=== PATIENT | male | born 1975 | race Caucasian/White ===

== ENCOUNTER → 2017-08-07 | Outpatient (REF) | payer OTHER ==
[2017-08-07 14:02] LABS: ALBUMIN 3.9 GM/DL (3.2-5.2); ALKALINE PHOSPHATASE 64 U/L (45-117); ALT/SGPT 60 U/L (12-78); ANION GAP 6 MEQ/L (8-16); AST/SGOT 48 U/L (7-37); BILIRUBIN,TOTAL 0.7 MG/DL (0.2-1.0); BLOOD UREA NITROGEN 8 MG/DL (7-18); CALCIUM LEVEL 9.4 MG/DL (8.5-10.1); CARBON DIOXIDE LEVEL 28 MEQ/L (21-32); CHLORIDE LEVEL 98 MEQ/L (98-107); CREATININE FOR GFR 0.82 MG/DL (0.70-1.30); GLOMERULAR FILTRATION RATE > 60.0 (>60); GLUCOSE, FASTING 114 MG/DL (70-100); POTASSIUM SERUM 4.5 MEQ/L (3.5-5.1); SODIUM LEVEL 132 MEQ/L (136-145); TOTAL PROTEIN 7.8 GM/DL (6.4-8.2)
[2017-08-07 14:06] LABS: INR 1.03; PROTHROMBIN TIME 13.7 SECONDS (12.4-14.5)
[2017-08-08 10:36] LABS: ALPHA FETOPROTEIN TUMOR QUANT < 1.3 NG/ML (<8.1)
== END ==
LOC: M SFHCADAM 08:13
DX: K75.81 Nonalcoholic steatohepatitis (NASH) (principal)

== ENCOUNTER → 2018-01-31 | Outpatient (CLI) | payer OTHER | LOC: M RAD 08:13 | DX: K75.81 Nonalcoholic steatohepatitis (NASH) (principal) | CPT/HCPCS: 76705 ==

== ENCOUNTER → 2018-02-21 | Outpatient (REF) | payer OTHER ==
[2018-02-21 13:12] LABS: INR 0.95; PROTHROMBIN TIME 12.8 SECONDS (12.1-14.4)
[2018-02-21 13:26] LABS: ALBUMIN 3.8 GM/DL (3.2-5.2); ALBUMIN/GLOBULIN RATIO 1.03 (1.00-1.93); ALKALINE PHOSPHATASE 83 U/L (45-117); ALT/SGPT 76 U/L (12-78); ANION GAP 12 MEQ/L (8-16); AST/SGOT 90 U/L (7-37); BILIRUBIN,TOTAL 0.4 MG/DL (0.2-1.0); BLOOD UREA NITROGEN 5 MG/DL (7-18); CALCIUM LEVEL 8.6 MG/DL (8.5-10.1); CARBON DIOXIDE LEVEL 24 MEQ/L (21-32); CHLORIDE LEVEL 96 MEQ/L (98-107); CHOLESTEROL LEVEL 167 MG/DL (<200); CHOLESTEROL RISK RATIO 2.455 (<5); CREATININE FOR GFR 0.78 MG/DL (0.70-1.30); GLOMERULAR FILTRATION RATE > 60.0 (>60); GLUCOSE, FASTING 84 MG/DL (70-100); HDL CHOLESTEROL 68 MG/DL (>40); LDL CHOLESTEROL 50 MG/DL (<100); NON-HDL-C 99 MG/DL; POTASSIUM SERUM 3.8 MEQ/L (3.5-5.1); SODIUM LEVEL 132 MEQ/L (136-145); TOTAL PROTEIN 7.5 GM/DL (6.4-8.2); TRIGLYCERIDES LEVEL 243 MG/DL (<150)
[2018-02-23 09:59] LABS: ALPHA FETOPROTEIN TUMOR QUANT 2.3 NG/ML (<8.1)
== END ==
LOC: M SFHCADAM 10:09
DX: K75.81 Nonalcoholic steatohepatitis (NASH) (principal); E78.49 Other hyperlipidemia; E11.9 Type 2 diabetes mellitus without complications; E55.9 Vitamin D deficiency, unspecified

== ENCOUNTER → 2018-09-14 | Outpatient (CLI) | payer OTHER ==
[~2018-09-14] MED LIST: AMOXICILLIN XX; ASPI81TA83 OR; GLUC10TA3 OR; GLUC850T OR; HYDR25TA6 OR; INSULANT SC; LISI20TA5 OR; REFLUX MED PO; ZOCO5TAB OR; [UNRECOGNIZED DRUG - OTHER]; novolo
--- NOTE | 2018-09-14 13:16 | REP ---
CAROTID ULTRASOUND: Real-time ultrasound evaluation and duplex Doppler interrogation of the extracranial carotid vasculature is performed. There is mild plaquing and narrowing in both carotid bulbs extending into the internal and external carotid arteries. Luminal narrowing is less than 50%. There is no evidence of hemodynamically significant stenosis of either internal carotid artery. Normal flow velocities are seen. The vertebral arteries demonstrate normal direction of flow. RIGHT LEFT Peak systolic velocity ICA 112.8 cm/s 95.4 cm/s End diastolic velocity ICA 36.9 cm/s 27.2 cm/s Peak systolic velocity CCA 154.8 cm/s 158.4 cm/s Peak systolic velocity ECA 194.4 cm/s 136.2 cm/s ICA/CCA ratio 1.04 0.90 IMPRESSION: Bilateral luminal narrowing of the internal carotid arteries less than 50%. No evidence of hemodynamically significant stenosis. Electronically Signed by Shyam De La Garza MD 09/14/2018 01:08 P
--- NOTE | 2018-09-19 00:21 | ECHO ---
DATE OF PROCEDURE: 09/14/2018 DATE OF ; 1975 AGE: 43 REFERRING PROVIDER: KISHOR Cuadra REASON FOR THE STUDY: Generalized edema. 2D MEASUREMENTS: IVS: 1.0 cm LV: 4.9 cm LVPW: 1.0 cm LA: 4.0 cm Aorta: 2.7 cm RV: 3.2 cm IVC: 1.5 cm DOPPLER MEASUREMENTS: Peak velocity across the aortic valve: 1.5 m/s Peak velocity across the LVOT: 1.4 m/s Mitral E: 1.0, Mitral A: 0.89 with a ratio of 1.1 2D COMMENTS: 1. Normal left ventricular size, wall thickness, and normal global left ventricular systolic function. The estimated left ventricular systolic ejection fraction is 60-65%. 2. Borderline enlarged left atrium at 4.0 cm. Normal right atrium and right ventricle. 3. The atrial septum appeared to be normal without evidence of defect or shunt. 4. Normal aortic root. 5. No pericardial effusion seen. 6. The aortic valve, mitral valve, tricuspid valve, and pulmonic valve appeared to be normal. The proximal pulmonary artery branches were not well visualized. 7. The inferior vena cava was normal in size, central venous pressure is most likely normal. DOPPLER: No significant valvular abnormalities detected. Abnormal relaxation pattern was noted across the mitral valve annulus consistent with pseudo-normal pattern, left ventricular end-diastolic pressure might be elevated. IMPRESSION: 1. Normal global left ventricular systolic function. There are features of left ventricular diastolic dysfunction, grade 2. 2. No significant valvular abnormality detected. MTDD
== END ==
LOC: M RAD 11:44
PROVIDERS: ATTEND Physician Assistant Medical
DX: I77.9 Disorder of arteries and arterioles, unspecified (principal); R60.1 Generalized edema; I11.9 Hypertensive heart disease without heart failure

== ENCOUNTER → 2018-11-19 | Outpatient (REF) | payer OTHER ==
[~2018-11-19] MED LIST changes: +FINA5TAB2; +FURO20TA2; +HYDR-3716; +KEFL500C17 PO; +MORP-69
[2018-11-19 14:09] LABS: APPEARANCE, URINE CLEAR (CLEAR); BACTERIA, URINE AUTO NEGATIVE (NEGATIVE); BILIRUBIN, URINE AUTO NEGATIVE (NEGATIVE); BLOOD, URINE BLOOD NEGATIVE (NEGATIVE); COLOR, URINE STRAW (YELLOW); GLUCOSE, URINE (UA) AUTO NEGATIVE (NEGATIVE); KETONE, URINE AUTO NEGATIVE (NEGATIVE); LEUKOCYTE ESTERASE, URINE AUTO NEGATIVE (NEGATIVE); MUCUS, URINE SMALL (NEGATIVE); NITRITE, URINE AUTO NEGATIVE (NEGATIVE); PROTEIN, URINE AUTO NEGATIVE (NEGATIVE); RBC, URINE AUTO 0 /HPF (0-3); SPECIFIC GRAVITY URINE AUTO 1.002 (1.002-1.035); SQUAMOUS EPITHELIAL CELL UR AU 0 /HPF (0-6); UROBILINOGEN, URINE AUTO 0.2 mg/dL (0.0-2.0); WBC, URINE AUTO 0 /HPF (0-3)
[2018-11-19 14:10] LABS: WHITE BLOOD COUNT 5.5 10^3/uL (4.0-10.0)
[2018-11-19 14:11] LABS: BASO % 0.4 % (0.0-1.0); EOS # 0.1 10^3/uL (0.0-0.50); EOS % 1.6 % (0.0-3.0); HEMOGLOBIN 13.5 g/dl (13.5-17.5); LYMPH % 35.5 % (24.0-44.0); MEAN CORPUSCULAR HEMOGLOBIN 32.7 pg (27.0-33.0); MEAN CORPUSCULAR HGB CONC 34.6 g/dl (32.0-36.5); MEAN CORPUSCULAR VOLUME 94.4 fl (80.0-96.0); MONO # 0.5 10^3/uL (0.0-0.8); MONO % 9.5 % (0.0-5.0); NEUTROPHILS # 2.9 10^3/uL (1.8-7.7); NEUTROPHILS % 52.8 % (36.0-66.0); PLATELET COUNT, AUTOMATED 206 10^3/uL (150-450); RED BLOOD COUNT 4.13 10^6/uL (4.30-6.10)
[2018-11-19 14:28] LABS: ALBUMIN 3.9 GM/DL (3.2-5.2); ALT/SGPT 45 U/L (12-78); BILIRUBIN,TOTAL 0.6 MG/DL (0.2-1.0); BLOOD UREA NITROGEN 4 MG/DL (7-18); CALCIUM LEVEL 9.4 MG/DL (8.5-10.1); CARBON DIOXIDE LEVEL 27 MEQ/L (21-32); CHLORIDE LEVEL 98 MEQ/L (98-107); CHOLESTEROL LEVEL 170 MG/DL (<200); CHOLESTEROL RISK RATIO 3.148 (<5); CREATININE FOR GFR 0.78 MG/DL (0.70-1.30); GLOMERULAR FILTRATION RATE > 60.0 (>60); GLUCOSE, FASTING 109 MG/DL (70-100); HDL CHOLESTEROL 54 MG/DL (>40); NON-HDL-C 116 MG/DL; POTASSIUM SERUM 3.9 MEQ/L (3.5-5.1); SODIUM LEVEL 134 MEQ/L (136-145); TOTAL PROTEIN 7.6 GM/DL (6.4-8.2); TRIGLYCERIDES LEVEL 468 MG/DL (<150)
[2018-11-19 14:35] LABS: HEMOGLOBIN A1c 5.9 %
[2018-11-19 14:53] LABS: CREATININE, URINE 22.3 MG/DL; MALB URINE SIEMENS 18.2 MG/L; MAU/CREAT RATIO 81.6 MCG/MG (0.0-30.0)
== END ==
LOC: M SFHCADAM 09:02
PROVIDERS: ATTEND Physician Assistant Medical
DX: E11.9 Type 2 diabetes mellitus without complications (principal); F17.210 Nicotine dependence, cigarettes, uncomplicated; K75.81 Nonalcoholic steatohepatitis (NASH); G47.33 Obstructive sleep apnea (adult) (pediatric); E78.49 Other hyperlipidemia; K21.9 Gastro-esophageal reflux disease without esophagitis; I77.9 Disorder of arteries and arterioles, unspecified; M51.36 Other intervertebral disc degeneration, lumbar region; R39.12 Poor urinary stream

== ENCOUNTER 2018-11-22 18:01 | Emergency (ER) | payer OTHER ==
[~2018-11-22] VITALS: Ht 182.9 cm; Wt 118.2 kg
[~2018-11-22 18:01] MED LIST changes: -FINA5TAB2; -FURO20TA2; -HYDR-3716; -KEFL500C17 PO; -MORP-69
[2018-11-22] MEDS ORDERED: HYDR-3716 (18:09)
[2018-11-22] MEDS ORDERED: MORP-69 (18:09)
[2018-11-22] MEDS ORDERED: FINA5TAB2 (18:09)
[2018-11-22] MEDS ORDERED: FURO20TA2 (18:09)
[2018-11-22] MEDS ORDERED: LIDOCAINE 2% MDV 20 ML VIAL SC ONE (18:45)
[2018-11-22] MEDS ORDERED: KEFL500C17 PO (19:05)
[2018-11-22] MEDS ORDERED: ADACEL/BOOSTRIX VACCINE (DIPHTH/PERTUSS/ACELL/TETANUS)0.5ML SYR (90715) IM ONE (19:15)
[2018-11-22 19:27] VITALS: BP 131/75
== END 2018-11-22 19:28 | disposition home or self-care (01) ==
LOC: M ED 18:01
DX: S61.210A Laceration without foreign body of right index finger without damage to nail, initial encounter (principal); W26.8XXA Contact with other sharp object(s), not elsewhere classified, initial encounter; Y92.098 Other place in other non-institutional residence as the place of occurrence of the external cause; F17.200 Nicotine dependence, unspecified, uncomplicated

== ENCOUNTER → 2019-01-02 | Outpatient (CLI) | payer OTHER ==
[~2019-01-02] MED LIST changes: +FINA5TAB2; +FURO20TA2; +GASTROGRAFIN SOLUTION 30ML (Q9963) As Ordered ONE; +HYDR-3716; +ISOVUE-370 76% 100ML VIAL (Q9967) As Ordered ONE; +KEFL500C17 PO; +MORP-69
--- NOTE | 2019-01-02 17:10 | REP ---
CT abdomen pelvis with IV and oral contrast: History: Rectal bleeding. Dilated portal vein. CT contrast dose: 100 ml of intravenous Isovue [address] findings: Preliminary digital overhauler bus truck radiograph is unremarkable. The lung bases are essentially clear. The liver shows mild diffuse fatty infiltration. It is not felt to be enlarged. No focal liver lesion is seen. The spleen is normal in size homogeneous in texture. No adrenal lesion is observed on either side. The gallbladder is unremarkable. Main portal vein measures 18 mm in greatest AP dimension which is somewhat enlarged. The umbilical vein is not felt to be dilated. Pancreas shows no there is a mucosal or luminal calcification at the junction of the second and third portion of the duodenum. No retroperitoneal mass or adenopathy is seen. There is diffuse moderate thickening of the wall of the urine distended bladder consistent with cystitis. Small and large bowel loops are normal in the upper abdomen. A normal appendix is seen. No bowel wall mass lesion is observed. There are some calcifications in the vas deferens. No abdominal wall defect is seen. Bone window settings show no bony destructive lesion. Impression: Diffuse moderate mural thickening in the urinary bladder consistent with cystitis. The urinary bladder is somewhat distended. There is diffuse fatty infiltration of the liver. Main portal vein is 18.5 mm in diameter is mildly enlarged. There is no other CT evidence of portal hypertension. No gastrointestinal mass or obstruction. Normal appendix. Electronically Signed by Gustavo Tiwari MD 01/03/2019 07:55 A
== END ==
LOC: M RAD 14:03
PROVIDERS: ATTEND Internal Medicine Gastroenterology
DX: K62.5 Hemorrhage of anus and rectum (principal)
CPT/HCPCS: 74177; Q9963; Q9967

== ENCOUNTER → 2019-01-11 | Outpatient (CLI) | payer OTHER ==
[~2019-01-11] MED LIST changes: -GASTROGRAFIN SOLUTION 30ML (Q9963) As Ordered ONE; -ISOVUE-370 76% 100ML VIAL (Q9967) As Ordered ONE
[2019-01-11 13:43] LABS: BASO % 0.4 % (0.0-1.0); EOS # 0.1 10^3/uL (0.0-0.5); EOS % 1.6 % (0.0-3.0); HEMATOCRIT 40.3 % (42.0-52.0); HEMOGLOBIN 13.9 g/dl (13.5-17.5); LYMPH # 2.2 10^3/uL (1.5-5.0); LYMPH % 30.6 % (24.0-44.0); MEAN CORPUSCULAR HEMOGLOBIN 32.2 pg (27.0-33.0); MEAN CORPUSCULAR HGB CONC 34.5 g/dl (32.0-36.5); MEAN CORPUSCULAR VOLUME 93.3 fl (80.0-96.0); MONO # 0.6 10^3/uL (0.0-0.8); NEUTROPHILS # 4.1 10^3/uL (1.5-8.5); NEUTROPHILS % 58.1 % (36.0-66.0); PLATELET COUNT, AUTOMATED 272 10^3/uL (150-450); RED BLOOD COUNT 4.32 10^6/uL (4.30-6.10)
[2019-01-11 13:53] LABS: INR 1.11
[2019-01-11 14:29] LABS: IRON (FE) 108 UG/DL (65-175); PERCENT SATURATION 23.8 % (19.7-50.0); TOTAL IRON BINDING CAPACITY 453 UG/DL (250-450)
[2019-01-11 14:51] LABS: HEPATITIS B SURFACE ANTIGEN NEGATIVE (NEGATIVE)
[2019-01-11 15:17] LABS: HEPATITIS C VIRUS ABY INDEX 0.1 INDEX (<0.8)
[2019-01-11 15:18] LABS: HEPATITIS B CORE ANTIBODY IGM NEGATIVE (NEGATIVE)
[2019-01-11 15:20] LABS: HEPATITIS A ANTIBODY IGM NEGATIVE (NEGATIVE)
[2019-01-15 00:10] LABS: ANCA-ATYPICAL <1:20 titer (Neg:<1:20); ANTI-MITOCHONDRIAL ANTIBODY <20.0 Units (0.0-20.0); ANTINUCLEAR ANTIBODIES DIRECT Negative (Negative); CERULOPLASMIN 14.6 mg/dL (16.0-31.0); CYTOPLASMIC NEUTROP AB ANCA-C <1:20 titer (Neg:<1:20); PERINUCLEAR AB ANCA-P <1:20 titer (Neg:<1:20); TISSUE TRANSGLUTAMINASE IgA <2 U/mL (0-3)
== END ==
LOC: M LABDRWAD 10:08
PROVIDERS: ATTEND Internal Medicine Gastroenterology
DX: K62.5 Hemorrhage of anus and rectum (principal)

== ENCOUNTER 2019-03-01 09:52 | Day surgery (SDC) | payer OTHER ==
[~2019-03-01] VITALS: Ht 185.4 cm; Wt 119.5 kg
[~2019-03-01 09:52] MED LIST changes: +AMLO5TAB6 PO; +ASPI81TA85 PO; +ATOR80TA59 PO; +FLON1SPR; +GLIP10TA PO; -HYDR-3716; +HYDR-3716 PO; +LIDOCAINE 2% INJ 100 MG/5 ML SDV (FOR ANES.) As Ordered ONE; +LISI20TA19 PO; +LORA-674 PO; +METF850T4 PO; -MORP-69; +MORP-69 PO; +NS 1,000 ML IV SCH; +OMEP-218 PO; +PROPOFOL 200 MG/20 ML VIAL As Ordered ONE; +VITA200015 PO
[2019-03-01] MEDS ORDERED: fentaNYL 100 MCG/2 ML INJECTION (J3010) As Ordered ONE (10:59)
--- NOTE | 2019-03-01 11:19 | ROOR ---
Patient Name: Gt Gunter Procedure Date: 03/01/2019 11:02 AM Date of : 1975 Age: 43 Room: [facility], [facility]IN [facility] Gender: Male Note Status: Finalized Procedure: Upper GI endoscopy Indications: Epigastric abdominal pain, Periumbilical abdominal pain, Lower abdominal pain Providers: Henrique BUTLER MD Referring MD: KISHOR Parr Requesting Provider: Medicines: Monitored Anesthesia Care Complications: No immediate complications. Procedure: Pre-Anesthesia Assessment: - The heart rate, respiratory rate, oxygen saturations, blood pressure, adequacy of pulmonary ventilation, and response to care were monitored throughout the procedure. The Endoscope was introduced through the mouth, and advanced to the second part of duodenum. The upper GI endoscopy was accomplished without difficulty. The patient tolerated the procedure well. Findings: The esophagus was normal. (no varices) The stomach was normal. (large volume,compliant, no varices) The examined duodenum was normal. Impression: - Normal esophagus. - Normal stomach. - Normal examined duodenum. - No specimens collected. Recommendation: - Observe patient's clinical course. - Continue present medications. Henrique Butler MD Henrique BUTLER MD 03/01/2019 11:19:23 AM Electronically signed by Henrique BUTLER MD Number of Addenda: 0 Note Initiated On: 03/01/2019 11:02 AM Estimated Blood Loss: Estimated blood loss: none.
[2019-03-01] MEDS ORDERED: PROPOFOL 200 MG/20 ML VIAL As Ordered ONE (11:32)
--- NOTE | 2019-03-01 11:35 | ROOR ---
Patient Name: Gt Gunter Procedure Date: 03/01/2019 11:03 AM Date of : 1975 Age: 43 Room: [facility] Gender: Male Note Status: Finalized Procedure: Colonoscopy Indications: Periumbilical abdominal pain, Pelvic pain, Hematochezia, Change in bowel habits Providers: Henrique BUTLER MD Referring MD: KISHOR Parr Requesting Provider: Medicines: Monitored Anesthesia Care Complications: No immediate complications. Procedure: Pre-Anesthesia Assessment: - The heart rate, respiratory rate, oxygen saturations, blood pressure, adequacy of pulmonary ventilation, and response to care were monitored throughout the procedure. The Colonoscope was introduced through the anus and advanced to 10 cm into the ileum. The colonoscopy was performed without difficulty. The patient tolerated the procedure well. The quality of the bowel preparation was adequate. Findings: The perianal and digital rectal examinations were normal. Internal hemorrhoids were found during retroflexion. The hemorrhoids were medium-sized. The colon (entire examined portion) appeared normal. The terminal ileum appeared normal. Impression: - Internal hemorrhoids. - The entire colon is normal. - The examined portion of the ileum was normal. - No specimens collected. Recommendation: - Use fiber, for example Citrucel, Fibercon, Konsyl or Metamucil. - Continue present medications. - Your recent CT scan showed an abnormal appearance of your bladder. Referral to a urologist has been made. - Return to referring physician as previously scheduled. Henrique Butler MD Henrique BUTLER MD 03/01/2019 11:35:17 AM Electronically signed by Henrique BUTLER MD Number of Addenda: 0 Note Initiated On: 03/01/2019 11:03 AM Estimated Blood Loss: Estimated blood loss: none.
[2019-03-01 11:59] VITALS: BP 161/88
== END 2019-03-01 12:20 | disposition home or self-care (01) ==
LOC: M OPP 09:52
PROVIDERS: ATTEND Internal Medicine Gastroenterology
DX: K64.8 Other hemorrhoids (principal); R10.2 Pelvic and perineal pain; R10.33 Periumbilical pain; K92.1 Melena; R10.13 Epigastric pain; I10 Essential (primary) hypertension; E11.9 Type 2 diabetes mellitus without complications; E78.00 Pure hypercholesterolemia, unspecified; G47.30 Sleep apnea, unspecified; K21.9 Gastro-esophageal reflux disease without esophagitis; M54.5 Low back pain; R39.11 Hesitancy of micturition; F17.210 Nicotine dependence, cigarettes, uncomplicated; Z79.899 Other long term (current) drug therapy; Z79.82 Long term (current) use of aspirin; Z79.84 Long term (current) use of oral hypoglycemic drugs; Z79.891 Long term (current) use of opiate analgesic
CPT/HCPCS: 43235; 45378; J3010

== ENCOUNTER → 2019-03-08 | Outpatient (REF) | payer OTHER ==
[~2019-03-08] MED LIST changes: -LIDOCAINE 2% INJ 100 MG/5 ML SDV (FOR ANES.) As Ordered ONE; -NS 1,000 ML IV SCH; -PROPOFOL 200 MG/20 ML VIAL As Ordered ONE
[2019-03-08 13:30] LABS: APPEARANCE, URINE CLEAR (CLEAR); BACTERIA, URINE AUTO NEGATIVE (NEGATIVE); BILIRUBIN, URINE AUTO NEGATIVE (NEGATIVE); BLOOD, URINE BLOOD NEGATIVE (NEGATIVE); COLOR, URINE STRAW (YELLOW); GLUCOSE, URINE (UA) AUTO NEGATIVE (NEGATIVE); KETONE, URINE AUTO NEGATIVE (NEGATIVE); LEUKOCYTE ESTERASE, URINE AUTO NEGATIVE (NEGATIVE); NITRITE, URINE AUTO NEGATIVE (NEGATIVE); PROTEIN, URINE AUTO NEGATIVE (NEGATIVE); RBC, URINE AUTO 0 /HPF (0-3); SPECIFIC GRAVITY URINE AUTO 1.006 (1.002-1.035); SQUAMOUS EPITHELIAL CELL UR AU 0 /HPF (0-6); UROBILINOGEN, URINE AUTO 0.2 mg/dL (0.0-2.0); WBC, URINE AUTO 0 /HPF (0-3)
== END ==
LOC: M SMT 13:14
PROVIDERS: ATTEND Nurse Practitioner Women's Health
DX: N32.89 Other specified disorders of bladder (principal)

== ENCOUNTER → 2019-03-08 | Outpatient (REF) | payer OTHER | LOC: M SFHCADAM 08:31 | PROVIDERS: ATTEND Physician Assistant Medical | DX: K75.81 Nonalcoholic steatohepatitis (NASH) (principal); E11.9 Type 2 diabetes mellitus without complications; R93.41 Abnormal radiologic findings on diagnostic imaging of renal pelvis, ureter, or bladder ==

== ENCOUNTER → 2019-03-19 | Outpatient (REF) | payer OTHER ==
[~2019-03-19] MED LIST changes: +COLA100C5 PO; +SIME80TA PO
== END ==
LOC: M SMT 13:21
PROVIDERS: ATTEND Nurse Practitioner Women's Health
DX: Z01.818 Encounter for other preprocedural examination (principal); N35.919 Unspecified urethral stricture, male, unspecified site

== ENCOUNTER → 2019-04-12 | Outpatient (CLI) | payer OTHER ==
--- NOTE | 2019-04-12 16:13 | REP ---
Right upper quadrant sonography: History: Nonalcoholic steatohepatitis. Comparison CT study January 02, 2019. Comparison sonography January 31, 2018. Findings: Scanning through right upper quadrant of the abdomen demonstrates normal sized thin-walled gallbladder without evidence of stone or polyp. Common bile duct is normal measuring 0.5 cm in greatest diameter. There is increased echogenicity and decreased insonation in the liver consistent with fatty infiltration. The liver is mildly enlarged with a 17.1 cm craniocaudal span in the midclavicular line. Main portal vein is slightly dilated at 18 mm. This is unchanged from January 02, 2019. Limited views of the pancreas show no abnormality. There is no evidence of ascites or right renal abnormality. The right kidney measures 11.8 x 6.4 x 6.3 cm. No focal liver lesion is seen. Impression: Evidence of fatty infiltration of the liver, mild hepatomegaly. The portal vein is somewhat dilated measuring 18 mm in AP dimension. Otherwise negative. Electronically Signed by Gustavo Tiwari MD 04/12/2019 08:50 P
== END ==
LOC: M RAD 10:08
PROVIDERS: ATTEND Physician Assistant Medical
DX: K75.81 Nonalcoholic steatohepatitis (NASH) (principal)

== ENCOUNTER → 2019-04-18 | Outpatient (CLI) | payer OTHER ==
--- NOTE | 2019-04-19 02:58 | REP ---
Clinical: Preoperative assessment . Comparison: 08/09/2015 . Technique: PA and lateral. Findings: The mediastinum and cardiac silhouette are normal. The lung wilkinson are clear and without acute consolidation, effusion, or pneumothorax. The skeletal structures are intact and normal. Impression: 1. No acute cardiopulmonary process. Electronically Signed by Alexi Kendrick MD 04/19/2019 02:50 A
== END ==
LOC: M ADAMS 11:11
PROVIDERS: ATTEND Nurse Practitioner Women's Health
DX: Z01.818 Encounter for other preprocedural examination (principal); E11.9 Type 2 diabetes mellitus without complications; N35.911 Unspecified urethral stricture, male, meatal

== ENCOUNTER → 2019-04-18 | Outpatient (REF) | payer OTHER ==
[2019-04-18 13:14] LABS: HEMATOCRIT 36.7 % (42.0-52.0); HEMOGLOBIN 12.6 g/dl (13.5-17.5); MEAN CORPUSCULAR HEMOGLOBIN 30.4 pg (27.0-33.0); MEAN CORPUSCULAR HGB CONC 34.3 g/dl (32.0-36.5); MEAN CORPUSCULAR VOLUME 88.6 fl (80.0-96.0); PLATELET COUNT, AUTOMATED 265 10^3/uL (150-450); RED BLOOD COUNT 4.14 10^6/uL (4.30-6.10); WHITE BLOOD COUNT 7.7 10^3/uL (4.0-10.0)
[2019-04-18 13:15] LABS: BASO % 0.4 % (0.0-1.0); EOS # 0.1 10^3/uL (0.0-0.5); EOS % 1.8 % (0.0-3.0); HEMATOCRIT 38.2 % (42.0-52.0); HEMOGLOBIN 12.5 g/dl (13.5-17.5); LYMPH % 27.1 % (24.0-44.0); MEAN CORPUSCULAR HEMOGLOBIN 29.5 pg (27.0-33.0); MEAN CORPUSCULAR HGB CONC 32.7 g/dl (32.0-36.5); MEAN CORPUSCULAR VOLUME 90.1 fl (80.0-96.0); MONO # 0.7 10^3/uL (0.0-0.8); MONO % 9.7 % (0.0-5.0); NEUTROPHILS # 4.4 10^3/uL (1.5-8.5); NEUTROPHILS % 60.7 % (36.0-66.0); PLATELET COUNT, AUTOMATED 268 10^3/uL (150-450); RED BLOOD COUNT 4.24 10^6/uL (4.30-6.10); WHITE BLOOD COUNT 7.2 10^3/uL (4.0-10.0)
[2019-04-18 13:25] LABS: INR 1.1
[2019-04-18 13:26] LABS: PARTIAL THROMBOPLASTIN TIME 30.1 SECONDS (25.0-38.4)
[2019-04-18 13:34] LABS: HEMOGLOBIN A1c 5.9 %
[2019-04-18 13:39] LABS: BLOOD UREA NITROGEN 8 MG/DL (7-18); CARBON DIOXIDE LEVEL 27 MEQ/L (21-32); CHLORIDE LEVEL 98 MEQ/L (98-107); CREATININE FOR GFR 0.81 MG/DL (0.70-1.30); GLOMERULAR FILTRATION RATE > 60.0 (>60); GLUCOSE, FASTING 106 MG/DL (70-100); POTASSIUM SERUM 3.9 MEQ/L (3.5-5.1); SODIUM LEVEL 133 MEQ/L (136-145)
[2019-04-18 13:49] LABS: ALT/SGPT 34 U/L (12-78); BILIRUBIN,TOTAL 0.4 MG/DL (0.2-1.0); BLOOD UREA NITROGEN 9 MG/DL (7-18); CALCIUM LEVEL 9.1 MG/DL (8.5-10.1); CARBON DIOXIDE LEVEL 25 MEQ/L (21-32); CHLORIDE LEVEL 97 MEQ/L (98-107); CHOLESTEROL LEVEL 162 MG/DL (<200); CHOLESTEROL RISK RATIO 2.571 (<5); CREATININE FOR GFR 0.89 MG/DL (0.70-1.30); GLOMERULAR FILTRATION RATE > 60.0 (>60); GLUCOSE, FASTING 102 MG/DL (70-100); HDL CHOLESTEROL 63 MG/DL (>40); LDL CHOLESTEROL 75 MG/DL (<100); NON-HDL-C 99 MG/DL; POTASSIUM SERUM 3.8 MEQ/L (3.5-5.1); SODIUM LEVEL 133 MEQ/L (136-145); TOTAL 25(OH) VITAMIN D 41.9 NG/ML (30.0-100.0); TOTAL PROTEIN 7.9 GM/DL (6.4-8.2); TRIGLYCERIDES LEVEL 122 MG/DL (<150)
[2019-04-22 14:07] LABS: CODEINE, URINE Negative (Cutoff=100); CREATININE, URINE 26.5 mg/dL (20.0-300.0); HYDROCODONE CONFIRM, URINE 626 ng/mL (Cutoff=100); HYDROCODONE, URINE Positive (.); HYDROMORPHONE CONFIRM, URINE 119 ng/mL (Cutoff=100); HYDROMORPHONE, URINE Positive (.); MORPHINE CONFIRM, URINE 1552 ng/mL (Cutoff=100); MORPHINE, URINE Positive (.); OPIATES, URINE Positive ng/mL (Cutoff=300)
== END ==
LOC: M SFHCADAM 11:07
PROVIDERS: ATTEND Physician Assistant Medical
DX: E11.9 Type 2 diabetes mellitus without complications (principal); M51.36 Other intervertebral disc degeneration, lumbar region

== ENCOUNTER 2019-04-26 09:51 | Day surgery (SDC) | payer OTHER ==
[~2019-04-26] VITALS: Ht 185.4 cm; Wt 119.7 kg
[~2019-04-26 09:51] MED LIST changes: +LIDOCAINE 2% INJ 100 MG/5 ML SDV (FOR ANES.) As Ordered ONE; +LR 1,000 ML IV ONE; +MIDAZOLAM INJ 2 MG/2 ML VIAL (J2250) As Ordered ONE; +ONDANSETRON 4MG/2ML VIAL (J2405) As Ordered ONE; +ceFAZolin SOD 1 GM in D5W MINI-BAG PLUS 50 ML IV ONE; +ceFAZolin SOD 2 GM in IV 1 EA IV ONE; +dexameTHASONE 4 MG/ML 1ML VIAL (J1100) As Ordered ONE; +fentaNYL 100 MCG/2 ML INJECTION (J3010) As Ordered ONE; +propofoL 200 MG/20 ML VIAL As Ordered ONE
[2019-04-26] MEDS ORDERED: FINA5TAB2 PO (10:38)
[2019-04-26] MEDS ORDERED: TAMS1CAP17 PO (10:38)
[2019-04-26] MEDS ORDERED: ACETAMINOPHEN 1000MG 100ML IV BTL (OFIRMEV) (J0131 PER 10MG) As Ordered ONE (13:14)
[2019-04-26] MEDS ORDERED: fentaNYL 100 MCG/2 ML INJECTION (J3010) As Ordered ONE (13:17)
[2019-04-26] MEDS ORDERED: PERCOCET 5MG/325MG TAB PO PRN (13:45)
[2019-04-26] MEDS ORDERED: ONDANSETRON 4MG/2ML VIAL (J2405) IV PRN (13:45)
[2019-04-26] MEDS ORDERED: METOCLOPRAMIDE INJ 10MG/2ML VIAL (J2765) IV PRN (13:45)
[2019-04-26] MEDS ORDERED: fentaNYL 100 MCG/2 ML INJECTION (J3010) IV PRN (13:45)
[2019-04-26] MEDS ORDERED: ACETAMINOPHEN TAB 650MG DOSE (2X325MG) PO PRN (13:45)
[2019-04-26 15:34] VITALS: BP 154/74
--- NOTE | 2019-04-26 20:47 | RO ---
DATE OF PROCEDURE: 04/26/2019 PREPROCEDURE DIAGNOSIS: Urethral stricture. POSTPROCEDURE DIAGNOSIS: Urethral stricture. PROCEDURE: Cystoscopy, direct vision internal urethrotomy, urethral meatal dilation. SURGEON: Talat Herrera MD OFFICE SERVICES ASSOCIATE: None. ANESTHESIA: General. OPERATIVE INDICATIONS: This is a 43-year-old male who was found to have a volar urethral stricture on office cystoscopy. He was brought to the operating room today for treatment. DESCRIPTION OF PROCEDURE: The patient was brought to the operating room and general anesthesia was induced. Prophylactic antibiotics were infused. He was then placed in the dorsal lithotomy position, prepped and draped in the usual sterile fashion. At this point, I attempted to insert a visual urethrotome into the urethra, but it would not go as the urethral meatus was too narrow. I, therefore, dilated his urethral meatus with a 20-Greek using curved metal sounds. Once that was done, I was able to advance the urethrotome in, and at the level of the volar urethra, there was a very narrow urethral stricture. At this point, I utilized a cold knife to incise the stricture at 12 o'clock, and the stricture appeared to be about 1-1/2 to 2 cm in length. Once I incised the stricture, I was able to get the scope all the way into the bladder. The bladder was thoroughly examined, and there were no abnormalities. The patient did appear to have a very large capacity bladder. There were no tumors seen. Bilateral urethral orifices were orthotopic and both effluxed clear urine. Before withdrawing the urethrotome out, I advanced a guidewire into the bladder. I then withdrew the urethrotome and utilized the wire to advance a 18-Greek ekwok tip catheter into the bladder. The balloon was filled with 10 mL of sterile water, and then the catheter was connected to gravity drainage. This marked the conclusion of the procedure. The patient was then taken out of the dorsal lithotomy position, awakened from anesthesia and transported to the recovery room in stable condition. Estimated blood loss: 5 mL. Complications: None. Specimens: None. PLAN: I will leave the patient's catheter in for at least 10-14 days. He will then followup for catheter removal and a voiding trial.
== END 2019-04-26 15:35 | disposition home or self-care (01) ==
LOC: M SDC 09:51
PROVIDERS: ATTEND Urology
DX: N35.912 Unspecified bulbous urethral stricture, male (principal); I10 Essential (primary) hypertension; E78.5 Hyperlipidemia, unspecified; E11.9 Type 2 diabetes mellitus without complications; K21.9 Gastro-esophageal reflux disease without esophagitis; G47.30 Sleep apnea, unspecified; Z79.84 Long term (current) use of oral hypoglycemic drugs; Z79.82 Long term (current) use of aspirin; Z79.899 Other long term (current) drug therapy; M54.5 Low back pain; F17.218 Nicotine dependence, cigarettes, with other nicotine-induced disorders
CPT/HCPCS: 52281; C1769; J0131; J0690; J1100; J2250; J2405; J3010

== ENCOUNTER → 2019-06-03 | Outpatient (REF) | payer OTHER ==
[~2019-06-03] MED LIST changes: +FINA5TAB2 PO; -LIDOCAINE 2% INJ 100 MG/5 ML SDV (FOR ANES.) As Ordered ONE; -LR 1,000 ML IV ONE; -MIDAZOLAM INJ 2 MG/2 ML VIAL (J2250) As Ordered ONE; -ONDANSETRON 4MG/2ML VIAL (J2405) As Ordered ONE; +TAMS1CAP17 PO; -ceFAZolin SOD 1 GM in D5W MINI-BAG PLUS 50 ML IV ONE; -ceFAZolin SOD 2 GM in IV 1 EA IV ONE; -dexameTHASONE 4 MG/ML 1ML VIAL (J1100) As Ordered ONE; -fentaNYL 100 MCG/2 ML INJECTION (J3010) As Ordered ONE; -propofoL 200 MG/20 ML VIAL As Ordered ONE
== END ==
LOC: M SMT 16:52
PROVIDERS: ATTEND Urology
DX: N39.0 Urinary tract infection, site not specified (principal)

== ENCOUNTER → 2019-09-03 | Outpatient (REF) | payer OTHER | LOC: M SMT 17:14 | PROVIDERS: ATTEND Urology | DX: R39.15 Urgency of urination (principal) ==

== ENCOUNTER → 2020-12-01 | Outpatient (REF) | payer OTHER ==
[~2020-12-01] MED LIST changes: +AMLO1TAB24 PO; -AMLO5TAB6 PO; -ASPI81TA85 PO; +ASPI81TA86 PO; -LISI20TA19 PO; +LISI20TA35 PO; +SIME80CH5 PO; -SIME80TA PO
[2020-12-02 12:37] LABS: BASO % 0.2 % (0.0-1.0); EOS % 0.2 % (0.0-3.0); HEMATOCRIT 31.4 % (42.0-52.0); HEMOGLOBIN 10.7 g/dl (13.5-17.5); LYMPH % 9.5 % (24.0-44.0); MEAN CORPUSCULAR HEMOGLOBIN 31.3 pg (27.0-33.0); MEAN CORPUSCULAR HGB CONC 34.1 g/dl (32.0-36.5); MEAN CORPUSCULAR VOLUME 91.8 fl (80.0-96.0); MONO # 1.4 10^3/uL (0.0-0.8); MONO % 12.6 % (2.0-8.0); NEUTROPHILS # 8.3 10^3/uL (1.5-8.5); NEUTROPHILS % 76.9 % (36.0-66.0); PLATELET COUNT, AUTOMATED 293 10^3/uL (150-450); RED BLOOD COUNT 3.42 10^6/uL (4.30-6.10); WHITE BLOOD COUNT 10.8 10^3/uL (4.0-10.0)
[2020-12-02 13:12] LABS: ALBUMIN 2.3 GM/DL (3.2-5.2); ALT/SGPT 37 U/L (12-78); BILIRUBIN,TOTAL 1.9 MG/DL (0.2-1.0); BLOOD UREA NITROGEN 7 MG/DL (7-18); CALCIUM LEVEL 8.4 MG/DL (8.5-10.1); CARBON DIOXIDE LEVEL 23 MEQ/L (21-32); CHLORIDE LEVEL 89 MEQ/L (98-107); CHOLESTEROL LEVEL 184 MG/DL (<200); CHOLESTEROL RISK RATIO 7.666 (<5); CREATININE FOR GFR 0.76 MG/DL (0.70-1.30); GLOMERULAR FILTRATION RATE > 60.0 (>60); GLUCOSE, FASTING 102 MG/DL (70-100); HDL CHOLESTEROL 24 MG/DL (>40); LDL CHOLESTEROL 132 MG/DL (<100); NON-HDL-C 160 MG/DL; POTASSIUM SERUM 4.8 MEQ/L (3.5-5.1); SODIUM LEVEL 122 MEQ/L (136-145); TOTAL PROTEIN 7.6 GM/DL (6.4-8.2); TRIGLYCERIDES LEVEL 141 MG/DL (<150)
[2020-12-02 13:17] LABS: MALB URINE SIEMENS 10.1 MG/L; MAU/CREAT RATIO 5.4 MCG/MG (0.0-30.0)
[2020-12-02 14:12] LABS: HEMOGLOBIN A1c 6.5 %
== END ==
LOC: M SFHCADAM 16:09
PROVIDERS: ATTEND Physician Assistant Medical
DX: G47.33 Obstructive sleep apnea (adult) (pediatric) (principal); F17.210 Nicotine dependence, cigarettes, uncomplicated; K75.81 Nonalcoholic steatohepatitis (NASH); E11.9 Type 2 diabetes mellitus without complications

== ENCOUNTER 2020-12-03 10:13 | Emergency (ER) | payer OTHER ==
[~2020-12-03] VITALS: Ht 185.4 cm; Wt 156.4 kg
[~2020-12-03 10:13] MED LIST changes: -FLON1SPR; +FLON1SPR NARES
[2020-12-03] MEDS ORDERED: FURO40TA2 PO (10:25)
[2020-12-03 13:59] LABS: BASO % 0.2 % (0.0-1.0); EOS % 0.1 % (0.0-3.0); HEMATOCRIT 30.1 % (42.0-52.0); HEMOGLOBIN 10.6 g/dl (13.5-17.5); LYMPH % 11.1 % (24.0-44.0); MEAN CORPUSCULAR HGB CONC 35.2 g/dl (32.0-36.5); MONO # 1.3 10^3/uL (0.0-0.8); MONO % 14.4 % (2.0-8.0); NEUTROPHILS # 6.8 10^3/uL (1.5-8.5); NEUTROPHILS % 73.9 % (36.0-66.0); PLATELET COUNT, AUTOMATED 266 10^3/uL (150-450); RED BLOOD COUNT 3.42 10^6/uL (4.30-6.10); WHITE BLOOD COUNT 9.3 10^3/uL (4.0-10.0)
--- NOTE | 2020-12-03 14:15 | REP ---
INDICATION: peripheral edema, ?CHF. COMPARISON: 04/18/2019 TECHNIQUE: PA and lateral FINDINGS: The superior mediastinal structures are midline. The cardiac silhouette is unremarkable in size, shape, and position. The diaphragmatic surfaces of the lungs are regular, and the costophrenic angles are clear. The pulmonary wilkinson are clear. The imaged osseous structures are intact. IMPRESSION: There is no acute cardiopulmonary disease. No significant change compared to the prior exam <Electronically signed by Nitin Martinez > 12/03/20 [id number]
[2020-12-03 14:45] LABS: BLOOD UREA NITROGEN 6 MG/DL (7-18); CREATININE FOR GFR 0.87 MG/DL (0.70-1.30); GLUCOSE, FASTING 108 MG/DL (70-100)
[2020-12-03 14:46] LABS: ALBUMIN 2.3 GM/DL (3.2-5.2); ALT/SGPT 37 U/L (12-78); BILIRUBIN,TOTAL 2.7 MG/DL (0.2-1.0); CALCIUM LEVEL 7.9 MG/DL (8.5-10.1); CARBON DIOXIDE LEVEL 29 MEQ/L (21-32); CHLORIDE LEVEL 79 MEQ/L (98-107); GLOMERULAR FILTRATION RATE > 60.0 (>60); NT-PRO BNP 225 PG/ML (<125); POTASSIUM SERUM 3.8 MEQ/L (3.5-5.1); SODIUM LEVEL 117 MEQ/L (136-145); TOTAL PROTEIN 7.7 GM/DL (6.4-8.2); TROPONIN I < 0.02 NG/ML (< 0.10)
[2020-12-03] MEDS ORDERED: NS 500 ML IV ONE (14:50)
[2020-12-03 14:54] LABS: RSV AMPLIFICATION NEGATIVE (NEGATIVE)
[2020-12-03] MEDS ORDERED: ISOVUE-370 76% 100ML VIAL As Ordered ONE (14:55)
[2020-12-03 15:18] LABS: CPK CREATINE PHOSPHOKINASE 1279 U/L (39-308); MB/CK RELATIVE INDEX 0.94 (< OR =4)
--- NOTE | 2020-12-03 15:44 | REP ---
INDICATION: LLQ, RLQ, RUQ pain. COMPARISON: 04/04/2018 the only prior TECHNIQUE: Standard helical technique after the intravenous administration of 100 cc Isovue 370 FINDINGS: There is hepatomegaly and diffuse low density throughout the hepatic parenchyma. There are no enhancing hepatic lesions. The gallbladder, spleen, pancreas, adrenal glands, and kidneys are within normal limits and essentially unchanged. Multiple nonenlarged para-aortic lymph nodes are noted status quo. Since the last examination recanalization of the umbilical vein has developed. Motion artifact obscures the detail in the alejandro hepatis. Borderline lymph nodes are suggested. There is at least 1 enlarged lymph node which has increased in size compared to the prior exam and is seen anterior to the inferior vena cava. This has a short axis dimension of 1.7 cm. There is no evidence of free intraperitoneal air. There is free fluid. Multiple mildly dilated gas-filled small bowel loops are seen in the abdomen. Limited evaluation of the colon shows no evidence of a gross abnormality. Once again, there is evidence of circumferential thickening of the aguilar of the urinary bladder status quo. There is no significant change in appearance of the imaged osseous structures. IMPRESSION: 1. There is fatty infiltration of the liver and hepatomegaly. 2. There is been the interim development of ascites the etiology of which is uncertain. 3. There is recanalization of the umbilical vein which suggests portal hypertension. 4. There is adenopathy as described above. 5. Other findings as described above. <Electronically signed by Nitin Martinez > 12/03/20 [id number]
[2020-12-03 16:11] LABS: APPEARANCE, URINE CLEAR (CLEAR); BACTERIA, URINE AUTO NEGATIVE (NEGATIVE); BILIRUBIN, URINE AUTO NEGATIVE (NEGATIVE); BLOOD, URINE BLOOD NEGATIVE (NEGATIVE); COLOR, URINE YELLOW (YELLOW); GLUCOSE, URINE (UA) AUTO NEGATIVE (NEGATIVE); KETONE, URINE AUTO NEGATIVE (NEGATIVE); LEUKOCYTE ESTERASE, URINE AUTO NEGATIVE (NEGATIVE); NITRITE, URINE AUTO NEGATIVE (NEGATIVE); PROTEIN, URINE AUTO NEGATIVE (NEGATIVE); RBC, URINE AUTO 2 /HPF (0-3); SPECIFIC GRAVITY URINE AUTO 1.028 (1.002-1.035); SQUAMOUS EPITHELIAL CELL UR AU 1 /HPF (0-6); WBC, URINE AUTO 0 /HPF (0-3)
[2020-12-03] MEDS ORDERED: ASPI81TA26 PO (16:34)
[2020-12-03] MEDS ORDERED: HOME MED LIST COMPLETE! XX SCH (16:40)
[2020-12-03 17:21] VITALS: BP 129/62
--- NOTE | 2020-12-03 19:07 | ECGEPIP ---
[facility] - ED Test Date: 2020-12-03 Pat Name: ROLAND CARRILLO Department: Room: - Gender: Male Transportation Supervisor: LR : 1975 Requested By: ABRAHAM Galarza PA-C Order Number: [id number] Reading MD: Reginald Lane Measurements Intervals [place] Rate: 99 P: 48 CA: 156 QRS: 64 QRSD: 82 T: 43 QT: 376 QTc: 482 Interpretive Statements Normal sinus rhythm Prolonged QT SIMILAR TO 07/30/15 Electronically Signed on 12-03-2020 19:07:[address]
--- NOTE | 2020-12-07 15:03 | ED PDOC ---
Post-Departure Follow-Up patient sent certified letter pertaiing to radiology Brooke Sousa MD Dec 07, 2020 15:03
== END 2020-12-03 17:15 | disposition left against medical advice (07) ==
LOC: M ED 10:13
DX: R10.84 Generalized abdominal pain (principal); E87.1 Hypo-osmolality and hyponatremia; I11.0 Hypertensive heart disease with heart failure; I50.9 Heart failure, unspecified; R18.8 Other ascites; R74.01 Elevation of levels of liver transaminase levels; F10.10 Alcohol abuse, uncomplicated; Z53.9 Procedure and treatment not carried out, unspecified reason; R22.43 Localized swelling, mass and lump, lower limb, bilateral; K76.0 Fatty (change of) liver, not elsewhere classified; R16.0 Hepatomegaly, not elsewhere classified; E11.9 Type 2 diabetes mellitus without complications; G47.33 Obstructive sleep apnea (adult) (pediatric); K21.9 Gastro-esophageal reflux disease without esophagitis; E66.9 Obesity, unspecified; F17.200 Nicotine dependence, unspecified, uncomplicated; Z79.899 Other long term (current) drug therapy; Z79.82 Long term (current) use of aspirin
CPT/HCPCS: 71046; 74177; 80053; 81001; 82550; 82553; 83605; 83880; 85025; 87631; 93005; 96360; 96361; 99284; Q9967

== ENCOUNTER 2020-12-22 11:30 | Inpatient (IN) | payer OTHER ==
[~2020-12-22] VITALS: Ht 180.3 cm; Wt 143.6 kg
[2020-12-22] VITALS (11 sets, daily range): BP systolic 90–125; BP diastolic 47–78
[~2020-12-22 11:30] MED LIST changes: +ASPI81TA26 PO; +FURO40TA2 PO
[2020-12-22 15:20] LABS: VENOUS BASE EXCESS 1.5 (-2.0-2.0); VENOUS HCO3 27.8 MEQ/L (23.0-27.0); VENOUS O2 SATURATION 61.3 % (60.0-80.0); VENOUS PARTIAL PRESSURE CO2 51.2 mmHg (38.0-50.0); VENOUS PARTIAL PRESSURE O2 36.2 mmHg (30.0-50.0); VENOUS PH 7.352 UNITS (7.330-7.430); VENOUS STANDARD HCO3 25.1 MEQ/L; VENOUS TOTAL CO2 29.3 MEQ/L (24.0-28.0)
[2020-12-22 15:23] LABS: BASO % 0.1 % (0.0-1.0); EOS % 0.3 % (0.0-3.0); HEMATOCRIT 28.7 % (42.0-52.0); HEMOGLOBIN 10.1 g/dl (13.5-17.5); LYMPH % 8.7 % (24.0-44.0); MEAN CORPUSCULAR HEMOGLOBIN 30.1 pg (27.0-33.0); MEAN CORPUSCULAR HGB CONC 35.2 g/dl (32.0-36.5); MEAN CORPUSCULAR VOLUME 85.4 fl (80.0-96.0); MONO # 1.1 10^3/uL (0.0-0.8); MONO % 9.8 % (2.0-8.0); NEUTROPHILS # 9.3 10^3/uL (1.5-8.5); NEUTROPHILS % 80.5 % (36.0-66.0); PLATELET COUNT, AUTOMATED 389 10^3/uL (150-450); RED BLOOD COUNT 3.36 10^6/uL (4.30-6.10); WHITE BLOOD COUNT 11.5 10^3/uL (4.0-10.0)
--- NOTE | 2020-12-22 15:25 | REP ---
INDICATION: DYSPNEA/COUGH. COMPARISON: 12/03/2020 a two view exam TECHNIQUE: Portable FINDINGS: The technique utilized in obtaining the radiograph has magnified the cardiac silhouette and accentuated the interstitial markings. The superior mediastinal structures are midline. The cardiac silhouette is unremarkable in size, shape, and position. The diaphragmatic surfaces of the lungs are regular, and the costophrenic angles are clear. The pulmonary wilkinson are clear. The imaged osseous structures are intact. IMPRESSION: There is no acute cardiopulmonary disease. <Electronically signed by Nitin Martinez > 12/22/20 [id number]
[2020-12-22] MEDS ORDERED: FUROSEMIDE 40MG/4ML VIAL (J1940) IV ONE (15:35)
[2020-12-22] MEDS ORDERED: LIDOCAINE 2% 5ML JELLY UROJET TOP ONE (16:00)
[2020-12-22 16:07] LABS: ALBUMIN 2.1 GM/DL (3.2-5.2); ALT/SGPT 38 U/L (12-78); BILIRUBIN,DIRECT 1.4 MG/DL (0.0-0.2); BILIRUBIN,TOTAL 1.9 MG/DL (0.2-1.0); BLOOD UREA NITROGEN 13 MG/DL (7-18); CALCIUM LEVEL 8.5 MG/DL (8.5-10.1); CARBON DIOXIDE LEVEL 27 MEQ/L (21-32); CHLORIDE LEVEL 74 MEQ/L (98-107); CK-MB VALUE MASS 14.1 NG/ML (<3.6); CPK CREATINE PHOSPHOKINASE 566 U/L (39-308); CREATININE FOR GFR 1.19 MG/DL (0.70-1.30); ETHYL ALCOHOL (ETHANOL) < 0.003 % (0.000-0.010); GLOMERULAR FILTRATION RATE > 60.0 (>60); GLUCOSE, FASTING 92 MG/DL (70-100); MB/CK RELATIVE INDEX 2.49 (< OR =4); NT-PRO BNP 198 PG/ML (<125); SODIUM LEVEL 108 MEQ/L (136-145); TOTAL PROTEIN 7.2 GM/DL (6.4-8.2); TROPONIN I < 0.02 NG/ML (< 0.10)
[2020-12-22 16:37] LABS: OSMOLALITY SERUM 227 MOSM/KG (275-295)
[2020-12-22 16:47] LABS: FREE THYROXINE INDEX 2.7 % (1.4-3.8); T UPTAKE 35 % (33-40); THYROXINE (T4) 7.6 UG/DL (4.5-12.0)
--- NOTE | 2020-12-22 17:20 | REPVR ---
PROCEDURE INFORMATION: Exam: CT Head Without Contrast Exam date and time: 12/22/2020 5:00 PM Age: 45 years old Clinical indication: Altered mental status/memory loss; Additional info: Hyponatremia AMS R/O central pontine myelinolysis TECHNIQUE: Imaging protocol: Computed tomography of the head without contrast. Radiation optimization: All CT scans at this facility use at least one of these dose optimization techniques: automated exposure control; mA and/or kV adjustment per patient size (includes targeted exams where dose is matched to clinical indication); or iterative reconstruction. COMPARISON: US Duplex,carotid (complete) 09/14/2018 12:05 PM FINDINGS: Brain: No intracranial hemorrhage or extra-axial fluid collection. No evidence of mass effect or midline shift. De La Garza-white matter differentiation is intact. Cerebral ventricles: No ventriculomegaly. Paranasal sinuses: Visualized sinuses are unremarkable. No fluid levels. Mastoid air cells: Partial opacification of left mastoid air cells and left middle ear cavity. Bones/joints: No acute osseus lesion or fracture. Soft tissues: Unremarkable. IMPRESSION: 1. No acute intracranial pathology. 2. Partial opacification of left mastoid air cells and left middle ear cavity. Correlate clinically for signs/symptoms of otomastoiditis. Electronically signed by: Onel Gould On 12/22/2020 17:20:27 PM
--- NOTE | 2020-12-22 17:30 | REP ---
INDICATION: ascities COMPARISON: 12/03/2020 TECHNIQUE: Axial noncontrast images from the lung bases to the pubic symphysis with coronal and sagittal reformations. This CT examination was performed using the following dose reduction techniques: Automated exposure control, adjustment of mA and/or kv according to the patient's size, and use of iterative reconstruction technique. FINDINGS: Significant amount of ascites is appreciated along with hepatomegaly and hepatosteatosis. Underlying hepatocellular disease cannot definitively be excluded. Few scattered alejandro hepatis and right upper quadrant lymph nodes are noted along with recanalized umbilical vein again likely related to underlying hepatocellular disease and or cirrhosis. Spleen, pancreas, gallbladder, bilateral adrenal glands and kidneys are relatively normal for noncontrast evaluation and essentially stable. Evaluation of the enteric system is somewhat limited although there is no evidence for obstruction or obvious acute inflammatory process and no free air to suggest perforation. Pelvis demonstrates normal bladder and age-appropriate prostate/seminal vesicles. Atherosclerotic changes to the aorta and vasculature noted without aneurysm. Musculoskeletal structures intact and without acute osseous abnormality. IMPRESSION: 1. Significant ascites along with findings suggesting underlying hepatocellular disease and/or hepatosteatosis. <Electronically signed by Alexi Kendrick > 12/22/20 [id number]
--- NOTE | 2020-12-22 17:57 | REPVR ---
PROCEDURE INFORMATION: Exam: CT Chest Without Contrast; Diagnostic Exam date and time: 12/22/2020 5:00 PM Age: 45 years old Clinical indication: Shortness of breath; Additional info: Hyponatremia TECHNIQUE: Imaging protocol: Diagnostic computed tomography of the chest without contrast. 3D rendering (Not supervised by radiologist): MIP and/or 3D reconstructed images were created by the technologist. Radiation optimization: All CT scans at this facility use at least one of these dose optimization techniques: automated exposure control; mA and/or kV adjustment per patient size (includes targeted exams where dose is matched to clinical indication); or iterative reconstruction. COMPARISON: CR PORTABLE CHEST X-RAY 12/22/2020 3:09 PM FINDINGS: Lungs: No focal airspace consolidation. Noncalcified 8 mm nodule anterior left lung base, image 57. Thin walled 11 mm cavitary lesion, posterior right lung apex. Pleural spaces: No pleural effusion or pneumothorax. Heart: No overt cardiac enlargement or abnormal volume of pericardial fluid. Pulmonary arteries: Pulmonary vascular/interstitial pattern does not suggest active pulmonary edema. Aorta: Thoracic aorta shows atherosclerotic change. No focal aneurysm. Other arteries: Atherosclerotic calcifications in the coronary vessels. Lymph nodes: No enlarged mediastinal lymph nodes. Liver: Large volume abdominal free fluid suggest ascites with hepatomegaly and hepatic steatosis. Probable cirrhosis. Bones/joints: Bony structures show no acute fracture or destructive process. Soft tissues: Changes of gynecomastia are present. Other findings: Filled with limited evaluation without IV contrast. Exam is limited due to patient motion. Diffuse body wall edema is present. IMPRESSION: 1. No acute thoracic abnormality. 2. Noncalcified anterior left lung base nodule measuring 8 mm, and thin-walled cavitary right apical lung lesion measuring 11 mm. Fleischner society recommendations for followup and management of nodules smaller than 8 mm detected incidentally on screening CT: 6-8 mm nodule: Low-risk patients- initial followup CT in 6-12 months and then 18-24 months if no change. High risk patients- initial followup CT in 3-6 months and then at 9-12 and 24 months if no change. >8 mm: Low-risk patients- followup CTs at around 3, 9, and 24 months versus dynamic contrast-enhanced CT, PET, and/or biopsy. High-risk patients- same as for low-risk patients. 3. Hepatomegaly, hepatic steatosis and large volume ascites Electronically signed by: Levy Handy On 12/22/2020 17:57:13 PM
[2020-12-22] MEDS ORDERED: DEXTROSE 50% 50 ML SYRINGE IV PRN (18:45)
[2020-12-22] MEDS ORDERED: GLUCOSE 4GM CHEW TABLET PO PRN (18:45)
[2020-12-22] MEDS ORDERED: GLUCAGON INJ 1MG VIAL SC PRN (18:45)
--- NOTE | 2020-12-22 18:45 | HPEPDOC ---
[facility] Medical History & Physical Date of Admission Dec 22, 2020 Date of Service: Dec 22, 2020 History and Physical CHIEF COMPLAINT: "I feel swollen." HISTORY OF PRESENT ILLNESS: 45-year-old male presents emergency room with 6-month history of increasing anasarca weight gain of 20 pounds since December 03, 2020 difficulty concentrating slight confusion and lethargy with increasing abdominal distention lower extremity edema and shortness of breath with dyspnea on exertion after walking about 15 to 20 feet. Patient complains of abdominal fullness decrease in appetite for the past 4 days some nausea without overt vomiting. He denies any hematemesis coffee-ground emesis bright red blood per rectum melena black tarry stools fever chills at home. Patient denies any chest pain pressure tightness lightheadedness or dizziness. He has not been on fluid restriction and his primary care has been giving him increasing doses of diuretics with no significant improvement. He otherwise denies any paroxysmal nocturnal dyspnea orthopnea but has been using 2-3 pillows to sleep at night. Patient does not apply to a fluid or salt restriction at baseline. In the emergency room patient was found to be in anasarca with sodium level 108. Hospitalist was called to admit the patient for symptomatic hyponatremia and anasarca most likely secondary to decompensated liver cirrhosis with history of alcohol abuse. PAST MEDICAL HISTORY: Diabetes hypertension chronic low back pain hyperlipidemia coronary artery disease 50 to 69% right internal carotid artery stenosis 16 to 49% right and left common carotid obstructive sleep apnea on CPAP tobacco abuse gastroesophageal reflux disease nonalcoholic steatohepatitis on liver ultrasound January 2018 lumbar disc disease internal hemorrhoids PAST SURGICAL HISTORY: Urethral meatal dilation cystoscopy DVIU colonoscopy endoscopy 2018 Dr. Berumen SOCIAL HISTORY: Smokes 1-1/2 packs of cigarettes a day since age of 19 has 2 sixpacks of beer on the weekends even more when he is hanging out with his buddies he is currently unemployed usually works for [employer] denies recreational drug use FAMILY HISTORY: Father alive diabetes CAD with CABG renal CA mother alive age 72 ALLERGIES: Please see below. REVIEW OF SYSTEMS: 10 point review of systems negative aside from positive findings in HPI HOME MEDICATIONS: Please see below. PHYSICAL EXAMINATION: VITAL SIGNS: See below GENERAL APPEARANCE: Slight icterus without overt jaundice no pallor or cyanosis respiratory distress Speaks in full sentences without conversational dyspnea HEENT: Head of bed at 45 degrees no JVD dry mucous membranes no stridor CARDIOVASCULAR: S1-S2 regular rate rhythm no S3 nondisplaced point of maximal impulse LUNGS: Diminished bilaterally no adventitious breath sounds clear to auscultation ABDOMEN: Distended obese positive fluid wave no rebound guarding tenderness without abdominal bruit EXTRE MITIES: 3+ pitting edema to the sacrum Neurologic: Awake alert oriented to person place and time able to provide history no expressive or receptive aphasia face is symmetric tongue is midline motor function is 5 out of 5 x 4 quadrants LABORATORY DATA: See below. IMAGING: See below MICROBIOLOGY: Please see below. ASSESSMENT: 45-year-old male with history of alcohol abuse and tobacco abuse presents emergency room with complaints of worsening anasarca for the past 6 months worse in the past 4 days with nausea vomiting abdominal discomfort distention and decreased ability to concentrate slight confusion found to have a sodium level of 108 with portal hypertension and anasarca. Patient will be admitted as an inpatient for 2 midnights for the following acute issues. Symptomatic hyponatremia -sodium level of 108 at 3 PM on 12/14/2020. -Patient is clinically volume overloaded and will be diuresed with IV Lasix given as an intravenous drip due to hypotension. - In order to support the patient's blood pressure we will start him on midodrine 10 mg 3 times daily as well as albumin transfusions. - Goal change in sodium level will be 10 to maximum of 12 milliequivalents for the next 24 hours until 3 PM tomorrow -with goal of 118 -120 mEq of sodium -patient will be admitted to the intensive care unit with every 6 hourly basic metabolic panel. -Seizure precautions. -Avoid overcorrection due to risk of central pontine myelinolysis. Acute metabolic encephalopathy -Decreased concentrating ability due to symptomatic hyponatremia with sodium level of 108 -Reviewed CT of the head ammonia level and arterial blood gas Anasarca -History of nonalcoholic steatohepatitis with diffuse fatty liver on ultrasound January 2018 status post EGD colonoscopy by Dr. Berumen -Once patient sodium is stable send for paracentesis for diagnostic purposes Nonalcoholic steatohepatitis/diffuse fatty liver with portal hypertension -N.p.o. after midnight -Liver ultrasound with Doppler rule out portal vein thrombosis Type 2 diabetes -Fingersticks q. ACH S consistent carbohydrate diet sliding scale with coverage per [facility] protocol hypoglycemic protocol Hyperlipidemia -Check lipid profile in the morning Abnormal TSH -Rule out hypothyroidism check thyroid profile Carotid artery stenosis -Outpatient follow-up Hypertension -Currently systolic pressure runs 100 mmHg and will most likely decrease once Lasix IV drip is started -Hold antihypertensive medications for now Chronic low back pain -Avoid narcotics and sedatives Obstructive sleep apnea -Resume CPAP at home settings Obesity BMI 45.7 -Complicating care Nicotine dependence tobacco abuse -Check CT chest rule out malignancy as cause of possible SIADH hyponatremia Cessation counseling has been provided Nicotine replacement therapy CODE STATUS full code Vital Signs Vital Signs Date Time Temp Pulse Resp B/P (MAP) Pulse Ox O2 Delivery O2 Flow Rate FiO2 12/22/20 17:15 76 18 108/53 (71) 97 Room Air 12/22/20 11:31 97.8 Laboratory Data Labs 24H Laboratory Tests 2 12/22/20 15:03: Immature Granulocyte % (Auto) 0.6, Neutrophils (%) (Auto) 80.5H, Lymphocytes (%) (Auto) 8.7L, Monocytes (%) (Auto) 9.8H, Eosinophils (%) (Auto) 0.3, Basophils (%) (Auto) 0.1, Neutrophils # (Auto) 9.3H, Lymphocytes # (Auto) 1.0L, Monocytes # (Auto) 1.1H, Eosinophils # (Auto) 0.0, Basophils # (Auto) 0.0, Nucleated Red Blood Cells % (auto) 0.0, Blood Gas Bicarbonate Standard 25.1, Venous Blood pH 7.352, Venous Blood Partial Pressure CO2 51.2H, Venous Blood Partial Pressure O2 36.2, Venous Blood Total Carbon Dioxide 29.3H, Venous Blood HCO3 27.8H, Venous Blood Oxygen Saturation 61.3, Venous Blood Base Excess 1.5, Anion Gap 7L, Glomerular Filtration Rate > 60.0, Osmolality 227L, Uric Acid 7.0, Calcium Level 8.5, Total Bilirubin 1.9H, Direct Bilirubin 1.4H, Aspartate Amino Transf (AST/SGOT) 124H, Alanine Aminotransferase (ALT/SGPT) 38, Alkaline Phosphatase 199H, Total Creatine Kinase 566H, Creatine Kinase MB 14.1H, Creatine Kinase MB Relative Index 2.49, Troponin I < 0.02, OH-Mwu-B-Type Natriuretic Peptide 198H, Total Protein 7.2, Albumin 2.1L, Albumin/Globulin Ratio 0.4, Thyroid Stimulating Hormone (TSH) 6.050H, Free Thyroxine Index 2.7, Thyroxine (T4) 7.6, Triiodothyronine (T3) Uptake 35, Ethyl Alcohol Level < 0.003 12/22/20 16:05: Ammonia 43H 12/22/20 16:45: Urine Osmolality 293 CBC/BMP Laboratory Tests 12/22/20 15:03 Microbiology Microbiology 12/22/20 Respiratory Virus Panel (PCR) ([facility]) - Final, Complete Home Medications Scheduled Amlodipine Besylate (Amlodipine Besylate) 5 Mg Tablet, 5 MG PO DAILY Aspirin (Aspirin EC) 81 Mg Tablet.dr, 81 MG PO DAILY Atorvastatin Calcium (Atorvastatin Calcium) 80 Mg Tablet, 80 MG PO QHS Finasteride (Finasteride) 5 Mg Tablet, 5 MG PO DAILY Furosemide (Furosemide) 40 Mg Tablet, 40 MG PO DAILY Lisinopril/Hydrochlorothiazide (Lisinopril-Hctz 20-12.5 mg Tab) 1 Each Tablet, 2 TAB PO DAILY Metformin HCl (Metformin HCl) 850 Mg Tablet, 850 MG PO BID Morphine Sulfate (Morphine Sulfate ER) 15 Mg Tablet.er, 15 MG PO DAILY Omeprazole (Omeprazole) 20 Mg Capsule.dr, 20 MG PO DAILY Scheduled PRN Fluticasone Propionate (Flonase Allergy Relief) 9.9 Ml [place].susp, 2 SPRAYS NARES DAILY PRN for CONGESTION Hydrocodone/Acetaminophen (Hydrocodone-Acetamin 7.5-325) 1 Each Tablet, 1 TAB PO Q6HP PRN for PAIN Allergies Coded Allergies: No Known Allergies (Unverified , 02/15/19) A-FIB/CHADSVASC A-FIB History Current/History of A-Fib/PAF?: No Current PO Anticoag Therapy: No Age/Risk Factor Scoring CHADSVASC: CHADSVASC Response (Comments) Value Age Risk Factor Age < 65 years old 0 Gender Risk Factor Male 0 Hx of CHF No 0 Hx of HTN Yes 1 Hx of Stroke/TIA/or VTE No 0 Hx of Diabetes Yes 1 Hx of Vascular Disease Yes 1 Total 3 Treatment Treatment ordered: NONE MACK SHEETS MD Dec 22, 2020 18:45
[2020-12-22] MEDS ORDERED: VITMTA PO (18:58)
[2020-12-22] MEDS ORDERED: TAMS1CAP17 PO (18:58)
[2020-12-22] MEDS ORDERED: VITA200016 PO (18:58)
[2020-12-22] MEDS ORDERED: HOME MED LIST COMPLETE! XX SCH (19:00)
[2020-12-22] MEDS ORDERED: ENOXAPARIN 40MG/0.4ML SYRINGE (J1650 PER 10MG) SC ONE (19:05)
[2020-12-22 19:43] LABS: BLOOD UREA NITROGEN 14 MG/DL (7-18); CALCIUM LEVEL 8.7 MG/DL (8.5-10.1); CARBON DIOXIDE LEVEL 27 MEQ/L (21-32); CHLORIDE LEVEL 76 MEQ/L (98-107); CREATININE FOR GFR 1.34 MG/DL (0.70-1.30); GLOMERULAR FILTRATION RATE > 60.0 (>60); GLUCOSE, FASTING 94 MG/DL (70-100); POTASSIUM SERUM 5.2 MEQ/L (3.5-5.1); SODIUM LEVEL 111 MEQ/L (136-145)
[2020-12-22] MEDS ORDERED: FUROSEMIDE injection 250 MG in D5W 225 ML IV SCH (20:00)
[2020-12-22] MEDS: FUROSEMIDE injection 250 MG in D5W 225 ML IV SCH (20:00)
[2020-12-22] MEDS: HumaLOG INSULIN (NovoLOG) PER UNIT SC SCH (20:29)
[2020-12-22] MEDS: LACTULOSE 20 GM/30 ML SYRUP UD PO SCH (20:29)
[2020-12-23] VITALS (29 sets, daily range): BP systolic 90–127; BP diastolic 52–66; PULSE 79
[2020-12-23 00:46] LABS: CALCIUM LEVEL 8.6 MG/DL (8.5-10.1); CREATININE FOR GFR 1.37 MG/DL (0.70-1.30); GLOMERULAR FILTRATION RATE 59.3 (>60); POTASSIUM SERUM 4.9 MEQ/L (3.5-5.1)
--- NOTE | 2020-12-23 02:34 | REPVR ---
PROCEDURE INFORMATION: Exam: XR Chest Exam date and time: 12/23/2020 2:02 AM Age: 45 years old Clinical indication: Pain; Left-sided; Additional info: L sided cp TECHNIQUE: Imaging protocol: XR of the chest. Views: 1 view. COMPARISON: CT Chest without contrast 12/22/2020 4:50 PM FINDINGS: Lungs: Degree of lung inflation is normal. No evidence of pulmonary edema. No focal consolidation or parenchymal lung mass. Pleural spaces: No pleural effusion or pneumothorax. Heart/Mediastinum: Cardiac silhouette appears normal. No adenopathy or hilar mass. Bones/joints: Osseous structures show no concerning abnormality. IMPRESSION: No acute or focal cardiopulmonary process. Electronically signed by: Levy Handy On 12/23/2020 02:33:56 AM
[2020-12-23] MEDS: FUROSEMIDE injection 250 MG in D5W 225 ML IV SCH ×2 (04:12→21:11)
[2020-12-23 06:04] LABS: ALBUMIN 1.9 GM/DL (3.2-5.2); ALT/SGPT 33 U/L (12-78); BILIRUBIN,DIRECT 1.2 MG/DL (0.0-0.2); BILIRUBIN,TOTAL 1.6 MG/DL (0.2-1.0); BLOOD UREA NITROGEN 16 MG/DL (7-18); CALCIUM LEVEL 8.3 MG/DL (8.5-10.1); CARBON DIOXIDE LEVEL 26 MEQ/L (21-32); CHLORIDE LEVEL 76 MEQ/L (98-107); CHOLESTEROL LEVEL 106 MG/DL (<200); CHOLESTEROL RISK RATIO 4.416 (<5); CREATININE FOR GFR 1.32 MG/DL (0.70-1.30); GLOMERULAR FILTRATION RATE > 60.0 (>60); GLUCOSE, FASTING 87 MG/DL (70-100); HDL CHOLESTEROL 24 MG/DL (>40); LDL CHOLESTEROL 64 MG/DL (<100); NON-HDL-C 82 MG/DL; POTASSIUM SERUM 5.2 MEQ/L (3.5-5.1); SODIUM LEVEL 111 MEQ/L (136-145); TOTAL PROTEIN 6.4 GM/DL (6.4-8.2); TRIGLYCERIDES LEVEL 92 MG/DL (<150)
[2020-12-23 06:59] LABS: HEMOGLOBIN A1c 6.3 %
--- NOTE | 2020-12-23 07:26 | IPNPDOC ---
Date Seen The patient was seen on 12/23/20. Progress Note SUBJECTIVE: despite iv lasix, <1l output w anasarca. no c/o sob, but c/o epigastric / atypical chest pain 6/10 w/o n/v/diaphoresis. tele: sinus. c/o abd fullness, thirst. us liver w doppler today still npo. no hematemesis coffee ground emesis OBJECTIVE: PHYSICAL EXAMINATION: VITAL SIGNS: See below GENERAL APPEARANCE: irritable disheveled Slight icterus without overt jaundice no pallor or cyanosis respiratory distress Speaks in full sentences without conversational dyspnea HEENT: Head of bed at 45 degrees no JVD dry mucous membranes chapped lips poor dentition. no stridor CARDIOVASCULAR: S1-S2 regular rate rhythm no S3 nondisplaced point of maximal impulse LUNGS: Diminished bilaterally no adventitious breath sounds clear to auscultation ABDOMEN: Distended tense obese positive fluid wave no rebound guarding tenderness without abdominal bruit EXTRE MITIES: 3+ pitting edema to the sacrum Neurologic: Awake alert oriented to person place and time able to provide history no expressive or receptive aphasia face is symmetric tongue is midline motor function is 5 out of 5 x 4 quadrants LABORATORY DATA: See below. IMAGING: See below MICROBIOLOGY: Please see below. ASSESSMENT: 45-year-old male with history of alcohol abuse and tobacco abuse presents emergency room with complaints of worsening anasarca for the past 6 months worse in the past 4 days with nausea vomiting abdominal discomfort distention and decreased ability to concentrate slight confusion found to have a sodium level of 108 with portal hypertension and anasarca. Patient will be admitted as an inpatient for 2 midnights for the following acute issues. Symptomatic hyponatremia -sodium level of 108 at 3 PM on 12/14/2020. -Patient is clinically volume overloaded but despte IV Lasix gtt , pt has had minimal urine output w concentrated urine <1liter overnight. -dced iv lasix gtt due to acute kidney injury -nephrology consulted to help manage diuresis and fluid balance in light of new rocio in the setting of decompensated liver cirrhosis w ascites - In order to support the patient's blood pressure, started pt on midodrine 10 mg 3 times daily as well as albumin transfusions. - Goal change in sodium level will be 10 to maximum of 12 milliequivalents for the next 24 hours until 3 PM 12/23/20 -with goal of 118 -120 mEq of sodium -Seizure precautions. -Avoid overcorrection due to risk of central pontine myelinolysis. Acute metabolic encephalopathy -Decreased concentrating ability due to symptomatic hyponatremia with sodium level of 108 and elevated ammonia level -Reviewed CT of the head ammonia level and arterial blood gas Acute decompensated liver cirrhosis with Anasarca -History of nonalcoholic steatohepatitis with diffuse fatty liver on ultrasound January 2018 status post EGD colonoscopy by Dr. Berumen -Once patient sodium is stable send for paracentesis for diagnostic purposes Nonalcoholic steatohepatitis/diffuse fatty liver with portal hypertension -N.p.o. after midnight -Liver ultrasound with Doppler rule out portal vein thrombosis Atypical Chest pain -cardiovascular risk factors: male, tobacco abuse, HTN, DM -cycle card pedersne -most likely gastritis or PUD -trial of ppi Type 2 diabetes -Fingersticks q. ACH S consistent carbohydrate diet sliding scale with coverage per [facility] protocol hypoglycemic protocol Hyperlipidemia -Check lipid profile in the morning Abnormal TSH -reviewed thyroid proflle. recheck as outpt Carotid artery stenosis -Outpatient follow-up Hypertension -Currently systolic pressure runs 100 mmHg -Hold antihypertensive medications for now Chronic low back pain -Avoid narcotics and sedatives Obstructive sleep apnea -Resume CPAP at home settings Obesity BMI 45.7 -Complicating care Nicotine dependence tobacco abuse -CT chest reviewed Cessation counseling has been provided Nicotine replacement therapy CODE STATUS full code VS, I&O, 24H, Fishbone Vital Signs/I&O Vital Signs Date Time Temp Pulse Resp B/P (MAP) Pulse Ox O2 Delivery O2 Flow Rate FiO2 12/23/20 06:30 79 115/56 (75) 96 12/23/20 06:00 16 Nasal Cannula 2.0 12/23/20 04:00 98.5 I&O- Last 24 Hours up to 6 AM 12/23/20 06:00 Intake Total 225.0 ml Output Total 745 ml Balance -520.0 ml Laboratory Data 24H LABS Laboratory Tests 2 12/22/20 15:03: Immature Granulocyte % (Auto) 0.6, Neutrophils (%) (Auto) 80.5H, Lymphocytes (%) (Auto) 8.7L, Monocytes (%) (Auto) 9.8H, Eosinophils (%) (Auto) 0.3, Basophils (%) (Auto) 0.1, Neutrophils # (Auto) 9.3H, Lymphocytes # (Auto) 1.0L, Monocytes # (Auto) 1.1H, Eosinophils # (Auto) 0.0, Basophils # (Auto) 0.0, Nucleated Red Blood Cells % (auto) 0.0, Blood Gas Bicarbonate Standard 25.1, Venous Blood pH 7.352, Venous Blood Partial Pressure CO2 51.2H, Venous Blood Partial Pressure O2 36.2, Venous Blood Total Carbon Dioxide 29.3H, Venous Blood HCO3 27.8H, Venous Blood Oxygen Saturation 61.3, Venous Blood Base Excess 1.5, Anion Gap 7L, Glomerular Filtration Rate > 60.0, Osmolality 227L, Uric Acid 7.0, Calcium Level 8.5, Total Bilirubin 1.9H, Direct Bilirubin 1.4H, Aspartate Amino Transf (AST/SGOT) 124H, Alanine Aminotransferase (ALT/SGPT) 38, Alkaline Phosphatase 199H, Total Creatine Kinase 566H, Creatine Kinase MB 14.1H, Creatine Kinase MB Relative Index 2.49, Troponin I < 0.02, IA-Wwa-L-Type Natriuretic Peptide 198H, Total Protein 7.2, Albumin 2.1L, Albumin/Globulin Ratio 0.4, Thyroid Stimulating Hormone (TSH) 6.050H, Free Thyroxine Index 2.7, Thyroxine (T4) 7.6, Triiodothyronine (T3) Uptake 35, Ethyl Alcohol Level < 0.003 12/22/20 16:05: Ammonia 43H 12/22/20 16:45: Urine Osmolality 293, Urine Random Sodium < 10 12/22/20 18:54: Anion Gap 8, Glomerular Filtration Rate > 60.0, Calcium Level 8.7 12/22/20 20:10: Bedside Glucose (Misc Panel) 106H 12/23/20 00:08: Anion Gap 7L, Glomerular Filtration Rate 59.3L, Calcium Level 8.6 12/23/20 01:54: Troponin I < 0.02 12/23/20 04:50: Anion Gap 9, Glomerular Filtration Rate > 60.0, Calcium Level 8.3L, Estimated Mean Plasma Glucose 134H, Hemoglobin A1c 6.3, Total Bilirubin 1.6H, Direct Bilirubin 1.2H, Aspartate Amino Transf (AST/SGOT) 100H, Alanine Aminotransferase (ALT/SGPT) 33, Alkaline Phosphatase 179H, Ammonia 69H, Total Protein 6.4, Albumin 1.9L, Albumin/Globulin Ratio 0.4, Triglycerides Level 92, Total Cholesterol 106, LDL Cholesterol 64, Non-HDL Cholesterol (LDL + VLDL) 82, Total HDL Cholesterol 24L, Cholesterol/HDL Ratio 4.416 CBC/BMP Laboratory Tests 12/22/20 15:03 12/22/20 18:54 12/23/20 00:08 12/23/20 04:50 Microbiology Microbiology 12/22/20 Respiratory Virus Panel (PCR) ([facility] [place]) - Final, Complete MACK SHEETS MD Dec 23, 2020 07:26
[2020-12-23] MEDS ORDERED: SOD POLYSTYRENE SULFONATE SUSP 15 GM/60 ML UD PO ONE (07:30)
[2020-12-23] MEDS ORDERED: CALCIUM GLUCONATE 1,000 MG in D5W MINI-BAG PLUS 100 ML IV ONE (07:30)
[2020-12-23] MEDS: HumaLOG INSULIN (NovoLOG) PER UNIT SC SCH ×4 (07:30→21:00)
[2020-12-23] MEDS: SUCRALFATE 1 GM TAB PO SCH ×4 (07:30→21:09)
[2020-12-23] MEDS ORDERED: FUROSEMIDE 40MG/4ML VIAL (J1940) IV ONE (07:45)
[2020-12-23] MEDS ORDERED: LIDOCAINE 1% MDV 20ML VIAL As Ordered ONE (07:47)
[2020-12-23] MEDS: ENOXAPARIN 40MG/0.4ML SYRINGE (J1650 PER 10MG) SC SCH (09:00)
[2020-12-23] MEDS: PANTOPRAZOLE 40MG VIAL (C9113 PER 1) IV SCH ×2 (09:08→21:09)
[2020-12-23] MEDS: LACTULOSE 20 GM/30 ML SYRUP UD PO SCH ×4 (09:09→21:09)
[2020-12-23] MEDS: MIDODRINE 5 MG TAB PO SCH ×3 (09:10→18:04)
[2020-12-23] MEDS: THIAMINE 100 MG TAB PO SCH (09:10)
[2020-12-23] MEDS: MULTIVITAMINS/MINERALS THERAP 1 TAB PO SCH (09:10)
[2020-12-23] MEDS: FOLIC ACID 1 MG TAB PO SCH (09:10)
[2020-12-23] MEDS: NICOTINE 21MG/24HR 1 EA TRANSDERMAL TD SCH (09:13)
--- NOTE | 2020-12-23 09:18 | ECGEPIP ---
[facility] Test Date: 2020-12-23 Pat Name: ROLAND CARRILLO Department: Room: [place] [address] Gender: Male Fryer Operator: ICU : 1975 Requested By: MARGA BROWN Order Number: [id number] Reading MD: Henrique Lake Measurements Intervals [place]man Rate: 84 P: 58 MN: 204 QRS: 71 QRSD: 88 T: 35 QT: 394 QTc: 465 Interpretive Statements Normal sinus rhythm Low Precordial voltages. No significant change compared with 12/14/2020. Electronically Signed on 12-23-2020 9:18:14 EDT by Henrique Lake
[2020-12-23 09:20] LABS: INR 1.43; PROTHROMBIN TIME 17.9 SECONDS (12.7-14.5)
[2020-12-23 12:20] LABS: BLOOD UREA NITROGEN 18 MG/DL (7-18); CALCIUM LEVEL 8.7 MG/DL (8.5-10.1); CARBON DIOXIDE LEVEL 26 MEQ/L (21-32); CHLORIDE LEVEL 75 MEQ/L (98-107); CREATININE FOR GFR 1.31 MG/DL (0.70-1.30); GLOMERULAR FILTRATION RATE > 60.0 (>60); GLUCOSE, FASTING 102 MG/DL (70-100); POTASSIUM SERUM 4.5 MEQ/L (3.5-5.1); SODIUM LEVEL 111 MEQ/L (136-145)
[2020-12-23] MEDS: OCTREOTIDE ACETATE 100MCG/ML VIAL (J2354 PER 25MCG) SC SCH ×2 (12:49→21:10)
[2020-12-23] MEDS ORDERED: TOLVAPTAN 7.5 MG HALF-TAB PO ONE (16:00)
--- NOTE | 2020-12-23 16:11 | REP ---
INDICATION: LE EDEMA R/O DVT. COMPARISON: None. TECHNIQUE: Multiple ultrasonographic images of the deep venous structures of the bilateral lower extremity were obtained from the inguinal ligament to the ankle. Venous compression techniques, color doppler imaging, and augmentation techniques were also obtained where appropriate. As per the ACR guidelines the anterior tibial vein can not be effectively evaluated. Only compression techniques in the calf on the peroneal and posterior tibial veins was attempted/performed. FINDINGS: There is no abnormal echogenic material seen within any of the visualized deep venous structures that would suggest acute thrombosis. Coaptation is unremarkable throughout. Doppler interrogation shows an expected response to respiratory variability and augmentation in the thigh. Compression techniques in the calf showed no abnormality. The color flow images show what appears to be a normal vascular pattern throughout the thigh. IMPRESSION: There is no ultrasonographic evidence of deep venous thrombosis involving any of the visualized deep venous structures of the bilateral lower extremity as described above. <Electronically signed by Nitin Martinez > 12/23/20 [id number]
--- NOTE | 2020-12-23 16:43 | REP ---
INDICATION: ASCITES. COMPARISON: None. TECHNIQUE: The procedure was performed under the direct supervision of Dr. Tiwari. The risks and benefits of the procedure were explained to the patient and informed consent was obtained. The largest pocket of fluid was localized in the left flank using ultrasound guidance. The skin was prepped and draped in a sterile fashion. 5 mL of 1% lidocaine was used as a local anesthetic. An 8-Italian multi side-hole catheter was inserted using trocar technique.6850 mL of yellow fluid was withdrawn with a sample sent to the lab for analysis. Estimated blood loss: Less than 1 mL The patient tolerated the procedure well and there were no immediate complications. After the appropriate amount of monitored convalescence, the patient was discharged from the department. FINDINGS: None IMPRESSION: Ultrasound-guided paracentesis [id number] mL of yellow fluid. <Electronically signed by Manoj Alvarenga > 12/23/20 [id number] <Electronically signed by Misbah Tiwari > 12/23/20 [id number]
[2020-12-23 17:26] LABS: SPEC. GRAVITY BODY FLUIDS 1.015 (NOT ESTABLISHED)
[2020-12-23 17:31] LABS: SOURCE, BODY FLUID ASCITES
[2020-12-23 17:32] LABS: APPEARANCE, BODY FLUID CLEAR (CLEAR); ASCITES FL COLOR YELLOW (COLORLESS)
[2020-12-23 18:07] LABS: SOURCE, BODY FLUID ALBUMIN ASCITES; SOURCE, BODY FLUID GLUCOSE ASCITES; SOURCE, BODY FLUID TOT PROTEIN ASCITES; TOTAL PROTEIN, BODY FLUID 2.2 G/DL (NOT ESTABLISHED)
--- NOTE | 2020-12-23 19:16 | REPVR ---
PROCEDURE INFORMATION: Exam: US Abdomen Complete Exam date and time: 12/23/2020 6:26 PM Age: 45 years old Clinical indication: Condition or disease; Other: Portal HTN, arf; Prior surgery; Surgery date: Post-operative (0-2 days); Surgery type: Paracentesis performed before liver doppler; Additional info: Acute renal failure and eval liver/spleen and circulation. Also R/O pv thrombosis, eval pv HTN TECHNIQUE: Imaging protocol: Real-time ultrasound of the abdomen with image documentation. COMPARISON: CT ABD PELVIS W/O CONTRAST 12/22/2020 3:45 PM FINDINGS: Liver: There is a diffuse decrease in hepatic parenchymal density, consistent with steatosis and or cirrhotic morphology. Unremarkable appearance of the hepatic arteries. Gallbladder: Normal. No gallstones. There is no gallbladder wall thickening. Common bile duct: The common bile duct measures 3 mm. No mass or choledocholithiasis. Pancreas: Visualized pancreas is unremarkable. Right kidney: Right kidney measures 12.6 x 5.2 x 5.9 cm. Normal. No mass. No hydronephrosis. Left kidney: Left kidney measures 13.6 x 7.6 x 6.2 cm. Normal. No mass. No hydronephrosis. Spleen: Normal. No splenomegaly. Aorta: Normal. No aneurysm. Inferior vena cava: Normal. Portal venous: No evidence of portal vein thrombosis. Mildly increased phasicity demonstrated in the portal waveforms with normal velocities demonstrated. Unremarkable appearance of the splenic vein. Intraperitoneal space: Moderate ascites demonstrated. Other vasculature: Proximal superior mesenteric vein appears unremarkable. IMPRESSION: 1. There is a diffuse decrease in hepatic parenchymal density, consistent with steatosis and or cirrhotic morphology. 2. Moderate ascites demonstrated. 3. No evidence of portal vein thrombosis. Normal velocities in the main, right and left portal veins. Electronically signed by: Josh Tejeda On 12/23/2020 19:16:03 PM
[2020-12-23 19:31] LABS: BLOOD UREA NITROGEN 17 MG/DL (7-18); CARBON DIOXIDE LEVEL 28 MEQ/L (21-32); CHLORIDE LEVEL 76 MEQ/L (98-107); CREATININE FOR GFR 1.09 MG/DL (0.70-1.30); GLOMERULAR FILTRATION RATE > 60.0 (>60); GLUCOSE, FASTING 101 MG/DL (70-100); MAGNESIUM LEVEL 1.3 MG/DL (1.8-2.4); POTASSIUM SERUM 4.7 MEQ/L (3.5-5.1); SODIUM LEVEL 114 MEQ/L (136-145)
[2020-12-23] MEDS ORDERED: ACETAMINOPHEN TAB 650MG DOSE (2X325MG) PO ONE (20:40)
[2020-12-23] MEDS: MAGNESIUM OXIDE 400MG TAB (MAG-OX) PO SCH (21:09)
[2020-12-24] VITALS (17 sets, daily range): BP systolic 58–126; BP diastolic 57–64
--- NOTE | 2020-12-24 | CR ---
CONSULTATION DATE: 12/23/2020 REQUESTING PHYSICIAN: Dr. Maria Del Rosario Barboza REASON FOR CONSULTATION: Severe hyponatremia in this patient with anasarca and fluid overload. HISTORY OF PRESENT ILLNESS: Mr. Gunter is previously unknown to me, he is a 45-year-old male with a past medical history of diabetes, hypertension, obesity, coronary artery disease, sleep apnea, alcohol abuse, tobacco abuse and probable cirrhosis. Patient presented to the Emergency Room with complaint of extreme swelling, fluid retention and shortness of breath with minimal exertion. Patient tells me that one year ago he weighed 90 pounds less than what he does now. He states over the past 6 to 9 months, he has noted progressively increasing fluid retention and swelling including notable distention and swelling of his groin, his abdomen and his legs. He tells me he has not recently seen any specialist for this condition, but has been following up with his primary care provider (physician transition assistant) and has been on Thiazide type of diuretic along with loop diuretic, however, there was no improvement in his fluid overload and his primary care advised him to come to the Emergency Room. I note that patient was recently in the Emergency Room on December 03 with a serum sodium of 117 at that time, however, the patient did leave against medical advice. Patient tells me he follows no fluid restriction at home, he actually drinks a significant amount of beer and does not follow any sort of dietary restrictions. In the Emergency Room, the patient was found to be in significant anasarca and sodium level was 108 and the patient was admit to the Intensive Care Unit and nephrology evaluation was requested for management of his severe hyponatremia. PAST MEDICAL HISTORY: 1. Probable decompensated liver cirrhosis secondary to alcohol abuse. 2. Diabetes. 3. Hypertension. 4. Dyslipidemia. 5. Coronary artery disease. 6. Obstructive sleep apnea. 7. Tobacco abuse. 8. GERD. 9. Internal hemorrhoids. 10.BPH. PAST SURGICAL HISTORY: 1. Urethral meatus dilation. 2. Cystoscopy. 3. Colonoscopy. 4. Endoscopy. FAMILY HISTORY: Significant for heart disease and diabetes. SOCIAL HISTORY: Smokes 1.5 packs of cigarettes a day since age 19. Reports he drinks 3 six-packs of beer on the weekend and drinks 1-2 six-packs of beer on the weekdays. No recreational drug use. ALLERGIES: No known drug allergies. HOME MEDICATIONS: Reviewed and include: 1. Amlodipine 5 mg p.o. daily. 2. Aspirin 81 mg p.o. daily. 3. Atorvastatin 80 mg p.o. q.h.s. 4. Finasteride 5 mg p.o. daily. 5. Lasix 40 mg p.o. daily. 6. Lisinopril/Hydrochlorothiazide 40 mg/25 mg. 7. Metformin 850 mg p.o. b.i.d. 8. Omeprazole 20 mg p.o. daily. 9. Hydrocodone p.r.n. REVIEW OF SYSTEMS: CONSTITUTIONAL: Denies fevers or chills. Does report fatigue. EYES: Denies visual changes or tearing. HEENT: Denies odynophagia, rhinorrhea, epistaxis. CARDIAC: Reports generalized swelling and fluid retention and history of dyslipidemia. Denies chest pain. RESPIRATORY: Reports tobacco abuse and sleep apnea and shortness of breath with minimal exertion. GASTROINTESTINAL: Reports significant abdominal distention. Patient is unaware of his liver issues. He reports GERD. GENITOURINARY: Denies dysuria or hematuria. ENDOCRINE: Reports diabetes and obesity. MUSCULOSKELETAL: Reports diffuse swelling of the extremities. He denies gout. SKIN: Denies new rashes or pruritus. HEMATOLOGIC: Denies anticoagulant use. Denies easy bleeding. NEUROLOGIC: Reports difficulty concentrating, but denies kaitlin confusion. Remainder review of systems is negative or as per HPI. PHYSICAL EXAMINATION: VITAL SIGNS: Temperature 98.2, pulse 84, respiratory rate 22, blood pressure 119/59, saturating 97% on room air. INTAKE/OUTPUT: Reviewed and shows 1 liter of urine thus far. Weight in the bed scale today is 157 kg. GENERAL: Patient is seen in the Intensive Care Unit, middle-age male, lying in bed with the head of the bed elevated. At first look most notable thing is how significantly anasarcic he is. HEENT: Extraocular muscles are intact. There is no scleral icterus. Tongue is moist. Neck is supple. Jugular veins are elevated. HEART: Heart sounds are regular, S1, S2. There is 3+ edema in the lower extremities that comes all the way up to the abdomen and is confluent with the abdomen. Has a very swollen scrotum, generalized anasarca, but upper extremities do not have much edema. RESPIRATORY: Diminished breath sounds bilaterally, but no crackles or rales. He is comfortable on room air without any accessory muscle use. ABDOMEN: Appreciate significant ascites, but there is no tense ascites. GENITOURINARY: Shows Noyola catheter. EXTREMITIES: No peripheral edema or cyanosis. NEUROLOGICAL: Patient is awake, alert and oriented x3, providing history and cooperative with physical exam and commands. SKIN: Warm and dry. No pallor. LABORATORY DATA: Sodium on December 03 was 117, sodium yesterday on admission at 3:00 p.m. was 108 and sodium this morning is 111. Potassium 5.2, bicarbonate 26, creatinine 1.3, baseline creatinine is less than 1. Magnesium 1.3. Total bilirubin 1.6. AST 100, ALT 33. BNP 198. TSH 6, T4 2.7. Ammonia 43. Hemoglobin 10.1, white count 11.5, platelets 389,000. IMAGING: CT of the abdomen and pelvis done yesterday non-contrast shows severe ascites and hepatomegaly and hepatosteatosis. Normal bladder and no acute findings for the kidneys. CT of the chest done yesterday non-contrast showed hepatomegaly, large volume ascites, no pleural effusion, no pulmonary edema. Venous duplex of the lower extremities is negative for DVT. INPATIENT MEDICATIONS: I started the patient on Octreotide 100 mcg subcutaneously every 8 hours, Lasix at 7 mg per hour. He is also on Folic Acid 1 mg p.o. daily. He also did receive 40 mg I.V. dose of Lasix earlier this morning. He is on lactulose 30 cc p.o. 4x a day, nicotine patch, Protonix 40 mg I.V. b.i.d. He received a dose of Kayexalate 30 grams p.o. x1, Carafate 1 gram p.o. with meal and at bedtime, Thiamine 100 mg p.o. daily, and I also started the patient on magnesium 400 mg p.o. b.i.d. PROBLEMS: 1. Hypervolemic hypo-osmolar hyponatremia: Patient has had progressive and worsening hyponatremia over the past one month at least, however when I look back at his prior labs, I note that he has had mild hyponatremia going back at least 3 years. His hyponatremia is most likely secondary to decompensated cirrhosis and anasarca and further worsened by use of Hydrochlorothiazide and extremely high amount of daily fluid intake (beer). Patient's sodium on this admission was 108 at 3:00 p.m. yesterday and is up to 111 this morning when I was called to help in the management of his hyponatremia. I am going to try to increase the patient's effective circulating volume with use of Midodrine, Octreotide and albumin infusion, and we will try to diurese him with Lasix infusion (7 mg an hour). I also suggest that he should have a large volume paracentesis and patient should be on a moderate oral fluid restriction at this time. I would try to bring up his sodium level by around 8 mEq in this first 24-hour period and nursing staff is to call me if he exceeds the appropriate rate of correction. We will need to keep a close eye on his renal function while we are trying to diurese the patient and optimize his volume status because he is at risk of going into hepatorenal syndrome as well. In terms of other workup of hyponatremia, I see acceptable thyroid panel. He is appropriately off of Hydrochlorothiazide and should stay off of any thiazide type of diuretic. We will get an a.m. Cortisol level. 2. Acute kidney injury: Patient's baseline creatinine appears to be less than 1. He has a mild acute kidney injury in the setting of severe fluid overload and decompensated cirrhosis with marked ascites. I am going to try to diurese the patient and we will keep a very close eye on his renal function. Measures are being taken to improve the effective circulating volume and hence the renal perfusion, which will in turn decrease the risk of worsening renal function. 3. Hypomagnesemia: Magnesium level 1.3. Magnesium supplementation is ordered. 4. Hyperkalemia: It is mild and I expect it will improve with diuresis. 5. Probable cirrhosis causing large ascites and anasarca: I note abnormal liver on imaging. The patient is also markedly hypoalbuminemic with serum albumin of less than 2. He endorses very high amount of daily alcohol intake. Further workup of the probable cirrhosis will be per primary team and patient is going to go for large volume paracentesis. He also did have elevation in ammonia level and is on lactulose. The patient himself is unaware of his liver issues that I feel have likely been going on for at least a couple of years. 6. Hypotension: Most likely related to decompensated cirrhosis. The patient is on Midodrine and blood pressures are improved. 7. Hypoalbuminemia: Again most likely secondary to cirrhosis and patient is receiving albumin infusion 25 grams every 6 hours as it will help with his effective circulating volume.
[2020-12-24 00:44] LABS: BLOOD UREA NITROGEN 15 MG/DL (7-18); CALCIUM LEVEL 8.3 MG/DL (8.5-10.1); CARBON DIOXIDE LEVEL 29 MEQ/L (21-32); CHLORIDE LEVEL 77 MEQ/L (98-107); CREATININE FOR GFR 1.03 MG/DL (0.70-1.30); GLOMERULAR FILTRATION RATE > 60.0 (>60); GLUCOSE, FASTING 106 MG/DL (70-100); POTASSIUM SERUM 4.2 MEQ/L (3.5-5.1); SODIUM LEVEL 112 MEQ/L (136-145)
[2020-12-24] MEDS: OCTREOTIDE ACETATE 100MCG/ML VIAL (J2354 PER 25MCG) SC SCH ×3 (05:09→21:11)
[2020-12-24 05:57] LABS: ALBUMIN 2.1 GM/DL (3.2-5.2); ALT/SGPT 29 U/L (12-78); BILIRUBIN,TOTAL 1.5 MG/DL (0.2-1.0); BLOOD UREA NITROGEN 15 MG/DL (7-18); CALCIUM LEVEL 8.3 MG/DL (8.5-10.1); CARBON DIOXIDE LEVEL 30 MEQ/L (21-32); CHLORIDE LEVEL 78 MEQ/L (98-107); CREATININE FOR GFR 0.94 MG/DL (0.70-1.30); GLOMERULAR FILTRATION RATE > 60.0 (>60); GLUCOSE, FASTING 104 MG/DL (70-100); POTASSIUM SERUM 4.1 MEQ/L (3.5-5.1); SODIUM LEVEL 114 MEQ/L (136-145); TOTAL PROTEIN 6.7 GM/DL (6.4-8.2)
[2020-12-24] MEDS: SODIUM CHLORIDE 0.9% INJ 10 ML SYR IV SCH ×2 (06:10→17:17)
--- NOTE | 2020-12-24 07:20 | IPNPDOC ---
Date Seen The patient was seen on 12/24/20. Progress Note UBJECTIVE: despite almost 7 liters of ascitic fluid removed, pt c/o increased abd distention and "I don't feel good." unable to provide date-says it's March,. no c/o h/a. no seizure activity. s/p albumin, on octreotide, lasix iv gtt with good urine output. no c/o sob, n/v. no withdrawal sxs. OBJECTIVE: PHYSICAL EXAMINATION: VITAL SIGNS: See below GENERAL APPEARANCE: no distress. disoriented HEENT: Head of bed at 45 degrees no JVD dry mucous membranes chapped lips poor dentition. no stridor no carotid bruits CARDIOVASCULAR: S1-S2 regular rate rhythm no S3 nondisplaced point of maximal impulse LUNGS: Diminished bilaterally no adventitious breath sounds clear to auscultation ABDOMEN: Distended tense obese tympanitic no rebound guarding tenderness without abdominal bruit EXTRE MITIES: 3+ pitting edema to the sacrum Neurologic: Awake alert oriented to person placebut disoriented to month no expressive or receptive aphasia face is symmetric tongue is midline motor function is 5 out of 5 x 4 quadrants LABORATORY DATA: See below. IMAGING: See below MICROBIOLOGY: Please see below. ASSESSMENT: 45-year-old male with history of alcohol abuse and tobacco abuse presents emergency room with complaints of worsening anasarca for the past 6 months worse in the past 4 days with nausea vomiting abdominal discomfort distention and decreased ability to concentrate slight confusion found to have a sodium level of 108 with portal hypertension and anasarca. Patient will be ad mitted as an inpatient for 2 midnights for the following acute issues. Symptomatic hyponatremia -sodium level of 108 at 3 PM on 12/14/2020. -Patient is clinically volume overloaded despite 10 liters output including almost 7liters ascites removed 12/23/20 -nephrology consulted to help manage diuresis and fluid balance -s/p samsca 12/23/20. - In order to support the patient's blood pressure, started pt on midodrine 10 mg 3 times daily as well as albumin transfusions. -Seizure precautions. Acute metabolic encephalopathy -Decreased concentrating ability due to symptomatic hyponatremia with sodium level of 108 and elevated ammonia level -Reviewed CT of the head ammonia level and arterial blood gas -slightly improving but still disoriented. -no seizure activity Acute decompensated liver cirrhosis with Anasarca -diffuse fatty liver on ultrasound January 2018 status post EGD colonoscopy by Dr. Berumen -s/p paracentesis <250 pmns no peritonitis ascitic culture pending -s/p albumin, on octreotide, midodrine, lasix iv gtt and 12/23/20 almost 7liters out via paracentesis -nephrology managing lasix iv gtt. Atypical Chest pain -cardiovascular risk factors: male, tobacco abuse, HTN, DM -negative card pedersen -most likely gastritis or PUD -trial of ppi Type 2 diabetes -Fingersticks q. ACH S consistent carbohydrate diet sliding scale with coverage per [facility] protocol hypoglycemic protocol Hyperlipidemia -chronic Abnormal TSH -reviewed thyroid proflle. recheck as outpt Carotid artery stenosis -Outpatient follow-up Hypertension -Currently systolic pressure runs 100 mmHg -Hold antihypertensive medications for now Chronic low back pain -Avoid narcotics and sedatives Obstructive sleep apnea -Resume CPAP at home settings Obesity BMI 45.7 -Complicating care Nicotine dependence tobacco abuse -CT chest reviewed Cessation counseling has been provided Nicotine replacement therapy CODE STATUS full code VS, I&O, 24H, Fishbone Vital Signs/I&O Vital Signs Date Time Temp Pulse Resp B/P (MAP) Pulse Ox O2 Delivery O2 Flow Rate FiO2 12/24/20 06:47 99.5 82 17 112/58 96 12/24/20 06:28 Room Air 12/24/20 06:07 3.0 I&O- Last 24 Hours up to 6 AM 12/24/20 06:00 Intake Total 574.4 ml Output Total 92683 ml Balance -32689.6 ml Laboratory Data 24H LABS Laboratory Tests 2 12/23/20 08:42: Prothrombin Time 17.9H, Prothromb Time International Ratio 1.43 12/23/20 11:34: Anion Gap 10, Glomerular Filtration Rate > 60.0, Calcium Level 8.7 12/23/20 11:48: Bedside Glucose (Misc Panel) 113H 12/23/20 15:37: Body Fluid Source ASCITES, Body Fluid Color YELLOW, Body Fluid Appearance CLEAR, Body Fluid Specific [place] 1.015, Body Fluid WBC (Auto) 212H, Body Fluid RBC (Auto) < 2, Body Fluid Mononuclear Cells % Auto 69.4H, Fluid Polymorphonuclear Cell % Auto 30.6H, Body Fluid Glucose Source ASCITES, Body Fluid Glucose 100, Body Fluid Protein Source ASCITES, Body Fluid Total Protein 2.2, Body Fluid Albumin Source ASCITES, Body Fluid Albumin 0.6 12/23/20 18:03: Bedside Glucose (Misc Panel) 105 12/23/20 18:17: Anion Gap 10, Glomerular Filtration Rate > 60.0, Calcium Level 9.0, Magnesium Level 1.3L, Ammonia 53H 12/23/20 21:10: Bedside Glucose (Misc Panel) 171H 12/23/20 23:51: Whole Blood Ionized Calcium 4.4L 12/24/20 00:00: Anion Gap 6L, Glomerular Filtration Rate > 60.0, Calcium Level 8.3L, Ammonia 69H 12/24/20 05:03: Anion Gap 6L, Glomerular Filtration Rate > 60.0, Calcium Level 8.3L, Ammonia 50H, Total Bilirubin 1.5H, Direct Bilirubin 1.0H, Aspartate Amino Transf (AST/SGOT) 84H, Alanine Aminotransferase (ALT/SGPT) 29, Alkaline Phosphatase 162H, Total Protein 6.7, Albumin 2.1L, Albumin/Globulin Ratio 0.5 12/24/20 05:36: CBC/BMP Laboratory Tests 12/23/20 11:34 12/23/20 18:17 12/24/20 00:00 12/24/20 05:03 Microbiology Microbiology 12/23/20 Acid Fast Stain, Received Pending 12/23/20 Mycobacterial Culture, Received Pending 12/23/20 Fungal Smear, Received Pending 12/23/20 Fungal Culture, Received Pending 12/23/20 Gram Stain, Received Pending 12/23/20 Body Fluid Culture, Received Pending 12/22/20 Respiratory Virus Panel (PCR) (MARICEL) - Final, Complete MACK SHEETS MD Dec 24, 2020 07:20
[2020-12-24] MEDS: HumaLOG INSULIN (NovoLOG) PER UNIT SC SCH ×4 (07:30→21:00)
--- NOTE | 2020-12-24 07:30 | ECGEPIP ---
[facility] - ED Test Date: 2020-12-22 Pat Name: ROLAND CARRILLO Department: Room: - Gender: Male Damage Inside Adjuster: : 1975 Requested By: Brooke Llamas Order Number: [id number] Reading MD: Brooke Llamas Measurements Intervals Desha Rate: 79 P: 40 WY: 176 QRS: 68 QRSD: 86 T: 36 QT: 406 QTc: 465 Interpretive Statements Normal sinus rhythm Low voltage QRS shorter qtc/slower rate 12/03/20 Electronically Signed on 12-24-2020 7:30:14 EDT by Brooke Llamas
[2020-12-24] MEDS: MIDODRINE 5 MG TAB PO SCH ×3 (08:13→16:37)
[2020-12-24] MEDS: SUCRALFATE 1 GM TAB PO SCH ×4 (08:13→21:10)
[2020-12-24 08:27] LABS: BASO % 0.1 % (0.0-1.0); EOS % 0.3 % (0.0-3.0); HEMATOCRIT 24.8 % (42.0-52.0); HEMOGLOBIN 8.8 g/dl (13.5-17.5); LYMPH # 0.9 10^3/uL (1.5-5.0); LYMPH % 12.1 % (24.0-44.0); MEAN CORPUSCULAR HEMOGLOBIN 30.7 pg (27.0-33.0); MEAN CORPUSCULAR HGB CONC 35.5 g/dl (32.0-36.5); MEAN CORPUSCULAR VOLUME 86.4 fl (80.0-96.0); MONO # 0.8 10^3/uL (0.0-0.8); MONO % 10.9 % (2.0-8.0); NEUTROPHILS # 5.7 10^3/uL (1.5-8.5); NEUTROPHILS % 76.2 % (36.0-66.0); PLATELET COUNT, AUTOMATED 317 10^3/uL (150-450); RED BLOOD COUNT 2.87 10^6/uL (4.30-6.10); WHITE BLOOD COUNT 7.5 10^3/uL (4.0-10.0)
[2020-12-24 08:48] LABS: C REACTIVE PROTEIN QUANTITATIV 3.41 MG/DL (0.00-0.30); MAGNESIUM LEVEL 1.2 MG/DL (1.8-2.4)
[2020-12-24] MEDS ORDERED: SODIUM CHLORIDE 3% 100 ML IV SCH ×2 (09:00→18:00)
[2020-12-24] MEDS: LACTULOSE 20 GM/30 ML SYRUP UD PO SCH ×4 (09:47→21:10)
[2020-12-24] MEDS: MULTIVITAMINS/MINERALS THERAP 1 TAB PO SCH (09:48)
[2020-12-24] MEDS: PANTOPRAZOLE 40MG VIAL (C9113 PER 1) IV SCH ×2 (09:48→21:09)
[2020-12-24] MEDS: ENOXAPARIN 40MG/0.4ML SYRINGE (J1650 PER 10MG) SC SCH (09:49)
[2020-12-24] MEDS: THIAMINE 100 MG TAB PO SCH (09:49)
[2020-12-24] MEDS: MAGNESIUM OXIDE 400MG TAB (MAG-OX) PO SCH ×2 (09:49→21:10)
[2020-12-24] MEDS: FOLIC ACID 1 MG TAB PO SCH (09:49)
[2020-12-24] MEDS: NICOTINE 21MG/24HR 1 EA TRANSDERMAL TD SCH (09:50)
[2020-12-24] MEDS ORDERED: MAG SULF 1GM/100ML (MAG RUN) 1 GM in IV 1 EA IV ONE (10:50)
[2020-12-24 15:44] LABS: BLOOD UREA NITROGEN 14 MG/DL (7-18); CALCIUM LEVEL 8.5 MG/DL (8.5-10.1); CARBON DIOXIDE LEVEL 29 MEQ/L (21-32); CHLORIDE LEVEL 79 MEQ/L (98-107); CREATININE FOR GFR 0.82 MG/DL (0.70-1.30); GLOMERULAR FILTRATION RATE > 60.0 (>60); GLUCOSE, FASTING 127 MG/DL (70-100); POTASSIUM SERUM 4.3 MEQ/L (3.5-5.1); SODIUM LEVEL 116 MEQ/L (136-145)
[2020-12-24] MEDS ORDERED: TOLVAPTAN 7.5 MG HALF-TAB PO ONE (20:50)
[2020-12-24] MEDS: FUROSEMIDE injection 250 MG in D5W 225 ML IV SCH (21:11)
[2020-12-24 22:01] LABS: BLOOD UREA NITROGEN 13 MG/DL (7-18); CALCIUM LEVEL 8.6 MG/DL (8.5-10.1); CARBON DIOXIDE LEVEL 32 MEQ/L (21-32); CHLORIDE LEVEL 79 MEQ/L (98-107); CREATININE FOR GFR 0.83 MG/DL (0.70-1.30); GLOMERULAR FILTRATION RATE > 60.0 (>60); GLUCOSE, FASTING 117 MG/DL (70-100); POTASSIUM SERUM 3.8 MEQ/L (3.5-5.1); SODIUM LEVEL 117 MEQ/L (136-145)
--- NOTE | 2020-12-24 23:04 | IPN ---
NEPHROLOGY PROGRESS NOTE DATE: 12/24/2020 SUBJECTIVE: Mr. Gunter is seen and examined this morning at the bedside. ICU nurse did call me overnight with his sodium levels. The patient was diuresed with Lasix drip yesterday but actually sodium level dropped from 114 to 112 with the Lasix drip. Subsequently he was given 100 mL of hypertonic saline and because he is in severe anasarca and fluid overload, Lasix drip was continued. Yesterday he also had a large volume paracentesis (first paracentesis for this patient) and almost 7 liters of fluid were removed, however he notes ongoing severe distention. And he reports abdominal tenderness as well. The patient was oriented at the time of my visit, was able to tell me the month, the date, the year and identify the president. OBJECTIVE: PHYSICAL EXAMINATION: VITAL SIGNS: Temperature 99.5, pulse 82, respiratory rate 17, blood pressure 112/58, saturating 96% on room air. INTAKE AND OUTPUT: Intake yesterday was 500 and paracentesis removed 6.8 liters. Urine output was 3.8 liters. Weight in the bed scale today is actually up as compared to yesterday and 160 kg. GENERAL APPEARANCE: The patient is seen lying in the ICU bed, middle aged male, awake, alert, oriented to person, place, situation, date, and in no acute distress. HEENT: The extraocular muscles are intact. Tongue is moist. NECK: Jugular veins are elevated. HEART: Sounds are regular, S1, S2. LUNGS: Showing symmetric air entry, clear to auscultation but diminished at the bases. There is no accessory muscle use. He is comfortable on room air. ABDOMEN: Very distended. I see no improvement in abdominal ascites even after a 7 liter paracentesis yesterday. EXTREMITIES: 3+ severe pitting edema from the loser extremities confluent, up to the hip, thighs, dependent area and abdominal flanks. GENITOURINARY: Indwelling Noyola catheter and significant scrotal edema. NEUROLOGICAL: The patient is cooperative with the physical exam, follows simple commands and is oriented to person, place, date and situation. LABORATORY STUDIES: White count 7.5, hemoglobin 8.8, platelet count 317. Sodium 114, repeat sodium this evening 116, bicarbonate 29, BUN 14, creatinine 0.8, magnesium 1.2, ammonia 65, albumin 2.1. AM cortisol level was acceptable. Urine osmolality 331. INPATIENT MEDICATIONS: I increased the Lasix drip to 10 mg an hour. He also did receive 100 mL of hypertonic saline as his sodium level dropped with Lasix drip alone. He received magnesium sulfate run and is on magnesium 400 mg p.o. twice daily. The remainder medications are all unchanged as compared to yesterday. PROBLEMS: 1. Hypo-osmolar hypervolemic hyponatremia secondary to severe fluid overload and anasarca in the setting of decompensated cirrhosis with severe ascites - The patient needs to be diuresed. His sodium will correct as his volume status corrects. Unfortunately when I put him on a Lasix drip, his sodium level actually did drop by 2 points even though the patient diuresed a few liters. Subsequently we gave him 100 mL of hypertonic saline. And the patient is going to continue on a Lasix drip today at 10 mg per hour. He had a paracentesis yesterday with 7 liters of fluid removed but exam shows ongoing abdominal distension and i feel that the patient should have another paracentesis prior to the weekend for symptomatic relief. Continue q. 6 hourly sodium check and ICU nurse is going to call me with his readings. 2. Decompensated liver cirrhosis with anasarca and ascites status post first lifetime paracentesis yesterday with almost 7 liters of fluid removed - I am stopping the albumin infusions at this point. His renal function has recovered to creatinine less than 1. I would continue however with the Octreotide and the Midodrine, and we are continuing him with Lasix infusion as well. 3. Hypotension secondary to decompensated cirrhosis - The patient continues on Midodrine and has received adequate albumin support for increased effective circulating volume and also in the setting of first time large volume paracentesis. I am stopping the albumin at this point but we will continue with Midodrine and Octreotide. 4. Metabolic encephalopathy - The patient was oriented at the time of my visit this morning but states he still feels foggy and slow. His ammonia level is managed by the Primary Service. Most recent reading is 65 and he continues on Lactulose, and his sodium has come up so far by 8 points since admission and I would like to see his sodium in the low 120's by tomorrow morning. PERLA
[2020-12-25] VITALS (18 sets, daily range): BP systolic 82–155; BP diastolic 44–74
[2020-12-25 04:02] LABS: BASO % 0.1 % (0.0-1.0); HEMATOCRIT 28.4 % (42.0-52.0); HEMOGLOBIN 9.9 g/dl (13.5-17.5); LYMPH # 0.7 10^3/uL (1.5-5.0); MEAN CORPUSCULAR HEMOGLOBIN 30.2 pg (27.0-33.0); MEAN CORPUSCULAR HGB CONC 34.9 g/dl (32.0-36.5); MEAN CORPUSCULAR VOLUME 86.6 fl (80.0-96.0); MONO % 10.2 % (2.0-8.0); NEUTROPHILS # 7.7 10^3/uL (1.5-8.5); NEUTROPHILS % 82.2 % (36.0-66.0); PLATELET COUNT, AUTOMATED 362 10^3/uL (150-450); RED BLOOD COUNT 3.28 10^6/uL (4.30-6.10); WHITE BLOOD COUNT 9.3 10^3/uL (4.0-10.0)
[2020-12-25 04:42] LABS: ALBUMIN 2.6 GM/DL (3.2-5.2); BILIRUBIN,DIRECT 1.1 MG/DL (0.0-0.2); BILIRUBIN,TOTAL 1.8 MG/DL (0.2-1.0); PERCENT SATURATION 18.4 % (19.7-50.0); TOTAL PROTEIN 7.2 GM/DL (6.4-8.2)
[2020-12-25 04:44] LABS: BLOOD UREA NITROGEN 13 MG/DL (7-18); CARBON DIOXIDE LEVEL 30 MEQ/L (21-32); CHLORIDE LEVEL 78 MEQ/L (98-107); CREATININE FOR GFR 0.95 MG/DL (0.70-1.30); GLOMERULAR FILTRATION RATE > 60.0 (>60); GLUCOSE, FASTING 125 MG/DL (70-100); POTASSIUM SERUM 3.9 MEQ/L (3.5-5.1); SODIUM LEVEL 115 MEQ/L (136-145)
[2020-12-25 04:45] LABS: CALCIUM LEVEL 8.9 MG/DL (8.5-10.1)
[2020-12-25] MEDS ORDERED: SODIUM CHLORIDE 3% 150 ML IV SCH (05:00)
[2020-12-25] MEDS ORDERED: METOCLOPRAMIDE INJ 10MG/2ML VIAL (J2765 PER 1) IV ONE ×2 (05:25→07:50)
--- NOTE | 2020-12-25 05:48 | REPVR ---
PROCEDURE INFORMATION: Exam: XR Abdomen Exam date and time: 12/25/2020 3:35 AM Age: 45 years old Clinical indication: Other: Abd distension TECHNIQUE: Imaging protocol: XR of the abdomen. Views: Frontal supine view of the abdomen. 1 View. COMPARISON: CT ABD PELVIS W/O CONTRAST 12/22/2020 3:45 PM FINDINGS: Gastrointestinal tract: There is rather diffuse abdominal and upper pelvic prominent gas distension of bowel which likely involves a prominent portion of colon and small bowel. Detailed assessment for abdominal bowel gas pattern significantly limited by the absence of upright or decubitus views. Likely partial air distention of the stomach left upper quadrant. Bones/joints: Degenerative change of the spine. Soft tissues: Significant limitation secondary to patient body habitus. Possible element of rectal fecal expansion significantly limited by superimposed soft tissue density of the abdominal pannus. IMPRESSION: Rather diffuse small and probable partial large bowel gas distension with limited detailed assessment for abdominal bowel gas pattern. Electronically signed by: Nguyen Alexander On 12/25/2020 05:48:25 AM
[2020-12-25] MEDS: SODIUM CHLORIDE 0.9% INJ 10 ML SYR IV SCH ×2 (05:55→17:23)
[2020-12-25] MEDS: OCTREOTIDE ACETATE 100MCG/ML VIAL (J2354 PER 25MCG) SC SCH (05:55)
[2020-12-25] MEDS ORDERED: FUROSEMIDE 40MG/4ML VIAL (J1940) IV ONE (07:10)
[2020-12-25] MEDS ORDERED: methylPREDNISolone 125MG 2ML VIAL IV ONE (07:10)
[2020-12-25] MEDS ORDERED: LEVALBUTEROL 1.25 MG/0.5 ML CONCENTRATE NEB NEB ONE (07:10)
[2020-12-25] MEDS: HumaLOG INSULIN (NovoLOG) PER UNIT SC SCH ×3 (07:30→17:58)
[2020-12-25] MEDS: SUCRALFATE 1 GM TAB PO SCH (07:30)
[2020-12-25] MEDS ORDERED: LACTULOSE 20 GM/30 ML SYRUP UD PR ONE (07:30)
--- NOTE | 2020-12-25 07:32 | IPNPDOC ---
Date Seen The patient was seen on 12/25/20. Progress Note SUBJECTIVE:c/o dyspnea at rest, increasing abd distention,with nausea. no bowel movement. no fever,cp, cough desaturated to 76% on 3liters o2 nc while on hypertonic saline, which was held. still on lasix iv gtt, given one bolus of 40mg iv due to respiratory distress. Per nephrology, goal 12 liters out via paracentesis. OBJECTIVE: PHYSICAL EXAMINATION: VITAL SIGNS: See below GENERAL APPEARANCE: labored breathing. +use of acc resp mm. 5word conversational dyspnea HEENT: Head of bed at 45 degrees dry mucous membranes chapped lips poor dentition. no stridor no carotid bruits CARDIOVASCULAR: S1-S2 regular rate rhythm no S3 nondisplaced point of maximal impulse LUNGS: Diminished bilaterally wheezing b/l ABDOMEN: much more Distended tense obese tympanitic no rebound guarding tenderness without abdominal bruit EXTRE MITIES: 3+ pitting edema to the sacrum Neurologic: Awake alert oriented to person place but disoriented to month no expressive or receptive aphasia face is symmetric tongue is midline motor function is 5 out of 5 x 4 quadrants LABORATORY DATA: See below. IMAGING: See below MICROBIOLOGY: Please see below. ASSESSMENT: 45-year-old male with history of alcohol abuse and tobacco abuse presents emergency room with complaints of worsening anasarca for the past 6 months worse in the past 4 days with nausea vomiting abdominal discomfort distention and decreased ability to concentrate slight confusion found to have a sodium level of 108 with portal hypertension and anasarca. Patient will be admitted as an inpatient for 2 midnights for the following acute issues. Symptomatic hyponatremia -sodium level of 108 at 3 PM on 12/14/2020. -Patient is clinically volume overloaded despite 10 liters output including almost 7liters ascites removed 12/23/20 -nephrology consulted to help manage diuresis and fluid balance -s/p [facility] [place]23[place]20. - In order to support the patient's blood pressure, started pt on midodrine 10 mg 3 times daily as well as albumin transfusions. -Seizure precautions. -on hypertonic saline and lasix iv gtt. -due to resp distress w o2 sat 76% on 3l o2, held hypertonic saline until cxr done. lasix 40 mg iv bolus and continue iv gtt. Acute metabolic encephalopathy -Decreased concentrating ability due to symptomatic hyponatremia with sodium lev el of 108 and elevated ammonia level -Reviewed CT of the head ammonia level and arterial blood gas -slightly improving but still disoriented. -no seizure activity -worsening ammonia and disorientation, lactulose enema today due to c/o nausea. Acute decompensated liver cirrhosis with Anasarca -diffuse fatty liver on ultrasound January 2018 status post EGD colonoscopy by Dr. Berumen -s/p paracentesis <250 pmns no peritonitis ascitic culture pending -s/p albumin, on octreotide, midodrine, lasix iv gtt and 12/23/20 almost 7liters out via paracentesis -nephrology managing lasix iv gtt and hypertonic saline, but needs large volume at least 12liters paracentesis today. Atypical Chest pain -cardiovascular risk factors: male, tobacco abuse, HTN, DM -negative card pedersen -most likely gastritis or PUD -trial of ppi Ileus -tympanitic abd -paracentesis today -enema -once resp status improves, increase activity level w fall precautions Type 2 diabetes -Fingersticks q. ACH S consistent carbohydrate diet sliding scale with coverage per [facility] protocol hypoglycemic protocol Hyperlipidemia -chronic Abnormal TSH -reviewed thyroid proflle. recheck as outpt Carotid artery stenosis -Outpatient follow-up Hypertension -Currently systolic pressure runs 100 mmHg -Hold antihypertensive medications for now Chronic low back pain -Avoid narcotics and sedatives Obstructive sleep apnea -Resume CPAP at home settings Obesity BMI 45.7 -Complicating care Nicotine dependence tobacco abuse -CT chest reviewed Cessation counseling has been provided Nicotine replacement therapy CODE STATUS full code VS, I&O, 24H, Fishbone Vital Signs/I&O Vital Signs Date Time Temp Pulse Resp B/P (MAP) Pulse Ox O2 Delivery O2 Flow Rate FiO2 12/25/20 04:00 98.6 82 15 123/65 (84) 97 Nasal Cannula 3.0 I&O- Last 24 Hours up to 6 AM 12/25/20 06:00 Intake Total 1756.0 ml Output Total 3795 ml Balance -2039.0 ml Laboratory Data 24H LABS Laboratory Tests 2 12/24/20 08:09: Immature Granulocyte % (Auto) 0.4, Neutrophils (%) (Auto) 76.2H, Lymphocytes (%) (Auto) 12.1L, Monocytes (%) (Auto) 10.9H, Eosinophils (%) (Auto) 0.3, Basophils (%) (Auto) 0.1, Neutrophils # (Auto) 5.7, Lymphocytes # (Auto) 0.9L, Monocytes # (Auto) 0.8, Eosinophils # (Auto) 0.0, Basophils # (Auto) 0.0, Nucleated Red Blood Cells % (auto) 0.0 12/24/20 08:10: Erythrocyte Sedimentation Rate 73H, Magnesium Level 1.2L, C-Reactive Protein, Quantitative 3.41H, Procalcitonin 0.23 12/24/20 10:30: Urine Osmolality 331 12/24/20 11:39: Bedside Glucose (Misc Panel) 118H 12/24/20 15:07: Anion Gap 8, Glomerular Filtration Rate > 60.0, Calcium Level 8.5, Ammonia 65H 12/24/20 17:03: Bedside Glucose (Misc Panel) 134H 12/24/20 21:10: Bedside Glucose (Misc Panel) 122H 12/24/20 21:19: Anion Gap 6L, Glomerular Filtration Rate > 60.0, Calcium Level 8.6, Ammonia 61H 12/25/20 03:37: Immature Granulocyte % (Auto) 0.5, Neutrophils (%) (Auto) 82.2H, Lymphocytes (%) (Auto) 7.0L, Monocytes (%) (Auto) 10.2H, Eosinophils (%) (Auto) 0.0, Basophils (%) (Auto) 0.1, Neutrophils # (Auto) 7.7, Lymphocytes # (Auto) 0.7L, Monocytes # (Auto) 1.0H, Eosinophils # (Auto) 0.0, Basophils # (Auto) 0.0, Nucleated Red Blood Cells % (auto) 0.0, Anion Gap 7L, Glomerular Filtration Rate > 60.0, Calcium Level 8.9, Iron Level 44L, Total Iron Binding Capacity 239L, Transferrin % Saturation 18.4L, Ferritin 82, Total Bilirubin 1.8H, Direct Bilirubin 1.1H, Aspartate Amino Transf (AST/SGOT) 78H, Alanine Aminotransferase (ALT/SGPT) 29, Alkaline Phosphatase 181H, Ammonia 78H, Total Protein 7.2, Albumin 2.6#L, Albumin/Globulin Ratio 0.6 CBC/BMP Laboratory Tests 12/24/20 08:09 12/24/20 15:07 12/24/20 21:19 10/1/21 03:37 Microbiology Microbiology 12/23/20 Acid Fast Stain, Received Pending 12/23/20 Mycobacterial Culture, Received Pending 12/23/20 Fungal Smear, Received Pending 12/23/20 Fungal Culture, Received Pending 12/23/20 Gram Stain - Final, Complete 12/23/20 Body Fluid Culture - Final, Complete 12/22/20 Respiratory Virus Panel (PCR) ([facility]) - Final, Complete MACK SHEETS MD Dec 25, 2020 07:32
[2020-12-25 07:57] LABS: ABG BASE EXCESS 1.8 (-2.0-2.0); ABG HCO3 26.2 MEQ/L (22.0-26.0); ABG O2 SATURATION 93.6 % (95.0-99.0); ABG PARTIAL PRESSURE CO2 40.1 mmHg (35.0-45.0); ABG PARTIAL PRESSURE O2 72.8 mmHg (75.0-100.0); ABG TOTAL CO2 27.4 MEQ/L (22.0-29.0); ABG pH (ARTERIAL) 7.433 UNITS (7.350-7.450)
[2020-12-25] MEDS ORDERED: MAG SULF 1GM/100ML (MAG RUN) 1 GM in IV 1 EA IV ONE ×4 (08:00→17:10)
--- NOTE | 2020-12-25 08:00 | REP ---
INDICATION: sob. COMPARISON: Comparison chest x-ray December 23, 2020. TECHNIQUE: Portable upright AP chest radiograph. FINDINGS: The lungs are well inflated and free of infiltrate. Pleural angles are sharp. Heart size is normal. Pulmonary vasculature is not increased. There is minimal platelike atelectasis in the right perihilar region. A right-sided PICC line has been inserted with its tip in the expected location of the SVC. IMPRESSION: Minimal right perihilar platelike atelectasis. Otherwise no acute disease. <Electronically signed by Misbah Tiwari > 12/25/20 [id number]
[2020-12-25] MEDS: NICOTINE 21MG/24HR 1 EA TRANSDERMAL TD SCH (08:26)
[2020-12-25] MEDS: PANTOPRAZOLE 40MG VIAL (C9113 PER 1) IV SCH ×2 (08:26→20:07)
[2020-12-25] MEDS: MIDODRINE 5 MG TAB PO SCH ×2 (08:27→13:00)
[2020-12-25 08:51] LABS: BLOOD UREA NITROGEN 12 MG/DL (7-18); CALCIUM LEVEL 8.7 MG/DL (8.5-10.1); CARBON DIOXIDE LEVEL 28 MEQ/L (21-32); CHLORIDE LEVEL 79 MEQ/L (98-107); CREATININE FOR GFR 0.99 MG/DL (0.70-1.30); GLOMERULAR FILTRATION RATE > 60.0 (>60); GLUCOSE, FASTING 129 MG/DL (70-100); POTASSIUM SERUM 4.3 MEQ/L (3.5-5.1); SODIUM LEVEL 116 MEQ/L (136-145)
[2020-12-25] MEDS: MULTIVITAMINS/MINERALS THERAP 1 TAB PO SCH ×2 (09:00→09:55)
[2020-12-25] MEDS ORDERED: TOLVAPTAN 15 MG TAB (SAMSCA) PO ONE (09:00)
[2020-12-25 09:01] LABS: NT-PRO BNP 214 PG/ML (<125)
[2020-12-25] MEDS: LACTULOSE 20 GM/30 ML SYRUP UD PO SCH (09:54)
[2020-12-25] MEDS: FOLIC ACID 1 MG TAB PO SCH (09:55)
[2020-12-25] MEDS: THIAMINE 100 MG TAB PO SCH (09:55)
[2020-12-25] MEDS: MAGNESIUM OXIDE 400MG TAB (MAG-OX) PO SCH ×2 (10:35→20:07)
[2020-12-25] MEDS: FUROSEMIDE injection 250 MG in D5W 225 ML IV SCH (10:37)
[2020-12-25 11:08] LABS: CK-MB VALUE MASS 4.3 NG/ML (<3.6); CPK CREATINE PHOSPHOKINASE 133 U/L (39-308); MB/CK RELATIVE INDEX 3.23 (< OR =4); TROPONIN I < 0.02 NG/ML (< 0.10)
--- NOTE | 2020-12-25 12:06 | REP ---
INDICATION: per nephrology, remove up to 12liters today pls. ascites. COMPARISON: Comparison is made with today's portable KUB and sonography images from December 23, 2020 at which point, the patient had a 6.8 L of ascites removed. TECHNIQUE: Four quadrant abdominal ascites survey. FINDINGS: Four quadrant abdominal ascites survey demonstrates minimal ascites in the right upper quadrant. However, there are multiple loops of air-filled and fluid-filled dilated bowel throughout the abdomen. Based on this and the radiographs, the bowel distension is felt to be the principal etiology of this patient's abdominal distension. In any event, there was not enough ascitic fluid for safe paracentesis at this juncture and paracentesis was deferred. IMPRESSION: Minimal ascites. Large fluid-filled and air-filled dilated bowel loops throughout the abdomen. Paracentesis deferred. <Electronically signed by Misbah Tiwari > 12/25/20 [id number]
--- NOTE | 2020-12-25 13:09 | REP ---
INDICATION: ng tube placement. COMPARISON: Comparison portable chest x-ray December 25, 2020. TECHNIQUE: Portable upright AP chest radiograph. FINDINGS: EKG monitoring electrodes are present. Right-sided PICC line terminates in the expected location of superior vena cava. Oxygen delivery tubing is seen. History states NG tube placement but no nasogastric tube is visible. Increased vascular and interstitial markings are seen in the lung bases. I suspect discoid atelectasis overlying the right heart border in the right base. IMPRESSION: No NG tube seen. Discoid atelectasis suspected in the right base. Increased interstitial markings left base. <Electronically signed by Misbah Tiwari > 12/25/20 [id number]
[2020-12-25] MEDS: ENOXAPARIN 40MG/0.4ML SYRINGE (J1650 PER 10MG) SC SCH (14:25)
[2020-12-25] MEDS: METOCLOPRAMIDE INJ 10MG/2ML VIAL (J2765 PER 1) IV SCH ×2 (14:25→17:29)
[2020-12-25] MEDS: PIPERACILLIN/TAZOBACTAM SOD 3.375 GM in D5W MINI-BAG PLUS 50 ML IV SCH ×2 (14:26→18:34)
[2020-12-25 16:19] LABS: BLOOD UREA NITROGEN 16 MG/DL (7-18); CALCIUM LEVEL 8.5 MG/DL (8.5-10.1); CARBON DIOXIDE LEVEL 30 MEQ/L (21-32); CHLORIDE LEVEL 80 MEQ/L (98-107); CREATININE FOR GFR 1.33 MG/DL (0.70-1.30); GLOMERULAR FILTRATION RATE > 60.0 (>60); GLUCOSE, FASTING 134 MG/DL (70-100); MAGNESIUM LEVEL 1.2 MG/DL (1.8-2.4); POTASSIUM SERUM 4.4 MEQ/L (3.5-5.1); SODIUM LEVEL 117 MEQ/L (136-145)
[2020-12-25] MEDS ORDERED: NOREPINEPHRINE BITARTRATE 16 MG in D5W 484 ML IV SCH (21:00)
[2020-12-25 21:18] LABS: BLOOD UREA NITROGEN 17 MG/DL (7-18); CALCIUM LEVEL 8.1 MG/DL (8.5-10.1); CARBON DIOXIDE LEVEL 28 MEQ/L (21-32); CHLORIDE LEVEL 81 MEQ/L (98-107); CREATININE FOR GFR 1.34 MG/DL (0.70-1.30); GLOMERULAR FILTRATION RATE > 60.0 (>60); GLUCOSE, FASTING 145 MG/DL (70-100); POTASSIUM SERUM 4.6 MEQ/L (3.5-5.1); SODIUM LEVEL 119 MEQ/L (136-145)
--- NOTE | 2020-12-25 21:31 | REPVR ---
PROCEDURE INFORMATION: Exam: XR Abdomen Exam date and time: 12/25/2020 8:56 PM Age: 45 years old Clinical indication: Abdominal pain; Additional info: Abdo distension TECHNIQUE: Imaging protocol: XR of the abdomen. Views: Frontal supine view of the abdomen. 1 View. COMPARISON: CR PORTABLE ABDOMEN (KUB) 12/25/2020 3:17 AM FINDINGS: Tubes, catheters and devices: Tip of NG tube in left upper quadrant consistent with an intragastric location. Gastrointestinal tract: Dilated loops of small bowel consistent with a small-bowel obstruction versus incompetent ileocecal valve in the setting of colonic obstruction. Dilated colon demonstrated as well. Colonic obstruction to be considered clinically. Bones/joints: Unremarkable. IMPRESSION: 1. Dilated loops of small bowel consistent with a small-bowel obstruction versus incompetent ileocecal valve in the setting of colonic obstruction. 2. Dilated colon demonstrated as well. Colonic obstruction to be considered clinically. Electronically signed by: Josh Tejeda On 12/25/2020 21:30:58 PM
--- NOTE | 2020-12-25 22:01 | REPVR ---
PROCEDURE INFORMATION: Exam: XR Chest Exam date and time: 12/25/2020 9:51 PM Age: 45 years old Clinical indication: Other: Possible aspiration/ngt placement confirmation; Additional info: Possible aspiration/ngt placement confimation TECHNIQUE: Imaging protocol: XR of the chest. Views: 1 view. COMPARISON: CR PORTABLE CHEST X-RAY 12/25/2020 12:48 PM FINDINGS: Tubes, catheters and devices: The tip of a right peripherally inserted central venous catheter lies in the SVC approximately 2 the cm above the cavoatrial junction. NG tube demonstrated in the mediastinum. Lungs: Increased markings left lung base consistent with pneumonitis. Remaining lungs are clear. Pleural spaces: Unremarkable. No pleural effusion. No pneumothorax. Heart/Mediastinum: Unremarkable. No cardiomegaly. Bones/joints: Unremarkable. IMPRESSION: Increased markings left lung base consistent with pneumonitis. Electronically signed by: Josh Tejeda On 12/25/2020 22:01:43 PM
[2020-12-26] VITALS (7 sets, daily range): BP systolic 114–148; BP diastolic 56–71
[2020-12-26] MEDS: HumaLOG INSULIN (NovoLOG) PER UNIT SC SCH ×4 (00:08→17:19)
[2020-12-26] MEDS: METOCLOPRAMIDE INJ 10MG/2ML VIAL (J2765 PER 1) IV SCH ×4 (00:08→17:37)
[2020-12-26] MEDS: PIPERACILLIN/TAZOBACTAM SOD 3.375 GM in D5W MINI-BAG PLUS 50 ML IV SCH ×4 (00:08→18:13)
[2020-12-26 03:26] LABS: BLOOD UREA NITROGEN 17 MG/DL (7-18); CALCIUM LEVEL 8.2 MG/DL (8.5-10.1); CARBON DIOXIDE LEVEL 31 MEQ/L (21-32); CHLORIDE LEVEL 81 MEQ/L (98-107); CREATININE FOR GFR 1.15 MG/DL (0.70-1.30); GLOMERULAR FILTRATION RATE > 60.0 (>60); GLUCOSE, FASTING 146 MG/DL (70-100); POTASSIUM SERUM 4.4 MEQ/L (3.5-5.1); SODIUM LEVEL 120 MEQ/L (136-145)
[2020-12-26 04:15] LABS: HEMATOCRIT 27.5 % (42.0-52.0); HEMOGLOBIN 9.2 g/dl (13.5-17.5); MEAN CORPUSCULAR HEMOGLOBIN 30.4 pg (27.0-33.0); MEAN CORPUSCULAR HGB CONC 33.5 g/dl (32.0-36.5); MEAN CORPUSCULAR VOLUME 90.8 fl (80.0-96.0); PLATELET COUNT, AUTOMATED 310 10^3/uL (150-450); RED BLOOD COUNT 3.03 10^6/uL (4.30-6.10); WHITE BLOOD COUNT 22.1 10^3/uL (4.0-10.0)
[2020-12-26 04:33] LABS: LYMPHOCYTES 4 % (16-44); METAMYELOCYTES 1 % (0-0); MONOCYTES 4 % (0-5); NEUTROPHILS 82 % (28-66); PLATELET ESTIMATE NORMAL (NORMAL)
[2020-12-26 04:50] LABS: ALBUMIN 2.4 GM/DL (3.2-5.2); BILIRUBIN,DIRECT 1.1 MG/DL (0.0-0.2); BILIRUBIN,TOTAL 1.5 MG/DL (0.2-1.0); TOTAL PROTEIN 6.7 GM/DL (6.4-8.2)
[2020-12-26] MEDS ORDERED: ISOVUE-370 76% 100ML VIAL As Ordered ONE (05:39)
[2020-12-26] MEDS: SODIUM CHLORIDE 0.9% INJ 10 ML SYR IV SCH ×2 (06:34→17:38)
--- NOTE | 2020-12-26 07:06 | REPVR ---
PROCEDURE INFORMATION: Exam: CT Abdomen And Pelvis With Contrast Exam date and time: 12/26/2020 5:31 AM Age: 45 years old Clinical indication: Other: Obstruction; Additional info: Sbo, and possible large bowel obstruction, abdo distended. TECHNIQUE: Imaging protocol: Computed tomography of the abdomen and pelvis with contrast. Radiation optimization: All CT scans at this facility use at least one of these dose optimization techniques: automated exposure control; mA and/or kV adjustment per patient size (includes targeted exams where dose is matched to clinical indication); or iterative reconstruction. Contrast material: ISO; Contrast volume: 100 ml; Contrast route: INTRAVENOUS (IV); COMPARISON: CT ABD PELVIS W/O CONTRAST 12/22/2020 3:[address] abdomen/pelvis December 03, 2020. FINDINGS: LUNG BASES: Bibasal patchy airspace opacities are seen involving all lobes consistent with infiltrate/pneumonia, and/or pulmonary edema. These are new compared to the prior study. Clinical correlation and radiographic follow-up is advised, to confirm resolution. VASCULAR: Visualized cardiac size is at the upper end of normal. Coronary arterial calcification noted. No abdominoaortic aneurysm, dissection, or retroperitoneal hematoma. There is aortoiliac and femoral atherosclerosis. PERITONEAL : No free air. There is moderate amount of ascites. This is not significantly changed from the most recent prior study but has increased compared to December 03. GI: No hiatal hernia. Transesophageal catheter terminates within the distal gastric body. The stomach is not sufficiently distended to evaluate wall thickening or for complete diagnostic evaluation by this exam. There is perigastric fluid. There is periduodenal fluid. Proximal jejunal loops are not significantly dilated. Further distal jejunal loops and ileal loops are dilated with fluid and air-fluid levels over 5 cm in diameter. The terminal ileum is not dilated. The colon is distended with fluid and air-fluid levels from the cecum to the distal transverse colon, up to 11 cm in diameter. These findings are progressively worse than on the prior studies. A focal point of transition is seen at the proximal descending colon. The cause of obstruction however is uncertain. Differential would include an ileus or underlying colonic mass. Small bowel dilation is also likely secondary to this. For further evaluation however consider small-bowel follow-through and colonoscopy or fluoroscopic evaluation of the colon to exclude any mechanical causes of obstruction. There is elevated mesenteric vascularity throughout as well as trace amounts of scattered mesenteric fluid and edema. There is mild greater omental edema. A diffuse inflammatory process cannot be excluded. If there is suspicion for infected ascites, consider aspiration and culture. Scattered fecal material and gas is seen within the distal colon and rectum. No evidence of acute diverticulitis. The appendix is not conclusively identified. What may represent a portion of the appendix does not appear to be inflamed although is surrounded by fluid. A lead is seen within the rectum. HEPATOBILIARY, PANCREAS, SPLEEN: Hepatic length is 21 cm. There is severe fatty infiltration of the liver. No calcified gallstones or biliary dilation. There is fluid around the gallbladder. No pancreatic inflammation. Spleen not enlarged. ADRENALS, KIDNEYS, BLADDER, RETROPERITONEAL: Adrenals within normal limits. No hydronephrosis. Symmetric renal enhancement. Mild nonspecific perinephric stranding. The urinary bladder is not well assessed as it is decompressed by Noyola catheter. The bladder appears thick-walled. Any possibility of cystitis to be correlated with urinalysis. There is gas within the urinary bladder which is likely iatrogenic but could be secondary to infection or fistula. MUSCULOSKELETAL: Mild body wall edema is again noted. Degenerative changes of the spine and bony pelvis are noted. IMPRESSION: Bilateral new pulmonary infiltrates/pneumonia. Findings and recommendations discussed above. Worsening small and large bowel dilation may be secondary to ileus or obstruction. Gastrointestinal findings and recommendations discussed above. Moderate amount of ascites again noted. Hepatic enlargement and steatosis. Other findings discussed above. Electronically signed by: Armando Miller On 12/26/2020 07:05:17 AM
[2020-12-26] MEDS ORDERED: VANCOMYCIN HCL 1,000 MG, VIAL MATE ADAPTER 1 EACH in NS 250 ML IV SCH (07:15)
[2020-12-26] MEDS ORDERED: MAG SULF 1GM/100ML (MAG RUN) 1 GM in IV 1 EA IV ONE (08:00)
--- NOTE | 2020-12-26 08:53 | IPNPDOC ---
Date Seen The patient was seen on 12/26/20. Progress Note SUBJECTIVE: Patient was febrile with increased white count given IV Vanco and Zosyn for no pneumonia found on CT abdomen and pelvis. Air-fluid level with worsening abdominal distention into the day yesterday. Ultrasound showed no significant ascitic fluid that could be removed via paracentesis. He still complains of worsening abdominal distention despite nasogastric tube placement with 500 mL's of fluid out. No nausea this morning Complains of slight shortness of breath cough. OBJECTIVE: PHYSICAL EXAMINATION: VITAL SIGNS: See below GENERAL APPEARANCE: l nasogastric tube slight icterus mouth breathing HEENT: Head of bed at 45 degrees dry mucous membranes chapped lips poor dentition. no stridor no carotid bruits CARDIOVASCULAR: S1-S2 regular rate rhythm no S3 nondisplaced point of maximal impulse LUNGS: Diminished crackles bilaterally faint wheezing ABDOMEN: much more Distended tense obese tympanitic no rebound guarding tenderness without abdominal bruit EXTRE MITIES: 3+ pitting edema to the sacrum Neurologic: Awake alert oriented to person place no expressive or receptive aphasia face is symmetric tongue is midline motor function is 5 out of 5 x 4 quadrants LABORATORY DATA: See below. IMAGING: See below MICROBIOLOGY: Please see below. ASSESSMENT: 45-year-old male with history of alcohol abuse and tobacco abuse presents emergency room with complaints of worsening anasarca for the past 6 months worse in the past 4 days with nausea vomiting abdominal discomfort d istention and decreased ability to concentrate slight confusion found to have a sodium level of 108 with portal hypertension and anasarca. Patient will be admitted as an inpatient for 2 midnights for the following acute issues. Symptomatic hyponatremia In the setting of decompensated alcoholic liver cirrhosis with portal hypertension and ascites status post 2 paracentesis, large volume Status post 1 dose of Samsca, status post hypertonic saline, Lasix drip. Still encephalopathic, but sodium is increased from 108 on admission to 120 today. Still volume overloaded with anasarca and 3+ edema up to the sacrum Nephrology consulted for management Acute metabolic encephalopathy Multifactorial due to hyponatremia and hepatic encephalopathy with elevated ammonia level New onset pneumonia found on CT abdomen with fever and leukocytosis currently on broad-spectrum antibiotics with IV Vanco Zosyn and doxycycline Acute decompensated liver cirrhosis with Anasarca Worsening ammonia level with encephalopathy status post 2 large-volume paracentesis Repeat ultrasound of the abdomen showed minimal ascitic fluid to undergo paracentesis Resume lactulose via nasogastric tube Octreotide subcutaneous injections discontinued due to worsening ileus Pneumonia Hospital-acquired Found on CT abdomen pelvis with fever and leukocytosis On broad-spectrum antibiotics Ileus/abdominal distention Minimal relief with nasogastric tube Surgical consult to assist in management Lactic acid ordered Atypical Chest pain -cardiovascular risk factors: male, tobacco abuse, HTN, DM -negative card pedersen -most likely gastritis or PUD -trial of ppi Type 2 diabetes -Fingersticks q. 6 hours while n.p.o. due to ileus -Hypoglycemic protocol Hyperlipidemia -chronic Abnormal TSH -reviewed thyroid proflle. recheck as outpt Carotid artery stenosis -Outpatient follow-up Hypertension -Currently systolic pressure runs 100 mmHg -Hold antihypertensive medications for now Chronic low back pain -Avoid narcotics and sedatives Obstructive sleep apnea -Resume CPAP at home settings Obesity BMI 45.7 -Complicating care Nicotine dependence tobacco abuse -CT chest reviewed Cessation counseling has been provided Nicotine replacement therapy Diet n.p.o. due to ileus and aspiration risk TPN if prolonged n.p.o. status NG tube in place If ileus improves, nasogastric tube feedings are resume oral diet CODE STATUS full code VS, I&O, 24H, Fishbone Vital Signs/I&O Vital Signs Date Time Temp Pulse Resp B/P (MAP) Pulse Ox O2 Delivery O2 Flow Rate FiO2 12/26/20 08:29 88 16 127/56 (79) 92 High Flow Cannula 4.0 12/26/20 07:45 98.2 I&O- Last 24 Hours up to 6 AM 12/26/20 06:00 Intake Total 1190 ml Output Total 3140 ml Balance -1950 ml Laboratory Data 24H LABS Laboratory Tests 2 12/25/20 12:40: Lactic Acid Level 1.9 12/25/20 14:34: Bedside Glucose (Misc Panel) 131H 12/25/20 15:33: Anion Gap 7L, Glomerular Filtration Rate > 60.0, Calcium Level 8.5, Magnesium Level 1.2L 12/25/20 17:36: Bedside Glucose (Misc Panel) 148H 12/25/20 20:34: Anion Gap 10, Glomerular Filtration Rate > 60.0, Lactic Acid Level 1.8, Calcium Level 8.1L, Troponin I < 0.02 12/25/20 23:57: Bedside Glucose (Misc Panel) 149H 12/26/20 02:48: Anion Gap 8, Glomerular Filtration Rate > 60.0, Calcium Level 8.2L 12/26/20 04:05: Neutrophils (%) (Auto) , Nucleated Red Blood Cells % (auto) 0.0, Neutrophils 82H, Band Neutrophils 9, Lymphocytes (Manual) 4L, Monocytes (Manual) 4, Metamyelocytes 1H, Red Blood Cell Morphology NORMAL, Platelet Estimate NORMAL, Magnesium Level 1.6L, Total Bilirubin 1.5H, Direct Bilirubin 1.1H, Aspartate Amino Transf (AST/SGOT) 66H, Alanine Aminotransferase (ALT/SGPT) 29, Alkaline Phosphatase 179H, Ammonia 93H, Total Protein 6.7, Albumin 2.4L, Albumin/Globulin Ratio 0.6 12/26/20 06:27: Bedside Glucose (Misc Panel) 143H 12/26/20 07:40: 12/26/20 07:44: Urine Color YELLOW, Urine Appearance HAZY, Urine pH 5.0, Urine Specific Treichlers 1.023, Urine Protein NEGATIVE, Urine Glucose (UA) NEGATIVE, Urine Ketones NEGATIVE, Urine Blood 2+H, Urine Nitrite NEGATIVE, Urine Bilirubin NEGATIVE, Urine Urobilinogen 0.2, Urine Leukocyte Esterase NEGATIVE, Urine WBC (Auto) 3, Urine RBC (Auto) 1, Urine Hyaline Casts (Auto) 0, Urine Bacteria (Auto) NEGATIVE, Urine Squamous Epithelial Cells 0, Urine Uric Acid Crystals (Auto) SMALL, Urine Mucus (Auto) SMALL, Urine Sperm (Auto) , Lactic Acid Level 1.1 CBC/BMP Laboratory Tests 12/25/20 15:33 12/25/20 20:34 12/26/20 02:48 12/26/20 04:05 Microbiology Microbiology 12/25/20 Blood Culture, Received Pending 12/25/20 Blood Culture, Received Pending 12/23/20 Acid Fast Stain, Received Pending 12/23/20 Mycobacterial Culture, Received Pending 12/23/20 Fungal Smear, Received Pending 12/23/20 Fungal Culture, Received Pending 12/23/20 Gram Stain - Final, Complete 12/23/20 Body Fluid Culture - Final, Complete 12/22/20 Respiratory Virus Panel (PCR) ([facility]) - Final, Complete MACK SHEETS MD Dec 26, 2020:53
[2020-12-26] MEDS ORDERED: MULTIVITAMINS/MINERALS THERAP 1 TAB NG SCH (09:00)
[2020-12-26] MEDS ORDERED: LACTULOSE 20 GM/30 ML SYRUP UD PO SCH (09:00)
[2020-12-26] MEDS: ENOXAPARIN 40MG/0.4ML SYRINGE (J1650 PER 10MG) SC SCH (09:53)
[2020-12-26] MEDS: LACTULOSE 20 GM/30 ML SYRUP UD NG SCH ×4 (09:53→21:20)
[2020-12-26] MEDS: NICOTINE 21MG/24HR 1 EA TRANSDERMAL TD SCH (09:53)
[2020-12-26] MEDS: MAGNESIUM OXIDE 400MG TAB (MAG-OX) NG SCH ×2 (09:54→21:21)
[2020-12-26] MEDS: PANTOPRAZOLE 40MG VIAL (C9113 PER 1) IV SCH ×2 (09:54→21:20)
[2020-12-26] MEDS: FOLIC ACID 1 MG TAB NG SCH (09:54)
[2020-12-26] MEDS: DOXYCYCLINE HYCLATE 100 MG in D5W MINI-BAG PLUS 100 ML IV SCH ×2 (09:54→20:43)
[2020-12-26] MEDS: THIAMINE 100 MG TAB NG SCH (09:54)
[2020-12-26 10:43] LABS: BLOOD UREA NITROGEN 19 MG/DL (7-18); CALCIUM LEVEL 8.4 MG/DL (8.5-10.1); CARBON DIOXIDE LEVEL 34 MEQ/L (21-32); CHLORIDE LEVEL 83 MEQ/L (98-107); CREATININE FOR GFR 1.02 MG/DL (0.70-1.30); GLOMERULAR FILTRATION RATE > 60.0 (>60); GLUCOSE, FASTING 141 MG/DL (70-100); POTASSIUM SERUM 4.2 MEQ/L (3.5-5.1); SODIUM LEVEL 120 MEQ/L (136-145)
[2020-12-26] MEDS ORDERED: PILL CUTTER 1 EACH XX PRN (11:00)
[2020-12-26] MEDS ORDERED: SIMETHICONE 80MG CHEW TAB PO SCH (13:00)
--- NOTE | 2020-12-26 15:47 | IPN ---
NEPHROLOGY PROGRESS NOTE DATE: 12/26/2020 SUBJECTIVE: Mr. Gunter is seen this morning at his bedside. He is sitting at the edge of the bed at the time of my visit. Nursing staff reports that the patient has been appropriate this morning and not confused. Yesterday his blood pressure was low and at one point pressors were considered, however then his blood pressure improved and has been stable. He has good urine output at this point. The patient did have a CAT scan of the abdomen and pelvis done this morning which did show distended bowel loops with air fluid levels suggestive of ileus or obstruction. The patient is currently being treated with nasogastric tube suctioning and has been seen by Surgery. OBJECTIVE: PHYSICAL EXAMINATION: VITAL SIGNS: Temperature is 98 degrees Fahrenheit, heart rate 80 per minute, respiratory rate 16 per minute, blood pressure 127/56 mm of mercury and oxygen saturation is 94% on 2 liters oxygen. HEENT: His head is atraumatic. Nasogastric tube is in place. NECK: Neck veins are difficult to be assessed. HEART: Regular. LUNGS: Diminished breath sounds at the bases. ABDOMEN: Distended and bowel sounds are not audible. EXTREMITIES: Without any cyanosis or clubbing. NEUROLOGICAL: He is awake and without any focal deficits. LABORATORY STUDIES: Today's labs show sodium level of 120, potassium 4.2, chloride 83, CO2 34, BUN 19 and creatinine 1.0. Sodium 141 and calcium 8.4. Lactic acid level is 1.1. His ammonia level was 93 this morning. WBC count is up to 22.1, hemoglobin 9.2 and hematocrit 27.5. PROBLEMS: 1. Hyponatremia sodium level is stable at present without any significant loom changeover operator the last 8 hours. We will continue with frequent electrolyte monitoring. 2. Cirrhosis with ascites - The patient did have a paracentesis done and at present there is no emergent need for further paracentesis. His ammonia level is 93 which is still elevated but improved. 3. Bowel obstruction versus ileus - The patient currently has a nasogastric tube which is being suctioned. It remains to be seen if he improves. 4. Anemia at present his anemia is stable without any active bleeding. He does have increased risk for GI bleed due to cirrhosis of liver. 5. Acute kidney injury - The patient was oliguric, however he is non-oliguric now and making a good amount of urine. We will continue to monitor closely.
--- NOTE | 2020-12-26 15:57 | CR ---
CONSULTATION DATE: 12/26/2020 REASON FOR CONSULTATION: Ileus/bowel obstruction. BRIEF HISTORY OF PRESENT ILLNESS: The patient is a 45-year-old male who has uncontrolled ascites, presents to the hospital several days and underwent a paracentesis on 12/25, has abdominal distention, had some followup films that showed small bowel as well as transverse colon dilatation and I was asked to see him for question of bowel obstruction versus ileus. The patient has had multiple medical issues including cirrhosis and ascites secondary to alcohol abuse. He has not had any bowel movements since NG tube was placed and does not complain of any abdominal pain at this time. He had reportedly seven liters of fluid out with his paracentesis. PAST MEDICAL HISTORY: Significant for a history of diabetes mellitus, hypertension, chronic low back pain, hyperlipidemia, coronary artery disease, coronary artery disease, sleep apnea, tobacco abuse, gastroesophageal reflux disease, degenerative disc disease, internal hemorrhoids, has had a previous cystoscopy and upper and lower endoscopy by Dr. Berumen in the past. PHYSICAL EXAMINATION: General: A 45-year-old male who is conversant, not complaining any nausea, no significant abdominal pain. Although he has had 750 mL of NG tube output, he states that he is feeling less nauseated secondary to the NG tube insertion. Lungs: Reveal crackles at the bases bilaterally. Heart: Regular. Abdomen: Distended, tympanitic, without guarding, without rebound, without peritoneal signs. Extremities: The patient has significant pitting edema throughout. IMPRESSION/PLAN: The patient has uncontrolled ascites with cirrhosis and probable portal hypertension as the etiology for this. Unfortunately, he is not an operative candidate at this time or at least an extremely high risk of mortality if he would need operative intervention. Thus, I would recommend aggressive attempts at nonoperative treatment for him with NG tube decompression, NPO, IV fluids and supporting his overall medical issues including possible pneumonitis appreciated on CT scan. This may be an ileus secondary to infectious etiology. It also could be Edie's or possible mechanical obstruction although I feel that this is very unlikely given his history and current presentation on x-rays. I have added some simethicone for him although I feel that this has little utility but has little downside and I would recommend keeping him NPO, IV fluids. Obviously from a surgical standpoint, I would not recommend intervention at this time. However, it is reasonable to have GI evaluate him for his uncontrolled ascites for two issues, one of which is his uncontrolled ascites and whether he is an individual that needs a higher level of care and #2, whether he needs a colonoscopic decompression. Otherwise, I will be available from a surgical standpoint if necessary but once again his mortality is extremely high should he end up needing operative intervention.
[2020-12-26] MEDS: SIMETHICONE 80MG CHEW TAB NG SCH ×2 (16:28→21:20)
[2020-12-26 17:12] LABS: BLOOD UREA NITROGEN 19 MG/DL (7-18); CALCIUM LEVEL 8.8 MG/DL (8.5-10.1); CARBON DIOXIDE LEVEL 35 MEQ/L (21-32); CHLORIDE LEVEL 85 MEQ/L (98-107); CREATININE FOR GFR 0.98 MG/DL (0.70-1.30); GLOMERULAR FILTRATION RATE > 60.0 (>60); GLUCOSE, FASTING 128 MG/DL (70-100); POTASSIUM SERUM 3.8 MEQ/L (3.5-5.1); SODIUM LEVEL 124 MEQ/L (136-145)
[2020-12-26] MEDS: LEVALBUTEROL 1.25 MG/0.5 ML CONCENTRATE NEB INH PRN (17:57)
[2020-12-26] MEDS: FLUTICASONE PROP 0.05% NASAL SPRAY 16 GM (FLONASE) NARES SCH (18:14)
--- NOTE | 2020-12-26 20:38 | CR.PDOC ---
General Date of Consultation: Dec 26, 2020 Consultation REASON FOR CONSULTATION/CHIEF COMPLAINT: Cirrhosis, ascites HISTORY OF PRESENT ILLNESS: . 45 yo male with decompensated alcoholic cirrhosis presents with weakness and increasing weight and edema. He was found to have massive ascites and marked hyponatremia. He has had paracentesis but has rapidly reaccumulated fluid. He had CT abdomen and pelvis performed for increasing WBC count showing ascites, hepatomegaly and ileus, possible Oglivies. Surgery was consulted and seen patient and made recommendations. NGT and Rectal tube were placed seemingly good results. ALLERGIES: Please see below. HOME MEDICATIONS: Please see below. PAST MEDICAL HISTORY: CAD, Cirrhosis, PVD, Alcoholism, GERD PAST SURGICAL HISTORY: 1. Cysto, EGD, Colonoscopy 2018 FAMILY HISTORY: N/C SOCIAL HISTORY: Tobacco use:[Positive] ETOH: [Positive] REVIEW OF SYSTEMS: Unreliable due to mental status PHYSICAL EXAMINATION: VITAL SIGNS: Please see below. GENERAL APPEARANCE: Chronically ill appearing white male, lying in bed. He is awake and alert. HEENT: Mild icterus RESPIRATORY: shallow breath, coarse b/l CARDIOVASCULAR: RRR, S1S2 ABDOMEN: Markedly distended, marked tympany and shifting dullness. No pain to palpation EXTREMITIES: 2+ edema NEUROLOGICAL: Awake and Alert, but not oriented to time. follows commands Moves all extremities. tremulous LABORATORY DATA: Please see below. ASSESSMENT/PLAN: 1. Decompensated alcoholic liver disease. Alcoholic hepatitis on cirrhosis with marked ascites, coagulopathy 2. Hyponatremia 3. Ileus Rec: 1) Large volume paracentesis q 3-4 days. replace volume with IV Albumin 25%-1 unit an every 2 liters removed. 2) Start diuretic 3) Ileus/oglivies. I agree with surgical recommendations. Consider decompression if needed. Surgery following. suggest TPN if NPO for >48 hrs. I note that mechanical obstruction is unlikely as the patient has had a normal colonoscopy 3 years ago. His colon/small bowel dilation has been present for at least 24 hrs. I understand that he has just had a large BM earlier today and I am hopeful that he has started to decompress spontaneously. At this time I would recommend repeat Abdominal film in am to follow for cecal diameter. if this has decreased, then would observe and continue above recommendations, however if continues to have marked cecal dilation would recommend a trial of Neostigmine 2.5 mg IV over 3-5 minutes. Vital Signs/I&O Vital Signs Date Time Temp Pulse Resp B/P (MAP) Pulse Ox O2 Delivery O2 Flow Rate FiO2 12/26/20 15:36 98.0 82 19 145/66 (92) 89 Room Air 12/26/20 09:10 2.0 I&O- Last 24 Hours up to 6 AM 12/26/20 06:00 Intake Total 1190 ml Output Total 3140 ml Balance -1950 ml Laboratory Data Labs 24H Laboratory Tests 2 12/25/20 20:34: Anion Gap 10, Glomerular Filtration Rate > 60.0, Lactic Acid Level 1.8, Calcium Level 8.1L, Troponin I < 0.02 12/25/20 23:57: Bedside Glucose (Misc Panel) 149H 12/26/20 02:48: Anion Gap 8, Glomerular Filtration Rate > 60.0, Calcium Level 8.2L 12/26/20 04:05: Neutrophils (%) (Auto) , Nucleated Red Blood Cells % (auto) 0.0, Neutrophils 82H, Band Neutrophils 9, Lymphocytes (Manual) 4L, Monocytes (Manual) 4, Metamyelocytes 1H, Red Blood Cell Morphology NORMAL, Platelet Estimate NORMAL, Magnesium Level 1.6L, Total Bilirubin 1.5H, Direct Bilirubin 1.1H, Aspartate Amino Transf (AST/SGOT) 66H, Alanine Aminotransferase (ALT/SGPT) 29, Alkaline Phosphatase 179H, Ammonia 93H, Total Protein 6.7, Albumin 2.4L, Albumin/Globulin Ratio 0.6 12/26/20 06:27: Bedside Glucose (Misc Panel) 143H 12/26/20 07:40: 12/26/20 07:44: Urine Color YELLOW, Urine Appearance HAZY, Urine pH 5.0, Urine Specific [place] 1.023, Urine Protein NEGATIVE, Urine Glucose (UA) NEGATIVE, Urine Ketones NEGATIVE, Urine Blood 2+H, Urine Nitrite NEGATIVE, Urine Bilirubin NEGATIVE, Urine Urobilinogen 0.2, Urine Leukocyte Esterase NEGATIVE, Urine WBC (Auto) 3, Urine RBC (Auto) 1, Urine Hyaline Casts (Auto) 0, Urine Bacteria (Auto) NEGATIVE, Urine Squamous Epithelial Cells 0, Urine Uric Acid Crystals (Auto) SMALL, Urine Mucus (Auto) SMALL, Urine Sperm (Auto) , Lactic Acid Level 1.1, Methicillin-Resist S.aureus DNA PCR NOT DETECTED 12/26/20 10:07: Anion Gap 3L, Glomerular Filtration Rate > 60.0, Calcium Level 8.4L 12/26/20 16:37: Anion Gap 4L, Glomerular Filtration Rate > 60.0, Calcium Level 8.8 CBC/BMP Laboratory Tests 12/25/20 20:34 12/26/20 02:48 12/26/20 04:05 12/26/20 10:07 12/26/20 16:37 Microbiology Microbiology 12/26/20 Gram Stain - Final, Resulted 12/26/20 Sputum Culture, Resulted Pending 12/25/20 Blood Culture - Preliminary, Resulted No growth after 24 hours . All specim... 12/25/20 Blood Culture - Preliminary, Resulted No growth after 24 hours . All specim... 12/23/20 Acid Fast Stain, Received Pending 12/23/20 Mycobacterial Culture, Received Pending 12/23/20 Fungal Smear, Received Pending 12/23/20 Fungal Culture, Received Pending 12/23/20 Gram Stain - Final, Complete 12/23/20 Body Fluid Culture - Final, Complete 12/22/20 Respiratory Virus Panel (PCR) (MARICEL) - Final, Complete Allergies Coded Allergies: No Known Allergies (Unverified , 02/15/19) Home Medications Scheduled Amlodipine Besylate (Amlodipine Besylate) 5 Mg Tablet, 5 MG PO DAILY, (Reported) Aspirin (Aspirin EC) 81 Mg Tablet.dr, 81 MG PO DAILY, (Reported) Atorvastatin Calcium (Atorvastatin Calcium) 80 Mg Tablet, 80 MG PO QHS, (Reported) Cholecalciferol (Vitamin D3) (Vitamin D3) 50 Mcg Capsule, 50 MCG PO DAILY, (Reported) Finasteride (Finasteride) 5 Mg Tablet, 5 MG PO DAILY, (Reported) Furosemide (Furosemide) 40 Mg Tablet, 40 MG PO DAILY, (Reported) Lisinopril/Hydrochlorothiazide (Lisinopril-Hctz 20-12.5 mg Tab) 1 Each Tablet, 2 TAB PO DAILY, (Reported) Metformin HCl (Metformin HCl) 850 Mg Tablet, 850 MG PO BID, (Reported) Morphine Sulfate (Morphine Sulfate ER) 15 Mg Tablet.er, 15 MG PO DAILY, (Reported) Multivitamins (Thera M Plus Tablet) 1 Each Tablet, 1 TAB PO DAILY, (Reported) Omeprazole (Omeprazole) 20 Mg Capsule.dr, 20 MG PO DAILY, (Reported) Tamsulosin Hcl (Tamsulosin HCl) 0.4 Mg Capsule, 0.4 MG PO DAILY, (Reported) Scheduled PRN Fluticasone Propionate (Flonase Allergy Relief) 9.9 Ml [place].susp, 2 SPRAYS NARES DAILY PRN for CONGESTION, (Reported) Hydrocodone/Acetaminophen (Hydrocodone-Acetamin 7.5-325) 1 Each Tablet, 2 TABS PO Q6H PRN for PAIN LEVEL 7-10, (Reported) RAFFAELE BUTLER MD Dec 26, 2020 20:38
--- NOTE | 2020-12-26 22:10 | REPVR ---
PROCEDURE INFORMATION: Exam: XR Abdomen Exam date and time: 12/26/2020 9:03 PM Age: 45 years old Clinical indication: Other: Oglivies/monitor cecal diameter TECHNIQUE: Imaging protocol: XR of the abdomen. Views: Frontal supine view of the abdomen. 1 View. COMPARISON: CT ABD PELVIS WITH CONTRAST 12/26/2020 5:47 AM FINDINGS: Tubes, catheters and devices: An NG tube is noted in the stomach. Gastrointestinal tract: Moderate gas throughout the GI tract with mild gas distention of small bowel and mild gas distention of the colon, primarily transverse colon which measures approximately the 15.2 cm in diameter although in the AP projection, magnification is present. Bones/joints: Mild degenerative change of the lumbar spine. IMPRESSION: Moderate gas throughout the GI tract with mild small-bowel distention and mild distention of the transverse colon which is similar to a CT done earlier in the day. Electronically signed by: Baldo Stapleton On 12/26/2020 22:10:28 PM
[2020-12-26] MEDS ORDERED: NEOSTIGMINE METHYLSULFATE INJ 2 MG in NS 50 ML IV ONE (22:45)
[2020-12-27] VITALS (7 sets, daily range): BP systolic 115–141; BP diastolic 56–75
[2020-12-27] MEDS: PIPERACILLIN/TAZOBACTAM SOD 3.375 GM in D5W MINI-BAG PLUS 50 ML IV SCH ×4 (01:19→20:47)
[2020-12-27] MEDS: METOCLOPRAMIDE INJ 10MG/2ML VIAL (J2765 PER 1) IV SCH ×5 (01:19→23:16)
[2020-12-27] MEDS: HumaLOG INSULIN (NovoLOG) PER UNIT SC SCH ×4 (01:19→17:46)
[2020-12-27 03:01] LABS: BLOOD UREA NITROGEN 17 MG/DL (7-18); CALCIUM LEVEL 8.5 MG/DL (8.5-10.1); CARBON DIOXIDE LEVEL 32 MEQ/L (21-32); CHLORIDE LEVEL 87 MEQ/L (98-107); GLOMERULAR FILTRATION RATE > 60.0 (>60); GLUCOSE, FASTING 128 MG/DL (70-100); POTASSIUM SERUM 3.8 MEQ/L (3.5-5.1); SODIUM LEVEL 127 MEQ/L (136-145)
[2020-12-27] MEDS: SODIUM CHLORIDE 0.9% INJ 10 ML SYR IV SCH ×2 (05:20→16:10)
[2020-12-27 05:43] LABS: BASO % 0.1 % (0.0-1.0); EOS % 0.2 % (0.0-3.0); HEMATOCRIT 26.9 % (42.0-52.0); LYMPH # 1.3 10^3/uL (1.5-5.0); LYMPH % 12.1 % (24.0-44.0); MEAN CORPUSCULAR HEMOGLOBIN 30.1 pg (27.0-33.0); MEAN CORPUSCULAR HGB CONC 33.5 g/dl (32.0-36.5); MONO # 1.1 10^3/uL (0.0-0.8); MONO % 9.9 % (2.0-8.0); NEUTROPHILS # 8.2 10^3/uL (1.5-8.5); NEUTROPHILS % 77.1 % (36.0-66.0); PLATELET COUNT, AUTOMATED 282 10^3/uL (150-450); RED BLOOD COUNT 2.99 10^6/uL (4.30-6.10); WHITE BLOOD COUNT 10.6 10^3/uL (4.0-10.0)
[2020-12-27 06:13] LABS: ALBUMIN 2.3 GM/DL (3.2-5.2); BILIRUBIN,DIRECT 0.9 MG/DL (0.0-0.2); BILIRUBIN,TOTAL 1.2 MG/DL (0.2-1.0); TOTAL PROTEIN 6.2 GM/DL (6.4-8.2)
[2020-12-27 08:14] LABS: MAGNESIUM LEVEL 1.7 MG/DL (1.8-2.4)
--- NOTE | 2020-12-27 08:28 | REP ---
INDICATION: oglivie, follow up cecal dilation. COMPARISON: Comparison radiographs December 26, 2020. TECHNIQUE: Portable supine KUB. Two views provided. FINDINGS: There is marked diffuse air and fluid distension of the entire colon consistent with ileus versus distal colonic obstruction. There is some air in the rectum. An NG tube is seen in the left upper quadrant. There are a few loops of air-filled dilated small bowel as well. The degree of distention is similar to yesterday's radiograph in the colon loops. The small bowel loops are less prominent.. IMPRESSION: Small bowel loops less prominent. Ileus pattern persists. Marked colonic distension is seen, 14.1 cm in the hepatic flexure transverse dimension. <Electronically signed by Misbah Tiwari > 12/27/20 [id number]
[2020-12-27] MEDS: MAGNESIUM OXIDE 400MG TAB (MAG-OX) NG SCH ×2 (08:53→21:05)
[2020-12-27] MEDS: LACTULOSE 20 GM/30 ML SYRUP UD NG SCH ×4 (08:53→21:05)
[2020-12-27] MEDS: SIMETHICONE 80MG CHEW TAB NG SCH ×4 (08:54→21:04)
[2020-12-27] MEDS: FOLIC ACID 1 MG TAB NG SCH (08:54)
[2020-12-27] MEDS: MULTIVITAMINS CHILDREN'S CHEWABLE TABLET NG SCH (08:54)
[2020-12-27] MEDS ORDERED: LIDOCAINE 2% 100MG/5ML SDV (FOR ANES.) As Ordered ONE (08:56)
[2020-12-27] MEDS: THIAMINE 100 MG TAB NG SCH (08:56)
[2020-12-27] MEDS ORDERED: propofoL 200 MG/20 ML VIAL As Ordered ONE ×3 (08:56→10:34)
[2020-12-27] MEDS: NICOTINE 21MG/24HR 1 EA TRANSDERMAL TD SCH (08:56)
[2020-12-27] MEDS: PANTOPRAZOLE 40MG VIAL (C9113 PER 1) IV SCH ×2 (08:57→21:58)
[2020-12-27] MEDS: ENOXAPARIN 40MG/0.4ML SYRINGE (J1650 PER 10MG) SC SCH (08:57)
[2020-12-27] MEDS: DOXYCYCLINE HYCLATE 100 MG in D5W MINI-BAG PLUS 100 ML IV SCH ×2 (08:57→21:58)
[2020-12-27] MEDS: FLUTICASONE PROP 0.05% NASAL SPRAY 16 GM (FLONASE) NARES SCH (08:58)
[2020-12-27] MEDS ORDERED: MAG SULF 1GM/100ML (MAG RUN) 1 GM in IV 1 EA IV ONE (09:00)
--- NOTE | 2020-12-27 09:32 | IPN ---
PROGRESS NOTE DATE: 12/27/2020 SUBJECTIVE: Despite having some relief with rectal tube yesterday, the patient continues to have increasing abdominal distention, gas, nausea, this morning decreased appetite, remains NPO, is afebrile, no complaints of chills but has some shortness of breath and cough productive of white sputum. His mentation is improving slightly. White count is decreased from 22,000 to 10,000 on antibiotics. Sodium level is up to 127. Nasogastric tube is still in place. OBJECTIVE: Vitals: Temperature 98.7, pulse 87, respiratory rate 18, blood pressure 115/56, 97% on room air. General: Awake, alert and oriented to person and place, answering questions appropriately, mildly icteric, no jaundice. Speaks in full sentences, very dry. HEENT: Dry mucous membranes. Chapped lips. Mild distress but able to complete full sentences. No JVD, thyromegaly. Heart: S1, S2, sinus rhythm, no murmurs, rubs or gallops. No S-3. Lungs: Diminished breath sounds with bilateral rhonchi and crackles. Abdomen: Severely distended, tympanitic, tense. Extremities: 3+ pitting edema. Laboratory data, imaging studies, microbiology have been reviewed. ASSESSMENT AND PLAN: This is a 45-year-old male with history of alcoholic liver cirrhosis, tobacco abuse, presents with confusion, difficulty with concentration, anasarca, found to have a sodium of 108. IMPRESSION: 1. Symptomatic hyponatremia. 2. Decompensated alcoholic liver cirrhosis with portal hypertension and ascites, status post paracentesis. 3. Acute hepatic encephalopathy, acute metabolic encephalopathy. 4. Pneumonia. 5. Atypical chest pain. 6. Type 2 diabetes. 7. Dyslipidemia. 8. Abnormal TSH. 9. Carotid artery stenosis. 10. Chronic low back pain. 11. Hypertension. 12. Obstructive sleep apnea. 13. Hypomagnesemia. 14. Obesity. 15. Nicotine dependence, tobacco abuse. 16. Ileus. PLAN: Patient has been managed by nephrology regarding his sodium level. It has improved from 108 on admission to 127. He is status post hypertonic saline, Lasix drip and SAMSCA. Mentation is improved. He is currently NPO due to severe ileus, has had no improvement with nasogastric tube placement and rectal tube. He is still to undergo decompressive colonoscopy today per surgical recommendations and will be done by tax senior associate, Dr. Berumen. Patient is completely NPO due to severe abdominal distention and will be started on TPN for 48 hours until the abdomen improves. Appreciate management by nephrology, general surgery and gastroenterology. Patient is medically stable to transfer to PCU bed.
[2020-12-27 09:52] LABS: BLOOD UREA NITROGEN 16 MG/DL (7-18); CALCIUM LEVEL 8.6 MG/DL (8.5-10.1); CARBON DIOXIDE LEVEL 34 MEQ/L (21-32); CHLORIDE LEVEL 89 MEQ/L (98-107); CREATININE FOR GFR 0.88 MG/DL (0.70-1.30); GLOMERULAR FILTRATION RATE > 60.0 (>60); GLUCOSE, FASTING 112 MG/DL (70-100); POTASSIUM SERUM 3.8 MEQ/L (3.5-5.1); SODIUM LEVEL 129 MEQ/L (136-145)
--- NOTE | 2020-12-27 11:00 | ROOR ---
Patient Name: Gt Gunter Procedure Date: 12/27/2020 9:26 AM Date of : 1975 Age: 45 Room: Main OR Gender: Male Note Status: Finalized Procedure: Colonoscopy Indications: Decompression of Oglivies/acute non-toxic megacolon. Providers: Henrique Berumen MD Referring MD: 2. Inpatient 2. Inpatient Requesting Provider: Medicines: Monitored Anesthesia Care Complications: No immediate complications. Procedure: Pre-Anesthesia Assessment: - The heart rate, respiratory rate, oxygen saturations, blood pressure, adequacy of pulmonary ventilation, and response to care were monitored throughout the procedure. The Colonoscope was introduced through the anus and advanced to 5 cm into the ileum. The colonoscopy was somewhat difficult due to poor endoscopic visualization. The patient tolerated the procedure well. The quality of the bowel preparation was 80 percent obscured. Findings: The perianal and digital rectal examinations were normal. The colon is grossly normal without large tumors or obstructing lesions all the way to cecum and at least 5 cm into terminal ileum. This is an unprepped colon decompression procedure. Unable to perform adequate detail examination. Decompression of the colon was partially acheived and partial decompression was achieved. Impression: - The colon is grossly normal without large tumors or obstructing lesions all the way to the terminal ileum. This is an unprepped colon decompression procedure. Unable to perform adequate detail examination. Small lesions may have been missed. - Significant decompression of the colon was achieved. Abdomen still quite large and tympanitic, but softer post procedure. - No specimens collected. Recommendation: - Check another KUB now. If cecal dilation persists, then would repeat Neostigmine 2 mg over 15 minutes today. Surgery is on board. Pt may need venting colostomy depending on results. Procedure Code(s): --- Professional --- 39807, Colonoscopy, flexible; with decompression (for pathologic distention) (eg, volvulus, megacolon), including placement of decompression tube, when performed Diagnosis Code(s): --- Professional --- K59.39, Other megacolon CPT copyright 2019 [employer]. All rights reserved. The codes documented in this report are preliminary and upon vb developer review may be revised to meet current compliance requirements. Henrique Berumen MD Henrique Berumen MD 12/27/2020 10:59:50 AM Electronically signed by Henrique Berumen MD Number of Addenda: 0 Note Initiated On: 12/27/2020 9:26 AM Estimated Blood Loss: Estimated blood loss: none.
[2020-12-27] MEDS ORDERED: NS 1,000 ML IV SCH (11:20)
[2020-12-27] MEDS ORDERED: ONDANSETRON 4MG/2ML VIAL IV PRN (11:20)
--- NOTE | 2020-12-27 11:49 | REP ---
INDICATION: follow up colon decompression (when pt arrives to floor). COMPARISON: 7:30 a.m. radiograph on December 27, 2020. TECHNIQUE: Portable supine radiographs, two views. 11:40 a.m.. FINDINGS: An ileus pattern is again seen. There is moderate distention of multiple loops of small bowel in the central abdomen. The earlier film showed predominantly large bowel distension pattern. This has improved. There is a mildly dilated segment of proximal transverse colon in the right upper quadrant improved from the prior study. The small bowel loops are somewhat more numerous. And NG tube is seen in place terminating in the mid stomach region. IMPRESSION: Significantly improved colonic distension. There is moderate distension of small bowel loops in the central abdomen. <Electronically signed by Misbah Tiwari > 12/27/20 [id number]
[2020-12-27] MEDS ORDERED: FAT EMULSION IV 250 ML IV SCH (18:00)
[2020-12-27] MEDS ORDERED: AMINO AC/ELECTROLYTE/DEX/CALC 2,000 ML IV SCH (18:00)
--- NOTE | 2020-12-27 20:53 | IPN ---
PROGRESS NOTE DATE: 12/27/2020 SUBJECTIVE: Mr. Gunter is seen this morning on his bedside. He just came back from the OR after having colonoscopy and decompression of his cecum and colon. He still has his nasogastric tube present. PHYSICAL EXAMINATION: VITALS: Temperature 98.3 degrees Fahrenheit, heart rate 88 per minute, respiratory rate 17 per minute, blood pressure 131/75 mmHg and oxygen saturation 88% and up 98%. HEENT: Head atraumatic. Neck supple, JVD not elevated. Nasogastric tube is in place. HEART: Heart sounds are regular. LUNGS: Lungs sound better with improved air entry. ABDOMEN: Still quite firm and distended. Bowel sounds are not audible. EXTREMITIES: Without any cyanosis or clubbing. NEUROLOGIC: He is awake and without a focal deficit. LABORATORY DATA: Today's labs show WBC 10.6, hemoglobin 9.0, hematocrit 26.9, platelets 282,000. Sodium 129, potassium 3.8, BUN 16 and creatinine 0.88. Glucose 112 and calcium 8.6. Total bilirubin 1.2, AST 55, ALT 28. PROBLEMS: 1. Hyponatremia: Sodium level is improving nicely and now it is in the safe range. If patient needs any I.V. fluid, he should be given normal saline. 2. Cirrhosis and ascites: His ascites has been drained with paracentesis. At present, he is mostly distended due to ileus and not due to ascites, though he does have some ascites present. 3. Abdominal distention with ileus: Patient has significant ileus with distended bowel loops. He just came back from the OR after colonoscopy and decompression of his colon. He remains with nasogastric tube suctioning. From a renal standpoint, the patient is improved, however, his GI problems are still not resolved. He is not receiving any nutrition at this time.
[2020-12-28] VITALS: BP 128/59
[2020-12-28] MEDS: PIPERACILLIN/TAZOBACTAM SOD 3.375 GM in D5W MINI-BAG PLUS 50 ML IV SCH ×2 (02:08→10:11)
[2020-12-28 04:00] VITALS: BP 138/75
[2020-12-28] MEDS: METOCLOPRAMIDE INJ 10MG/2ML VIAL (J2765 PER 1) IV SCH ×4 (05:10→23:53)
[2020-12-28] MEDS: SODIUM CHLORIDE 0.9% INJ 10 ML SYR IV SCH ×2 (05:10→13:00)
[2020-12-28 05:22] LABS: BASO % 0.1 % (0.0-1.0); EOS % 0.4 % (0.0-3.0); HEMATOCRIT 28.9 % (42.0-52.0); HEMOGLOBIN 9.6 g/dl (13.5-17.5); LYMPH # 1.6 10^3/uL (1.5-5.0); LYMPH % 17.1 % (24.0-44.0); MEAN CORPUSCULAR HEMOGLOBIN 30.3 pg (27.0-33.0); MEAN CORPUSCULAR HGB CONC 33.2 g/dl (32.0-36.5); MEAN CORPUSCULAR VOLUME 91.2 fl (80.0-96.0); MONO % 10.5 % (2.0-8.0); NEUTROPHILS # 6.4 10^3/uL (1.5-8.5); NEUTROPHILS % 71.3 % (36.0-66.0); PLATELET COUNT, AUTOMATED 269 10^3/uL (150-450); RED BLOOD COUNT 3.17 10^6/uL (4.30-6.10)
[2020-12-28] MEDS ORDERED: MAG SULF 1GM/100ML (MAG RUN) 1 GM in IV 1 EA IV ONE (05:30)
[2020-12-28 05:46] LABS: ALBUMIN 2.2 GM/DL (3.2-5.2); ALT/SGPT 28 U/L (12-78); BILIRUBIN,DIRECT 0.8 MG/DL (0.0-0.2); BILIRUBIN,TOTAL 1.1 MG/DL (0.2-1.0); TOTAL PROTEIN 6.2 GM/DL (6.4-8.2)
[2020-12-28] MEDS: HumaLOG INSULIN (NovoLOG) PER UNIT SC SCH ×5 (06:00→23:56)
[2020-12-28 07:20] LABS: MAGNESIUM LEVEL 1.6 MG/DL (1.8-2.4)
--- NOTE | 2020-12-28 07:49 | ECHO ---
ECHOCARDIOGRAM DATE OF PROCEDURE: 12/24/2020 Age: 45 Gender: M REFERRING PHYSICIAN: Maria Del Rosario Barboza MD PATIENT LOCATION: Room 3204 REASON FOR STUDY: Shortness of breath MEASUREMENTS: 2D MEASUREMENTS: IVS 0.88 cm LV 5.8 cm LVPW 1.1 cm LA 4.9 cm Aorta 3.1 cm DOPPLER MEASURMENTS: Peak velocity across the aortic valve 1.8 m/s Peak velocity across the LVOT 1.4 m/s Mitral E 1.1, mitral A 0.94 with a ratio of 1.2 Maximum tricuspid valve velocity 3.2 m/s 2D COMMENTS: 1. The left ventricle appeared to be normal in size. Normal left ventricular wall thickness. Left ventricular systolic function is normal, estimated at 60% to 65%. 2. Mildly enlarged left atrium. The right atrium and the right ventricle were not well visualized but maybe mildly enlarged in limited views. 3. The atrial septum appeared to be normal without evidence of defect or shunt. 4. Normal aortic root. 5. No pericardial effusion seen. 6. Mildly calcified aortic valve with normal leaflet excursion. Normal tricuspid valve and tricuspid valve. The pulmonic valve and proximal pulmonary artery branches were not well visualized. 7. The inferior vena cava was not well visualized. DOPPLER: Only mild tricuspid regurgitation detected. The calculated pulmonary artery systolic pressure varies between 30 to 40 mmHg. Assessment of the left ventricular diastolic function appeared to be normal. IMPRESSION: 1. Normal global left ventricular systolic and diastolic function. 2. Aortic valve sclerosis with trivial aortic stenosis, but no aortic regurgitation. 3. Mild tricuspid regurgitation with probably mild pulmonary hypertension. 4. The right heart chambers were not well visualized. MTDD
[2020-12-28 08:00] VITALS: BP 138/68
[2020-12-28 08:20] LABS: BLOOD UREA NITROGEN 10 MG/DL (7-18); CALCIUM LEVEL 8.9 MG/DL (8.5-10.1); CARBON DIOXIDE LEVEL 33 MEQ/L (21-32); CHLORIDE LEVEL 91 MEQ/L (98-107); CREATININE FOR GFR 0.75 MG/DL (0.70-1.30); GLOMERULAR FILTRATION RATE > 60.0 (>60); GLUCOSE, FASTING 140 MG/DL (70-100); POTASSIUM SERUM 3.5 MEQ/L (3.5-5.1); SODIUM LEVEL 131 MEQ/L (136-145)
[2020-12-28] MEDS: PANTOPRAZOLE 40MG VIAL (C9113 PER 1) IV SCH ×2 (09:01→21:05)
[2020-12-28] MEDS: FLUTICASONE PROP 0.05% NASAL SPRAY 16 GM (FLONASE) NARES SCH (09:02)
[2020-12-28] MEDS: FOLIC ACID 1 MG TAB NG SCH (09:02)
[2020-12-28] MEDS: NICOTINE 21MG/24HR 1 EA TRANSDERMAL TD SCH (09:02)
[2020-12-28] MEDS: SIMETHICONE 80MG CHEW TAB NG SCH ×4 (09:02→21:06)
[2020-12-28] MEDS: MULTIVITAMINS CHILDREN'S CHEWABLE TABLET NG SCH (09:02)
[2020-12-28] MEDS: ENOXAPARIN 40MG/0.4ML SYRINGE (J1650 PER 10MG) SC SCH (09:03)
[2020-12-28] MEDS: THIAMINE 100 MG TAB NG SCH (09:03)
[2020-12-28] MEDS: MAGNESIUM OXIDE 400MG TAB (MAG-OX) NG SCH ×2 (09:04→21:06)
[2020-12-28] MEDS: LACTULOSE 20 GM/30 ML SYRUP UD NG SCH ×4 (09:30→21:06)
[2020-12-28] MEDS: DOXYCYCLINE HYCLATE 100 MG in D5W MINI-BAG PLUS 100 ML IV SCH (11:14)
--- NOTE | 2020-12-28 11:27 | IPN ---
CANCELLED DICTATION MTDD
--- NOTE | 2020-12-28 11:27 | IPN ---
PROGRESS NOTE DATE: 12/28/2020 SUBJECTIVE: Patient still complains of abdominal distention but significantly improved. No nausea. Still with shortness of breath, mild cough. No fever or chills overnight. Temperature 98.2, pulse 97, respiratory rate 20, blood pressure 138/68, 89% on room air. Generally: Disheveled, mild distress, no use of respiratory accessory muscles. Lungs: Diminished with coarse rhonchi and bilateral crackles. Heart: S1, S2, sinus rhythm. Abdomen: Distended, tympanitic, decreased distention from yesterday. Extremities: 3+ pitting edema. Laboratory data, microbiology, imaging studies have been reviewed. Sputum culture grew out Klebsiella sensitive to ceftriaxone and Levaquin. ASSESSMENT AND PLAN: This is a 45-year-old male with history of alcoholic liver cirrhosis, tobacco abuse, presents with confusion, difficulty concentrating, anasarca, and increasing abdominal distention, found to have sodium of 108. IMPRESSION: 1. Symptomatic hyponatremia due to beer potomania and alcoholic liver cirrhosis with portal hypertension and anasarca with decrease in effective circulating volume to the kidneys. 2. Decompensated alcoholic liver cirrhosis with portal hypertension, recurrent ascites status post paracentesis, large volume. 3. Acute hepatic encephalopathy due to decompensated alcoholic liver cirrhosis. 4. Acute metabolic encephalopathy. 5. Pneumonia with Klebsiella. 6. Atypical chest pain. 7. Type 2 diabetes. 8. Ileus status post decompressive colonoscopy. 9. Dyslipidemia. 10. Abnormal thyroid stimulating hormone (TSH). 11. Carotid artery stenosis. 12. Chronic low back pain. 13. Alcohol abuse. 14. Tobacco abuse with nicotine dependence. 15. Obstructive sleep apnea (CAT). 16. Hypomagnesemia. 17. Obesity. PLAN: Patient's sodium level has improved to 129 today. Mental status has improved. Appreciate nephrology consultation and management with sodium level of 131 this morning. Magnesium has been repleted with magnesium runs and magnesium oxide. For the patient's ileus, he underwent decompressive colonoscopy yesterday with Dr. Berumen. He is currently nothing by mouth with ice chips and on his second day of total parenteral nutrition (TPN). No significant ascites in the abdomen, very tympanitic. Deescalate antibiotics from Zosyn to ceftriaxone or Levaquin since Klebsiella is sensitive. For the alcohol abuse, cessation counseling has been provided. He would need referral to alcohol rehabilitation program as outpatient once medically stable. He is kept on Clinical [place] Withdrawal Assessment (CIWA) protocol, folic acid, thiamine, and multivitamin. For the encephalopathy due to elevated ammonia level, he is currently on lactulose via nasogastric tube. Nasogastric (NG) tube is still in place. Appreciate gastrointestinal (GI) and surgical consultation with help in management.
[2020-12-28] MEDS: cefTRIAXone SOD 2 GM in D5W MINI-BAG PLUS 50 ML IV SCH (12:21)
[2020-12-28] MEDS: LEVALBUTEROL 1.25 MG/0.5 ML CONCENTRATE NEB INH PRN (15:56)
[2020-12-28 16:00] VITALS: BP 142/74
[2020-12-28] MEDS ORDERED: MULTIVITAMIN -ADULT INJECTION 10 ML, ZINC/COPPER/MANGANESE/SELENIUM 1 ML in AMINO AC/EL... IV SCH (18:00)
[2020-12-28] MEDS ORDERED: FAT EMULSION IV 250 ML IV SCH (18:00)
[2020-12-28] MEDS ORDERED: HumaLOG INSULIN (NovoLOG) PER UNIT SC SCH (18:00)
[2020-12-28 20:00] VITALS: BP 139/68
--- NOTE | 2020-12-28 21:22 | IPN ---
NEPHROLOGY PROGRESS NOTE DATE: 12/28/2020 SUBJECTIVE: Mr. Gunter is seen this morning at his bedside. He has been transferred out of the Intensive Care Unit to the stepdown unit. He remains with a nasogastric tube hooked to suctioning. He is also receiving TPN now. His abdominal distention remains unchanged. OBJECTIVE: PHYSICAL EXAMINATION: VITAL SIGNS: Temperature 98.2 degrees Fahrenheit, heart rate 96 per minute, and respiratory rate 20 per minute. Blood pressure 138/68 mm of mercury and oxygen saturation is 91% on 2 liters oxygen. HEENT: His head is atraumatic. NECK: Supple and without JVD or thyroid enlargement. Nasogastric tube is in place. HEART: Sounds are regular. LUNGS: Diminished breath sounds at the bases. ABDOMEN: Markedly distended and firm. Bowel sounds are not audible. EXTREMITIES: Without any cyanosis or clubbing. LABORATORY STUDIES: Today's labs show a white blood cell count of 9.0, hemoglobin 9.6 and hematocrit 28.9. Sodium is up to 131, potassium 3.5, BUN 10 and creatinine 0.75, glucose 140 and calcium 8.9. His total protein is 6.2 and albumin 2.2. PROBLEMS: 1. Hyponatremia - sodium level has improved significantly and now he is receiving TPN. I would recommend to adjust his TPN to correct his hyponatremia and other electrolytes. 2. Hypokalemia his potassium level is borderline which can also be corrected with TPN adjustment. 3. Hypomagnesemia I would recommend to add increased magnesium in TPN to address his low magnesium level. 4. Ileus with abdominal distention - abdominal distention has not improved despite colonoscopy and attempts to decompress his colon yesterday. He is being followed by Surgery and remains with nasogastric tube suctioning.
[2020-12-29 04:00] VITALS: BP 132/75
[2020-12-29 05:42] LABS: BASO % 0.3 % (0.0-1.0); EOS # 0.1 10^3/uL (0.0-0.5); EOS % 0.4 % (0.0-3.0); HEMATOCRIT 29.5 % (42.0-52.0); HEMOGLOBIN 9.9 g/dl (13.5-17.5); LYMPH # 1.6 10^3/uL (1.5-5.0); LYMPH % 13.6 % (24.0-44.0); MEAN CORPUSCULAR HEMOGLOBIN 30.2 pg (27.0-33.0); MEAN CORPUSCULAR HGB CONC 33.6 g/dl (32.0-36.5); MEAN CORPUSCULAR VOLUME 89.9 fl (80.0-96.0); MONO # 1.3 10^3/uL (0.0-0.8); NEUTROPHILS # 8.5 10^3/uL (1.5-8.5); NEUTROPHILS % 73.8 % (36.0-66.0); PLATELET COUNT, AUTOMATED 244 10^3/uL (150-450); RED BLOOD COUNT 3.28 10^6/uL (4.30-6.10); WHITE BLOOD COUNT 11.5 10^3/uL (4.0-10.0)
[2020-12-29] MEDS: HumaLOG INSULIN (NovoLOG) PER UNIT SC SCH ×3 (06:00→18:12)
[2020-12-29 06:15] LABS: BLOOD UREA NITROGEN 9 MG/DL (7-18); CALCIUM LEVEL 8.5 MG/DL (8.5-10.1); CARBON DIOXIDE LEVEL 32 MEQ/L (21-32); CHLORIDE LEVEL 93 MEQ/L (98-107); CREATININE FOR GFR 0.71 MG/DL (0.70-1.30); GLOMERULAR FILTRATION RATE > 60.0 (>60); GLUCOSE, FASTING 144 MG/DL (70-100); MAGNESIUM LEVEL 1.6 MG/DL (1.8-2.4); PHOSPHORUS LEVEL 2.8 MG/DL (2.5-4.9); POTASSIUM SERUM 3.4 MEQ/L (3.5-5.1); SODIUM LEVEL 131 MEQ/L (136-145)
[2020-12-29 06:17] LABS: ALBUMIN 2.3 GM/DL (3.2-5.2); BILIRUBIN,DIRECT 0.8 MG/DL (0.0-0.2); BILIRUBIN,TOTAL 1.2 MG/DL (0.2-1.0); TOTAL PROTEIN 7.2 GM/DL (6.4-8.2)
[2020-12-29] MEDS: SODIUM CHLORIDE 0.9% INJ 10 ML SYR IV SCH ×2 (06:26→18:12)
[2020-12-29] MEDS: METOCLOPRAMIDE INJ 10MG/2ML VIAL (J2765 PER 1) IV SCH ×3 (06:26→18:12)
[2020-12-29] MEDS ORDERED: POTASSIUM CHLORIDE 10% LIQ 20 MEQ/15 ML UDC NG ONE (07:35)
[2020-12-29] MEDS ORDERED: MAG SULF 1GM/100ML (MAG RUN) 1 GM in IV 1 EA IV ONE (08:00)
[2020-12-29 08:11] VITALS: BP 135/67
[2020-12-29] MEDS: PANTOPRAZOLE 40MG VIAL (C9113 PER 1) IV SCH ×2 (08:56→22:07)
[2020-12-29] MEDS: SIMETHICONE 80MG CHEW TAB NG SCH ×4 (08:56→22:07)
[2020-12-29] MEDS: LACTULOSE 20 GM/30 ML SYRUP UD NG SCH ×4 (08:56→22:08)
[2020-12-29] MEDS: NICOTINE 21MG/24HR 1 EA TRANSDERMAL TD SCH (08:56)
[2020-12-29] MEDS: THIAMINE 100 MG TAB NG SCH (08:57)
[2020-12-29] MEDS: MULTIVITAMINS CHILDREN'S CHEWABLE TABLET NG SCH (08:57)
[2020-12-29] MEDS: MAGNESIUM OXIDE 400MG TAB (MAG-OX) NG SCH ×2 (08:57→22:08)
[2020-12-29] MEDS: FOLIC ACID 1 MG TAB NG SCH (08:57)
[2020-12-29] MEDS: ENOXAPARIN 40MG/0.4ML SYRINGE (J1650 PER 10MG) SC SCH (08:59)
[2020-12-29] MEDS: FLUTICASONE PROP 0.05% NASAL SPRAY 16 GM (FLONASE) NARES SCH (09:00)
--- NOTE | 2020-12-29 10:49 | IPNPDOC ---
Subjective Date Seen The patient was seen on 12/29/20. Subjective Chief Complaint/HPI Patient reports that his abdominal distention is much less and denies any pain. Reports that he has been having multiple green liquidy bowel movements and has been passing flatus. He also reports that he is hungry and would like a diet. No fever or chill. Alert and oriented. Does have some ongoing cough. Denies any shortness of breath Objective Physical Examination General Exam: Positive: Alert, Cooperative, No Acute Distress Eye Exam: Positive: PERRLA, Conjunctiva & lids normal, EOMI; Negative: Sclera icteric ENT Exam: Positive: Atraumatic, Mucous membr. moist/pink, Pharynx Normal Neck Exam: Positive: Supple; Negative: JVD, thyromegaly Chest Exam: Positive: Diminished (Diminished at bases), Other (Bilateral basal crackle); Negative: Rales, Rhonchi, Wheezing Heart Exam: Positive: Rate Normal, Regular Rhythm, Normal S1, Normal S2; Negative: Murmurs, Rubs Abdomen Exam: Positive: BS Hypoactive, Soft, Other (Distended and tympanitic); Negative: Tenderness Extremity Exam: Negative: Clubbing, Cyanosis, Edema Assessment /Plan Assessment This is a 45-year-old male with history of alcoholic liver cirrhosis, tobacco abuse, presented with confusion, difficulty concentrating, anasarca, and increasing abdominal distention, found to have sodium of 108. Admitted for hyponatremia, metabolic encephalopathy and decompensated cirrhosis of liver. Hospital course was complicated by Klebsiella pneumonia, bowel Ileus s/p decompressive colonoscopy remains on NG tube and on TPN. Hyponatremia due to beer potomania and alcoholic liver cirrhosis. Appreciate nephrology consultation Decompensated alcoholic liver cirrhosis with portal hypertension, recurrent ascites, hepatic encephalopathy status post large-volume paracentesis Acute metabolic encephalopathy improved due to Acute hepatic encephalopathy and hyponatremia Pneumonia with Klebsiella. Continue ceftriaxone Ileus status post decompressive colonoscopy. Remains on NG tube to suction On TPN Surgery following Advancement of diet as per surgery Hypomagnesemia and hypokalemia Replaced Type 2 diabetes. On lispro sliding scale Morbid obesity/CAT Continue CPAP Alcohol On thiamine and folate Other chronic medical conditions Dyslipidemia. Abnormal thyroid stimulating hormone (TSH). Chronic low back pain. Tobacco abuse with nicotine dependence. Hypertension Carotid artery disease 50 to 69% right internal carotid artery stenosis 16 to 49% right and left common carotid gastroesophageal reflux disease lumbar disc disease internal hemorrhoids Urethral meatal dilation cystoscopy Plan/VTE VTE Prophylaxis Ordered?: Yes VS, I&O, 24H, Fishbone Vital Signs/I&O Vital Signs Date Time Temp Pulse Resp B/P (MAP) Pulse Ox O2 Delivery O2 Flow Rate FiO2 12/29/20 08:11 98.1 108 20 135/67 (89) 96 Nasal Cannula 2.0 l I&O- Last 24 Hours up to 6 AM 12/29/20 06:00 Intake Total 3770 ml Output Total 1800 ml Balance 1970 ml Laboratory Data 24H LABS Laboratory Tests 2 12/28/20 11:57: Bedside Glucose (Misc Panel) 160H 12/28/20 17:23: Bedside Glucose (Misc Panel) 126H 12/28/20 23:55: Bedside Glucose (Misc Panel) 155H 12/29/20 05:07: Immature Granulocyte % (Auto) 0.9, Neutrophils (%) (Auto) 73.8H, Lymphocytes (%) (Auto) 13.6L, Monocytes (%) (Auto) 11.0H, Eosinophils (%) (Auto) 0.4, Basophils (%) (Auto) 0.3, Neutrophils # (Auto) 8.5, Lymphocytes # (Auto) 1.6, Monocytes # (Auto) 1.3H, Eosinophils # (Auto) 0.1, Basophils # (Auto) 0.0, Nucleated Red Blood Cells % (auto) 0.0, Anion Gap 6L, Glomerular Filtration Rate > 60.0, Calcium Level 8.5, Phosphorus Level 2.8#, Magnesium Level 1.6L, Total Bilirubin 1.2H, Direct Bilirubin 0.8H, Aspartate Amino Transf (AST/SGOT) 45H, Alanine Aminotransferase (ALT/SGPT) 29, Alkaline Phosphatase 246H, Total Protein 7.2, Albumin 2.3L, Albumin/Globulin Ratio 0.5 CBC/BMP Laboratory Tests 12/29/20 05:07 Microbiology Microbiology 12/26/20 Gram Stain - Final, Resulted 12/26/20 Sputum Culture - Preliminary, Resulted Klebsiella Pneumoniae 12/25/20 Blood Culture - Preliminary, Resulted No Growth after 72 hours. All specime... 12/25/20 Blood Culture - Preliminary, Resulted No Growth after 72 hours. All specime... 12/23/20 Acid Fast Stain, Received Pending 12/23/20 Mycobacterial Culture, Received Pending 12/23/20 Fungal Smear, Received Pending 12/23/20 Fungal Culture, Received Pending 12/23/20 Gram Stain - Final, Complete 12/23/20 Body Fluid Culture - Final, Complete 12/22/20 Respiratory Virus Panel (PCR) ([facility]) - Final, Complete Myriam Richey MD Dec 29, 2020 10:49
[2020-12-29] MEDS: cefTRIAXone SOD 2 GM in D5W MINI-BAG PLUS 50 ML IV SCH (12:14)
[2020-12-29] MEDS: LEVALBUTEROL 1.25 MG/0.5 ML CONCENTRATE NEB INH SCH ×2 (13:12→20:19)
[2020-12-29 14:45] VITALS: BP 132/85
[2020-12-29 17:07] LABS: BODY FLUID CULTURE Not indicated. (.); LEGIONELLA ANTIGEN URINE Negative (Negative); ORGANISM ID Not indicated. (.); SPECIMEN SOURCE Urine (.); URINE STREP PNEUMONIAE ANTIGEN Negative (Negative)
[2020-12-29] MEDS ORDERED: AMINO AC IV SCH (18:00)
[2020-12-29] MEDS ORDERED: DEX IV SCH (18:00)
[2020-12-29] MEDS ORDERED: ELECTROLYTE IV SCH (18:00)
[2020-12-29] MEDS ORDERED: CALC IV SCH (18:00)
[2020-12-29] MEDS ORDERED: INSULIN HUMAN REGULAR IV SCH (18:00)
[2020-12-29] MEDS ORDERED: HumaLOG INSULIN (NovoLOG) PER UNIT SC SCH (18:00)
[2020-12-29] MEDS: FAT EMULSION IV 250 ML IV SCH ×2 (18:15→18:18)
--- NOTE | 2020-12-29 20:08 | IPN ---
PROGRESS NOTE DATE: 12/29/2020 SUBJECTIVE: Mr. Gunter is seen this morning on his bedside. He is feeling somewhat better and reports that he has been passing some flatus. His abdomen is till distended and he still has a nasogastric tube in place. He is receiving TPN. PHYSICAL EXAMINATION: VITALS: Temperature 98 degrees Fahrenheit, heart rate 108 per minute, respiratory rate 20 per minute, blood pressure 135/67 mmHg, oxygen saturation 96% on 2 liters oxygen. INTAKE/OUTPUT: Records from yesterday are positive by 2.27 liters. HEENT: Head atraumatic. Neck supple, JVD difficult to be assessed. HEART: Heart sounds are regular. LUNGS: Diminished breath sounds bilaterally. ABDOMEN: Distended and firm, bowel sounds are very hypoactive. EXTREMITIES: Increased edema on lower extremities. He has no cyanosis or clubbing. NEUROLOGIC: He is awake, alert and at his baseline mentation. LABORATORY DATA: Today's labs show WBC 11.5, hemoglobin 9.9, hematocrit 29.5. Sodium 131, potassium 3.4, BUN 9, creatinine 0.71. Glucose 144 and calcium 8.5. PROBLEMS: 1. Hyponatremia: Sodium level has remained stable now. This can probably improve further with some diuresis. 2. Hypokalemia: Related to no oral intake. He is receiving TPN and potassium content can be adjusted to improve his potassium level. 3. Hypervolemia: Patient has significant peripheral edema with positive fluid balance. I will recommend to use diuretic for mild negative fluid balance. We will need to correct his hypokalemia first. 4. Ileus: Patient continues to have abdominal distention with ileus. He is receiving TPN for nutrition and still has a nasogastric tube in place. From a renal standpoint, the patient seems to be doing well and I am signing off his case. Please do not hesitate to call me back should you need any further assistance.
[2020-12-29 20:50] VITALS: BP 140/76
[2020-12-30] MEDS: HumaLOG INSULIN (NovoLOG) PER UNIT SC SCH ×4 (00:21→18:12)
[2020-12-30] MEDS: METOCLOPRAMIDE INJ 10MG/2ML VIAL (J2765 PER 1) IV SCH ×4 (00:21→18:13)
[2020-12-30 06:00] VITALS: BP 133/82
[2020-12-30] MEDS: SODIUM CHLORIDE 0.9% INJ 10 ML SYR IV SCH ×2 (07:03→18:13)
[2020-12-30] MEDS: LEVALBUTEROL 1.25 MG/0.5 ML CONCENTRATE NEB INH SCH ×2 (07:18→20:00)
[2020-12-30 08:15] LABS: BASO % 0.3 % (0.0-1.0); EOS # 0.1 10^3/uL (0.0-0.5); EOS % 0.4 % (0.0-3.0); HEMATOCRIT 29.9 % (42.0-52.0); LYMPH # 1.5 10^3/uL (1.5-5.0); LYMPH % 12.8 % (24.0-44.0); MEAN CORPUSCULAR HEMOGLOBIN 30.4 pg (27.0-33.0); MEAN CORPUSCULAR HGB CONC 33.4 g/dl (32.0-36.5); MEAN CORPUSCULAR VOLUME 90.9 fl (80.0-96.0); MONO # 1.3 10^3/uL (0.0-0.8); MONO % 11.5 % (2.0-8.0); NEUTROPHILS # 8.5 10^3/uL (1.5-8.5); NEUTROPHILS % 74.4 % (36.0-66.0); PLATELET COUNT, AUTOMATED 189 10^3/uL (150-450); RED BLOOD COUNT 3.29 10^6/uL (4.30-6.10); WHITE BLOOD COUNT 11.4 10^3/uL (4.0-10.0)
[2020-12-30 08:45] LABS: ALBUMIN 2.2 GM/DL (3.2-5.2); ALT/SGPT 24 U/L (12-78); BILIRUBIN,DIRECT 0.9 MG/DL (0.0-0.2); BILIRUBIN,TOTAL 1.2 MG/DL (0.2-1.0); BLOOD UREA NITROGEN 10 MG/DL (7-18); CALCIUM LEVEL 8.9 MG/DL (8.5-10.1); CARBON DIOXIDE LEVEL 31 MEQ/L (21-32); CHLORIDE LEVEL 95 MEQ/L (98-107); CREATININE FOR GFR 0.69 MG/DL (0.70-1.30); GLOMERULAR FILTRATION RATE > 60.0 (>60); GLUCOSE, FASTING 149 MG/DL (70-100); MAGNESIUM LEVEL 1.6 MG/DL (1.8-2.4); POTASSIUM SERUM 3.2 MEQ/L (3.5-5.1); SODIUM LEVEL 132 MEQ/L (136-145); TOTAL PROTEIN 6.5 GM/DL (6.4-8.2)
--- NOTE | 2020-12-30 09:19 | IPNPDOC ---
Subjective General Date/Time Seen The patient was seen on 12/30/20 at 09:16. Subject Chief Complaint/History The patient is a 45-year-old male admitted with a reason for visit of Hyponatremia and decompensated liver cirrhosis. Today, reports improved abdomen. He is anxious to advance his diet and would like NG tube removed. Denies abd pain, chest pain, SOB. Denies difficulty urinating, moving bowels. Current Medications Current Medications Current Medications Medications (Trade) Dose Ordered Sig/Jessica Route PRN Reason Start Time Stop Time Status Last Admin Dose Admin Amino Ac/Electrol/ Dextrose/Calcium 2,000 ml @ 80 mls/hr ONCE@1800 IV 12/27/20 18:00 12/28/20 17:59 DC 12/27/20 17:21 Ceftriaxone Sodium 2 gm/ Dextrose 50 ml @ 100 mls/hr Q24H IV 12/28/20 11:00 12/29/20 12:14 Dextrose (Dextrose 50%) 25 ml ASDIRECTED PRN IV SEE LABEL COMMENTS 12/22/20 18:45 Doxycycline Hyclate 100 mg/ Dextrose 100 ml @ 100 mls/hr Q12H IV 12/26/20 09:00 12/28/20 12:57 DC 12/28/20 11:14 Enoxaparin Sodium (Lovenox) 40 mg DAILY SC 12/23/20 09:00 12/29/20 08:59 Fat Emulsion Intravenous 250 ml @ 20 mls/hr ONCE@1800 IV 12/27/20 18:00 12/28/20 06:29 DC 12/27/20 17:21 Fat Emulsion Intravenous 250 ml @ 20 mls/hr ONCE@1800 IV 12/28/20 18:00 12/29/20 06:29 DC 12/28/20 20:21 Fat Emulsion Intravenous 250 ml @ 20 mls/hr ONCE@1800 IV 12/29/20 18:00 12/30/20 06:29 DC 12/29/20 18:18 Fluticasone Propionate (Flonase 0.05% Nasal [place]) 2 spray DAILY NARES 12/26/20 18:00 12/29/20 09:00 Folic Acid (Folic Acid) 1 mg DAILY NG 12/26/20 09:00 12/29/20 08:57 Folic Acid (Folic Acid) 1 mg DAILY PO 12/23/20 09:00 12/26/20 08:24 DC 12/25/20 09:55 Furosemide 250 mg/ Dextrose 250 ml @ 10 mls/hr Q24H IV 12/23/20 15:00 12/25/20 17:13 DC 12/25/20 10:37 Furosemide 250 mg/ Dextrose 250 ml @ 5 mls/hr Q24H IV 12/22/20 20:00 12/22/20 19:27 DC Furosemide 250 mg/ Dextrose 250 ml @ 5 mls/hr Q24H IV 12/22/20 20:00 12/23/20 08:44 DC 12/23/20 04:12 Glucagon (Glucagon) 1 mg ASDIRECTED PRN SC SEE LABEL COMMENTS 12/22/20 18:45 Glucose (Glucose) 16 GM ASDIRECTED PRN PO SEE LABEL COMMENTS 12/22/20 18:45 Heparin Sodium (Heparin (Flush)) 200 units ASDIRECTED PRN IV SEE LABEL COMMENTS 12/23/20 18:20 Heparin Sodium (Heparin (Flush)) 200 units PICC IV 12/24/20 06:00 12/30/20 07:03 Home Med (Home Med List Complete!) ASDIRECTED XX 12/22/20 19:00 12/22/20 19:10 DC Insulin Human Lispro (HumaLOG INSULIN) SEE PROTOCOL TABLE AC SC 12/23/20 07:30 12/25/20 12:37 DC Insulin Human Lispro (HumaLOG INSULIN) SEE PROTOCOL TABLE Q6H ID 12/25/20 12:00 12/30/20 07:03 Insulin Human Lispro (HumaLOG INSULIN) SEE PROTOCOL TABLE QHS ID 12/22/20 21:00 12/25/20 12:37 DC Insulin Human Lispro (HumaLOG INSULIN) See Protocol Table Q6H ID 12/28/20 18:00 12/29/20 12:01 Cancel Insulin Human Lispro (HumaLOG INSULIN) See Protocol Table Q6H ID 12/29/20 18:00 12/29/20 18:21 DC Insulin Human Regular 5 units/ Amino Ac/Electrol/ Dextrose/Calcium 2,000.05 ml @ 80 mls/hr ONCE@1800 IV 12/29/20 18:00 12/30/20 17:59 12/29/20 18:18 Lactulose (Cephulac) 30 ml QID NG 12/26/20 09:00 10/5/21 22:08 Lactulose (Cephulac) 30 ml QID PO 12/22/20 21:00 12/25/20 12:42 DC 12/25/20 09:54 Lactulose (Cephulac) 30 ml QID PO 12/26/20 09:00 12/26/20 09:10 DC Levalbuterol HCl (Xopenex Neb) 0.63 mg RTID INH 12/29/20 14:00 12/30/20 07:18 Levalbuterol HCl (Xopenex Neb) 1.25 mg Q1HP PRN INH SHORTNESS OF BREATH 12/25/20 07:10 12/28/20 15:56 Magnesium Oxide (Mag-Ox) 400 mg BID PO 12/23/20 21:00 12/25/20 09:55 DC 12/24/20 21:10 Magnesium Oxide (Mag-Ox) 800 mg BID NG 12/26/20 09:00 12/29/20 22:08 Magnesium Oxide (Mag-Ox) 800 mg BID PO 12/25/20 09:00 12/26/20 08:24 DC 12/25/20 10:35 Metoclopramide HCl (REGLAN INJection) 10 mg Q6H IV 12/25/20 12:00 12/30/20 07:02 Midodrine (Proamatine) 10 mg 08,12,16 PO 12/23/20 08:00 12/25/20 13:45 DC 12/25/20 08:27 Multivitamins (Fruity Chews-Children'S) 1 tab DAILY NG 12/27/20 09:00 12/29/20 08:57 Multivitamins (Theragram-M) 1 tab DAILY NG 12/26/20 09:00 12/26/20 10:26 DC 12/26/20 09:55 Multivitamins (Theragram-M) 1 tab DAILY PO 12/23/20 09:00 12/26/20 08:24 DC 12/24/20 09:48 Multivitamins 10 ml/Zinc/Copper/ Manganese/ Selenium 1 ml/ Amino Ac/Electrol/ Dextrose/Calcium 2,011 ml @ 80 mls/hr ONCE@1800 IV 12/28/20 18:00 12/29/20 17:59 DC 12/28/20 18:00 Nicotine (Nicoderm Cq 21mg) 1 patch DAILY TD 12/23/20 09:00 12/29/20 08:56 Norepinephrine Bitartrate 16 mg/ Dextrose 500 ml @ 18.75 mls/ hr Q24H IV 12/25/20 21:00 12/26/20 00:15 DC Octreotide Acetate (SandoSTATIN) 100 mcg Q8H SC 12/23/20 14:00 12/25/20 12:41 DC 12/25/20 05:55 Ondansetron HCl (ZOFRAN INJection) 4 mg Q4HP PRN IV NAUSEA OR VOMITING 12/27/20 11:20 12/27/20 13:00 DC Pantoprazole Sodium (Protonix) 40 mg BID IV 12/23/20 09:00 12/29/20 22:07 Piperacillin Sod/ Tazobactam Sod 3.375 gm/Dextrose 50 ml @ 50 mls/hr Q6H IV 12/25/20 13:00 12/27/20 18:17 DC 12/27/20 14:07 Piperacillin Sod/ Tazobactam Sod 3.375 gm/Dextrose 50 ml @ 50 mls/hr Q6H IV 12/27/20 20:00 12/28/20 10:44 DC 12/28/20 10:11 Simethicone (Mylicon) 120 mg QID NG 12/26/20 17:00 12/29/20 22:07 Simethicone (Mylicon) 120 mg QID PO 12/26/20 13:00 12/26/20 14:14 DC 12/26/20 13:01 Sodium Chloride 100 ml @ 25 mls/hr Q4H IV 12/24/20 09:00 12/24/20 12:59 DC 12/24/20 09:50 Sodium Chloride 100 ml @ 25 mls/hr Q4H IV 12/24/20 18:00 12/24/20 21:59 DC 12/24/20 16:38 Sodium Chloride 150 ml @ 25 mls/hr Q6H IV 12/25/20 05:00 12/25/20 07:10 DC 12/25/20 05:22 Sodium Chloride 1,000 ml @ 75 mls/hr [id number] IV 12/27/20 11:20 12/27/20 13:00 DC Sodium Chloride (Saline Lock Flush) 10 ml ASDIRECTED PRN IV SEE LABEL COMMENTS 12/23/20 18:20 Sodium Chloride (Saline Lock Flush) 10 ml PICC IV 12/24/20 06:00 12/30/20 07:03 Sucralfate (Carafate) 1 gm ACHS PO 12/23/20 07:30 12/25/20 12:31 DC 12/24/20 21:10 Thiamine HCl (Thiamine HCl) 100 mg DAILY NG 12/26/20 09:00 12/29/20 08:57 Thiamine HCl (Thiamine HCl) 100 mg DAILY PO 12/23/20 09:00 12/26/20 08:24 DC 12/25/20 09:55 Vancomycin HCl 1000 mg/IV Miscellaneous Supplies 1 each/ Sodium Chloride 270 ml @ 270 mls/hr Q8H IV 12/26/20 07:15 12/26/20 10:02 DC Allergies Coded Allergies: No Known Allergies (Unverified , 02/15/19) Objective Physical Examination Examination GENERAL APPEARANCE:Patient seen, sitting on edge of bed, awake, alert, and oriented. Comfortable, in no acute distress SKIN: Warm and moist HEENT: Normocephalic, atraumatic. [place] palpebral conjunctiva, anicteric sclerae. Lips and mucosa appear dry NECK: Supple, no thyromegaly. No obvious jugular venous distention LUNGS: Clear to auscultation bilaterally. No wheezing appreciated HEART: No chest wall abnormalities. Regular rate and rhythm with no murmurs appreciated ABDOMEN: Abdomen is hard, distended, tympanitic. No peritoneal signs, no rebound tenderness. No noticeable guarding. Nontender, no grimacing with palpation. No masses appreciated. EXTREMITIES: Extremities have no deformities. 4+ pitting edema b/l LE identified. Vital Signs Vital Signs Date Time Temp Pulse Resp B/P (MAP) Pulse Ox O2 Delivery O2 Flow Rate FiO2 12/30/20 06:00 99.0 98 20 133/82 (99) 93 Nasal Cannula 2.0 I&Os I&O- Last 24 Hours up to 6 AM 12/30/20 05:59 Intake Total 3580 ml Output Total 2175 ml Balance 1405 ml Laboratory Data Labs 24H Laboratory Tests 2 12/29/20 12:06: Bedside Glucose (Misc Panel) 142H 12/29/20 17:37: Bedside Glucose (Misc Panel) 147H 12/30/20 00:15: Bedside Glucose (Misc Panel) 150H 12/30/20 06:56: Bedside Glucose (Misc Panel) 159H 12/30/20 08:00: Immature Granulocyte % (Auto) 0.6, Neutrophils (%) (Auto) 74.4H, Lymphocytes (%) (Auto) 12.8L, Monocytes (%) (Auto) 11.5H, Eosinophils (%) (Auto) 0.4, Basophils (%) (Auto) 0.3, Neutrophils # (Auto) 8.5, Lymphocytes # (Auto) 1.5, Monocytes # (Auto) 1.3H, Eosinophils # (Auto) 0.1, Basophils # (Auto) 0.0, Nucleated Red Blood Cells % (auto) 0.0, Anion Gap 6L, Glomerular Filtration Rate > 60.0, Calcium Level 8.9, Magnesium Level 1.6L, Total Bilirubin 1.2H, Direct Bilirubin 0.9H, Aspartate Amino Transf (AST/SGOT) 41H, Alanine Aminotransferase (ALT/SGPT) 24, Alkaline Phosphatase 248H, Total Protein 6.5, Albumin 2.2L, Albumin/Globulin Ratio 0.5 CBC/BMP Laboratory Tests 12/30/20 08:00 Microbiology Microbiology 12/26/20 Gram Stain - Final, Resulted 12/26/20 Sputum Culture - Preliminary, Resulted Klebsiella Pneumoniae Strep (Group F) Constellatus 12/25/20 Blood Culture - Preliminary, Resulted No Growth after 72 hours. All specime... 12/25/20 Blood Culture - Preliminary, Resulted No Growth after 72 hours. All specime... 12/23/20 Acid Fast Stain, Received Pending 12/23/20 Mycobacterial Culture, Received Pending 12/23/20 Fungal Smear, Received Pending 12/23/20 Fungal Culture, Received Pending 12/23/20 Gram Stain - Final, Complete 12/23/20 Body Fluid Culture - Final, Complete 12/22/20 Respiratory Virus Panel (PCR) ([facility]) - Final, Complete Impression 45M with decompensated liver cirrhosis found to have ascites and decreased bowel function with stable/unimproved abdominal exam despite patient's report of "feeling better." NG tube in place. Will clamp and measure residuals Q4H. Continue NPO diet. [place] catheter in place. Continue monitoring I&Os. Continue Heparin for VTE prophylaxis. Plan / VTE VTE Prophylaxis Ordered?: Yes Plan / Urinary Catheter Reason for insertion/continuin: Acute obstruct/retention Trena Neri DO Dec 30, 2020 09:19
[2020-12-30] MEDS: FLUTICASONE PROP 0.05% NASAL SPRAY 16 GM (FLONASE) NARES SCH (09:21)
[2020-12-30] MEDS: NICOTINE 21MG/24HR 1 EA TRANSDERMAL TD SCH (09:21)
[2020-12-30] MEDS: LACTULOSE 20 GM/30 ML SYRUP UD NG SCH ×4 (09:21→21:00)
[2020-12-30] MEDS: PANTOPRAZOLE 40MG VIAL (C9113 PER 1) IV SCH ×2 (09:21→21:20)
[2020-12-30] MEDS: ENOXAPARIN 40MG/0.4ML SYRINGE (J1650 PER 10MG) SC SCH (09:21)
[2020-12-30] MEDS: FOLIC ACID 1 MG TAB NG SCH (09:22)
[2020-12-30] MEDS: MULTIVITAMINS CHILDREN'S CHEWABLE TABLET NG SCH (09:22)
[2020-12-30] MEDS: SIMETHICONE 80MG CHEW TAB NG SCH ×4 (09:22→21:20)
[2020-12-30] MEDS: MAGNESIUM OXIDE 400MG TAB (MAG-OX) NG SCH ×2 (09:22→21:20)
[2020-12-30] MEDS: THIAMINE 100 MG TAB NG SCH (09:22)
[2020-12-30] MEDS: cefTRIAXone SOD 2 GM in D5W MINI-BAG PLUS 50 ML IV SCH (11:03)
[2020-12-30] MEDS: MAG SULF 1GM/100ML (MAG RUN) 1 GM in IV 1 EA IV SCH ×2 (12:08→13:15)
[2020-12-30 14:00] VITALS: BP 135/80
--- NOTE | 2020-12-30 14:06 | IPNPDOC ---
Subjective Date Seen The patient was seen on 12/30/20. Subjective Chief Complaint/HPI Feels that Bill is doing much better. Says he is having flatus and bowel movements are mostly liquid stools. He is hungry and would like to advance his diet. Patient was seen in follow-up with by surgery today and NG tube has been clamped every 4 hours to be opened and monitored for residuals. Objective Physical Examination General Exam: Positive: Alert, Cooperative, No Acute Distress Eye Exam: Positive: PERRLA, Conjunctiva & lids normal, EOMI; Negative: Sclera icteric ENT Exam: Positive: Atraumatic, Mucous membr. moist/pink, Pharynx Normal Neck Exam: Positive: Supple; Negative: JVD, thyromegaly Chest Exam: Positive: Diminished (Diminished at bases), Other (Bilateral basal crackle); Negative: Rales, Rhonchi, Wheezing Heart Exam: Positive: Rate Normal, Regular Rhythm, Normal S1, Normal S2; Negative: Murmurs, Rubs Abdomen Exam: Positive: BS Hypoactive, Soft, Other (Distended and tympanitic); Negative: Tenderness Extremity Exam: Negative: Clubbing, Cyanosis, Edema Assessment /Plan Assessment This is a 45-year-old male with history of alcoholic liver cirrhosis, tobacco abuse, presented with confusion, difficulty concentrating, anasarca, and increasing abdominal distention, found to have sodium of 108. Admitted for hyponatremia, metabolic encephalopathy and decompensated cirrhosis of liver. Hospital course was complicated by Klebsiella pneumonia, bowel Ileus s/p decompressive colonoscopy remains on NG tube and on TPN. Ileus status post decompressive colonoscopy. On TPN Surgery following. Remains on NG tube which has been clamped and opened every 4 hours and to check for residual. Remains n.p.o. at present Advancement of diet as per surgery Hyponatremia Improved due to beer potomania and alcoholic liver cirrhosis. Appreciate nephrology consultation Decompensated alcoholic liver cirrhosis with portal hypertension, recurrent ascites, hepatic encephalopathy status post large-volume paracentesis. 6850 mL was removed. Acute metabolic encephalopathy improved due to Acute hepatic encephalopathy and hyponatremia Pneumonia with Klebsiella. Continue ceftriaxone. Will finish total of 7 days of antibiotics on 01/01/2021 Hypomagnesemia and hypokalemia Replaced Type 2 diabetes. On lispro sliding scale Morbid obesity/CAT Continue CPAP Alcohol On thiamine and folate Other chronic medical conditions Dyslipidemia. Abnormal thyroid stimulating hormone (TSH). Chronic low back pain. Tobacco abuse with nicotine dependence. Hypertension Carotid artery disease 50 to 69% right internal carotid artery stenosis 16 to 49% right and left common carotid gastroesophageal reflux disease lumbar disc disease internal hemorrhoids Urethral meatal dilation cystoscopy Plan/VTE VTE Prophylaxis Ordered?: Yes Plan/Urinary Catheter Reason for insertion/continuin: Acute obstruct/retention VS, I&O, 24H, Fishbone Vital Signs/I&O Vital Signs Date Time Temp Pulse Resp B/P (MAP) Pulse Ox O2 Delivery O2 Flow Rate FiO2 12/30/20 06:00 99.0 98 20 133/82 (99) 93 Nasal Cannula 2.0 I&O- Last 24 Hours up to 6 AM 12/30/20 06:00 Intake Total 2980 ml Output Total 1790 ml Balance 1190 ml Laboratory Data 24H LABS Laboratory Tests 2 12/29/20 17:37: Bedside Glucose (Misc Panel) 147H 12/30/20 00:15: Bedside Glucose (Misc Panel) 150H 12/30/20 06:56: Bedside Glucose (Misc Panel) 159H 12/30/20 08:00: Immature Granulocyte % (Auto) 0.6, Neutrophils (%) (Auto) 74.4H, Lymphocytes (%) (Auto) 12.8L, Monocytes (%) (Auto) 11.5H, Eosinophils (%) (Auto) 0.4, Basophils (%) (Auto) 0.3, Neutrophils # (Auto) 8.5, Lymphocytes # (Auto) 1.5, Monocytes # (Auto) 1.3H, Eosinophils # (Auto) 0.1, Basophils # (Auto) 0.0, Nucleated Red Blood Cells % (auto) 0.0, Anion Gap 6L, Glomerular Filtration Rate > 60.0, Calci um Level 8.9, Magnesium Level 1.6L, Total Bilirubin 1.2H, Direct Bilirubin 0.9H, Aspartate Amino Transf (AST/SGOT) 41H, Alanine Aminotransferase (ALT/SGPT) 24, Alkaline Phosphatase 248H, Total Protein 6.5, Albumin 2.2L, Albumin/Globulin Ratio 0.5 12/30/20 11:30: Bedside Glucose (Misc Panel) 161H CBC/BMP Laboratory Tests 12/30/20 08:00 Microbiology Microbiology 12/26/20 Gram Stain - Final, Resulted 12/26/20 Sputum Culture - Preliminary, Resulted Klebsiella Pneumoniae Strep (Group F) Constellatus 12/25/20 Blood Culture - Preliminary, Resulted No Growth after 72 hours. All specime... 12/25/20 Blood Culture - Preliminary, Resulted No Growth after 72 hours. All specime... 12/23/20 Acid Fast Stain, Received Pending 12/23/20 Mycobacterial Culture, Received Pending 12/23/20 Fungal Smear, Received Pending 12/23/20 Fungal Culture, Received Pending 12/23/20 Gram Stain - Final, Complete 12/23/20 Body Fluid Culture - Final, Complete 12/22/20 Respiratory Virus Panel (PCR) ([facility]) - Final, Complete Myriam Richey MD Dec 30, 2020 14:06
[2020-12-30] MEDS: KCL 10MEQ/100ML SWI (KRUN) 10 MEQ in IV 1 EA IV SCH ×2 (14:37→15:48)
[2020-12-30] MEDS ORDERED: FAT EMULSION IV 250 ML IV SCH (18:00)
[2020-12-30] MEDS ORDERED: HumaLOG INSULIN (NovoLOG) PER UNIT SC SCH (18:00)
[2020-12-30] MEDS ORDERED: MULTIVITAMIN -ADULT INJECTION 10 ML, ZINC/COPPER/MANGANESE/SELENIUM 1 ML, POTASSIUM CHL... IV SCH ×5 (18:00)
[2020-12-30 21:30] VITALS: BP 135/80
[2020-12-31] MEDS: METOCLOPRAMIDE INJ 10MG/2ML VIAL (J2765 PER 1) IV SCH ×5 (00:09→23:57)
[2020-12-31] MEDS: SODIUM CHLORIDE 0.9% INJ 10 ML SYR IV PRN ×2 (00:10→21:45)
[2020-12-31 06:00] VITALS: BP 139/78
[2020-12-31] MEDS: SODIUM CHLORIDE 0.9% INJ 10 ML SYR IV SCH ×2 (06:07→17:42)
[2020-12-31] MEDS: HumaLOG INSULIN (NovoLOG) PER UNIT SC SCH ×5 (06:08→23:50)
[2020-12-31 07:11] LABS: BASO % 0.3 % (0.0-1.0); EOS # 0.1 10^3/uL (0.0-0.5); EOS % 1.1 % (0.0-3.0); HEMATOCRIT 28.6 % (42.0-52.0); HEMOGLOBIN 9.4 g/dl (13.5-17.5); LYMPH # 1.4 10^3/uL (1.5-5.0); LYMPH % 12.4 % (24.0-44.0); MEAN CORPUSCULAR HEMOGLOBIN 29.6 pg (27.0-33.0); MEAN CORPUSCULAR HGB CONC 32.9 g/dl (32.0-36.5); MEAN CORPUSCULAR VOLUME 89.9 fl (80.0-96.0); MONO # 1.3 10^3/uL (0.0-0.8); MONO % 10.9 % (2.0-8.0); NEUTROPHILS # 8.7 10^3/uL (1.5-8.5); NEUTROPHILS % 74.7 % (36.0-66.0); PLATELET COUNT, AUTOMATED 186 10^3/uL (150-450); RED BLOOD COUNT 3.18 10^6/uL (4.30-6.10); WHITE BLOOD COUNT 11.6 10^3/uL (4.0-10.0)
[2020-12-31 07:40] LABS: ALBUMIN 2.2 GM/DL (3.2-5.2); ALT/SGPT 24 U/L (12-78); BILIRUBIN,TOTAL 1.4 MG/DL (0.2-1.0); BLOOD UREA NITROGEN 11 MG/DL (7-18); CALCIUM LEVEL 8.5 MG/DL (8.5-10.1); CARBON DIOXIDE LEVEL 30 MEQ/L (21-32); CHLORIDE LEVEL 94 MEQ/L (98-107); CREATININE FOR GFR 0.63 MG/DL (0.70-1.30); GLOMERULAR FILTRATION RATE > 60.0 (>60); GLUCOSE, FASTING 145 MG/DL (70-100); MAGNESIUM LEVEL 1.7 MG/DL (1.8-2.4); POTASSIUM SERUM 3.2 MEQ/L (3.5-5.1); SODIUM LEVEL 133 MEQ/L (136-145); TOTAL PROTEIN 6.6 GM/DL (6.4-8.2)
[2020-12-31 08:00] VITALS: BP 144/72
[2020-12-31] MEDS: LEVALBUTEROL 1.25 MG/0.5 ML CONCENTRATE NEB INH SCH ×3 (08:00→20:00)
[2020-12-31] MEDS ORDERED: MULTIVITAMINS CHILDREN'S CHEWABLE TABLET PO SCH (09:00)
--- NOTE | 2020-12-31 10:24 | IPNPDOC ---
Subjective Date Seen The patient was seen on 12/31/20. Subjective Chief Complaint/HPI Continues to have loose bowel movements, says passing good amount of flatus, denies any abdominal pain. Says her his abdominal distention is better. No fever or chills. No acute overnight events. Objective Physical Examination General Exam: Positive: Alert, Cooperative, No Acute Distress Eye Exam: Positive: PERRLA, Conjunctiva & lids normal, EOMI; Negative: Sclera icteric ENT Exam: Positive: Atraumatic, Mucous membr. moist/pink, Pharynx Normal Neck Exam: Positive: Supple; Negative: JVD, thyromegaly Chest Exam: Positive: Diminished (Diminished at bases), Other (Bilateral basal crackle); Negative: Rales, Rhonchi, Wheezing Heart Exam: Positive: Rate Normal, Regular Rhythm, Normal S1, Normal S2; Negative: Murmurs, Rubs Abdomen Exam: Positive: BS Hypoactive, Soft, Other (Distended and tympanitic); Negative: Tenderness Extremity Exam: Negative: Clubbing, Cyanosis, Edema Assessment /Plan Assessment This is a 45-year-old male with history of alcoholic liver cirrhosis, tobacco abuse, presented with confusion, difficulty concentrating, anasarca, and increasing abdominal distention, found to have sodium of 108. Admitted for hyponatremia, metabolic encephalopathy and decompensated cirrhosis of liver. Hospital course was complicated by Klebsiella pneumonia, bowel Ileus s/p decompressive colonoscopy remains on NG tube and on TPN. Ileus status post decompressive colonoscopy. On TPN Surgery following. Remains on NG tube which has been clamped and opened every 4 hours and to check for residual. Remains n.p.o. at present Advancement of diet as per surgery Hyponatremia Improved due to beer potomania and alcoholic liver cirrhosis. Appreciate nephrology consultation Decompensated alcoholic liver cirrhosis with portal hypertension, recurrent ascites, hepatic encephalopathy status post large-volume paracentesis. 6850 mL was removed. Acute metabolic encephalopathy improved due to Acute hepatic encephalopathy and hyponatremia Pneumonia with Klebsiella and Streptococcus constellatus Continue ceftriaxone. Will finish total of 7 days of antibiotics on 01/01/2021 Hypomagnesemia and hypokalemia Replaced Type 2 diabetes. On lispro sliding scale Morbid obesity/CAT Continue CPAP Alcohol use disorder On thiamine and folate and multivitamin Other chronic medical conditions Dyslipidemia. Abnormal thyroid stimulating hormone (TSH). Chronic low back pain. Tobacco abuse with nicotine dependence. Hypertension Carotid artery disease 50 to 69% right internal carotid artery stenosis 16 to 49% right and left common carotid gastroesophageal reflux disease lumbar disc disease internal hemorrhoids Urethral meatal dilation cystoscopy Plan/VTE VTE Prophylaxis Ordered?: Yes Plan/Urinary Catheter Reason for insertion/continuin: Acute obstruct/retention VS, I&O, 24H, Fishbone Vital Signs/I&O Vital Signs Date Time Temp Pulse Resp B/P (MAP) Pulse Ox O2 Delivery O2 Flow Rate FiO2 12/31/20 08:00 2.0 12/31/20 06:00 98.6 98 18 139/78 (98) 91 Nasal Cannula I&O- Last 24 Hours up to 6 AM 12/31/20 05:59 Intake Total 2635 ml Output Total 1340 ml Balance 1295 ml Laboratory Data 24H LABS Laboratory Tests 2 12/30/20 11:30: Bedside Glucose (Misc Panel) 161H 12/30/20 17:13: Bedside Glucose (Misc Panel) 124H 12/30/20 23:55: Bedside Glucose (Misc Panel) 137H 12/31/20 05:52: Bedside Glucose (Misc Panel) 150H 12/31/20 06:47: Immature Granulocyte % (Auto) 0.6, Neutrophils (%) (Auto) 74.7H, Lymphocytes (%) (Auto) 12.4L, Monocytes (%) (Auto) 10.9H, Eosinophils (%) (Auto) 1.1, Basophils (%) (Auto) 0.3, Neutrophils # (Auto) 8.7H, Lymphocytes # (Auto) 1.4L, Monocytes # (Auto) 1.3H, Eosinophils # (Auto) 0.1, Basophils # (Auto) 0.0, Nucleated Red Blood Cells % (auto) 0.0, Anion Gap 9, Glomerular Filtration Rate > 60.0, Calcium Level 8.5, Magnesium Level 1.7L, Total Bilirubin 1.4H, Direct Bilirubin 1.0H, Aspartate Amino Transf (AST/SGOT) 40H, Alanine Aminotransferase (ALT/SGPT) 24, Alkaline Phosphatase 216H, Total Protein 6.6, Albumin 2.2L, Albumin/Globulin Ratio 0.5 CBC/BMP Laboratory Tests 12/31/20 06:47 Microbiology Microbiology 12/26/20 Gram Stain - Final, Complete 12/26/20 Sputum Culture - Final, Complete Klebsiella Pneumoniae Streptococcus Constellatus 12/25/20 Blood Culture - Final, Complete NO GROWTH AFTER 5 DAYS 12/25/20 Blood Culture - Final, Complete NO GROWTH AFTER 5 DAYS 12/23/20 Acid Fast Stain, Received Pending 12/23/20 Mycobacterial Culture, Received Pending 12/23/20 Fungal Smear, Received Pending 12/23/20 Fungal Culture, Received Pending 12/23/20 Gram Stain - Final, Complete 12/23/20 Body Fluid Culture - Final, Complete 12/22/20 Respiratory Virus Panel (PCR) ([facility]) - Final, Complete Myriam Richey MD Dec 31, 2020 10:24
--- NOTE | 2020-12-31 10:30 | IPNPDOC ---
Subjective General Date/Time Seen The patient was seen on 12/31/20 at 10:21. Subject Chief Complaint/History The patient is a 45-year-old male admitted with a reason for visit of Hyponatremia and decompensated liver cirrhosis w/ ascites, ileus. Today, patient tells me he is feeling well and would like his diet advanced. 12/30, NG tube was clamped and residuals measured with 5mL residual in afternoon and 0 mL residual in the evening. Patient reports watery BM, flatus. Denies n/v, abd pain, chest pain, SOB. Current Medications Current Medications Current Medications Medications (Trade) Dose Ordered Sig/Jessica Route PRN Reason Start Time Stop Time Status Last Admin Dose Admin Amino Ac/Electrol/ Dextrose/Calcium 2,000 ml @ 80 mls/hr ONCE@1800 IV 12/27/20 18:00 12/28/20 17:59 DC 12/27/20 17:21 Ceftriaxone Sodium 2 gm/ Dextrose 50 ml @ 100 mls/hr Q24H IV 12/28/20 11:00 01/01/21 18:00 12/30/20 11:03 Dextrose (Dextrose 50%) 25 ml ASDIRECTED PRN IV SEE LABEL COMMENTS 12/22/20 18:45 Doxycycline Hyclate 100 mg/ Dextrose 100 ml @ 100 mls/hr Q12H IV 12/26/20 09:00 12/28/20 12:57 DC 12/28/20 11:14 Enoxaparin Sodium (Lovenox) 40 mg DAILY SC 12/23/20 09:00 12/30/20 09:21 Fat Emulsion Intravenous 250 ml @ 20 mls/hr ONCE@1800 IV 12/27/20 18:00 12/28/20 06:29 DC 12/27/20 17:21 Fat Emulsion Intravenous 250 ml @ 20 mls/hr ONCE@1800 IV 12/28/20 18:00 12/29/20 06:29 DC 12/28/20 20:21 Fat Emulsion Intravenous 250 ml @ 20 mls/hr ONCE@1800 IV 12/29/20 18:00 12/30/20 06:29 DC 12/29/20 18:18 Fat Emulsion Intravenous 250 ml @ 20 mls/hr ONCE@1800 IV 12/30/20 18:00 12/31/20 06:29 DC 12/30/20 18:02 Fluticasone Propionate (Flonase 0.05% Nasal [place]) 2 spray DAILY NARES 12/26/20 18:00 12/30/20 09:21 Folic Acid (Folic Acid) 1 mg DAILY NG 12/26/20 09:00 12/31/20 10:16 DC 12/30/20 09:22 Folic Acid (Folic Acid) 1 mg DAILY PO 12/23/20 09:00 12/26/20 08:24 DC 12/25/20 09:55 Folic Acid (Folic Acid) 1 mg DAILY PO 01/01/21 09:00 UNV Furosemide 250 mg/ Dextrose 250 ml @ 10 mls/hr Q24H IV 12/23/20 15:00 12/25/20 17:13 DC 12/25/20 10:37 Furosemide 250 mg/ Dextrose 250 ml @ 5 mls/hr Q24H IV 12/22/20 20:00 12/22/20 19:27 DC Furosemide 250 mg/ Dextrose 250 ml @ 5 mls/hr Q24H IV 12/22/20 20:00 12/23/20 08:44 DC 12/23/20 04:12 Glucagon (Glucagon) 1 mg ASDIRECTED PRN SC SEE LABEL COMMENTS 12/22/20 18:45 Glucose (Glucose) 16 GM ASDIRECTED PRN PO SEE LABEL COMMENTS 12/22/20 18:45 Heparin Sodium (Heparin (Flush)) 200 units ASDIRECTED PRN IV SEE LABEL COMMENTS 12/23/20 18:20 12/31/20 00:10 Heparin Sodium (Heparin (Flush)) 200 units PICC IV 12/24/20 06:00 12/31/20 06:07 Home Med (Home Med List Complete!) ASDIRECTED XX 12/22/20 19:00 12/22/20 19:10 DC Insulin Human Lispro (HumaLOG INSULIN) SEE PROTOCOL TABLE AC SC 12/23/20 07:30 12/25/20 12:37 DC Insulin Human Lispro (HumaLOG INSULIN) SEE PROTOCOL TABLE Q6H SC 12/25/20 12:00 12/31/20 06:08 Insulin Human Lispro (HumaLOG INSULIN) SEE PROTOCOL TABLE QHS SC 12/22/20 21:00 12/25/20 12:37 DC Insulin Human Lispro (HumaLOG INSULIN) See Protocol Table Q6H SC 12/28/20 18:00 12/29/20 12:01 Cancel Insulin Human Lispro (HumaLOG INSULIN) See Protocol Table Q6H SC 12/29/20 18:00 12/29/20 18:21 DC Insulin Human Lispro (HumaLOG INSULIN) See Protocol Table Q6H SC 12/30/20 18:00 12/31/20 12:01 Cancel Insulin Human Regular 5 units/ Amino Ac/Electrol/ Dextrose/Calcium 2,000.05 ml @ 80 mls/hr ONCE@1800 IV 12/29/20 18:00 12/30/20 17:59 DC 12/29/20 18:18 Lactulose (Cephulac) 30 ml QID NG 12/26/20 09:00 12/31/20 08:58 DC 12/30/20 09:21 Lactulose (Cephulac) 30 ml QID PO 12/22/20 21:00 12/25/20 12:42 DC 12/25/20 09:54 Lactulose (Cephulac) 30 ml QID PO 12/26/20 09:00 12/26/20 09:10 DC Lactulose (Cephulac) 30 ml QID PO 12/31/20 09:00 Levalbuterol HCl (Xopenex Neb) 0.63 mg RTID INH 12/29/20 14:00 12/30/20 07:18 Levalbuterol HCl (Xopenex Neb) 1.25 mg Q1HP PRN INH SHORTNESS OF BREATH 12/25/20 07:10 12/28/20 15:56 Magnesium Oxide (Mag-Ox) 400 mg BID PO 12/23/20 21:00 12/25/20 09:55 DC 12/24/20 21:10 Magnesium Oxide (Mag-Ox) 800 mg BID NG 12/26/20 09:00 12/31/20 08:58 DC 12/30/20 21:20 Magnesium Oxide (Mag-Ox) 800 mg BID PO 12/25/20 09:00 12/26/20 08:24 DC 12/25/20 10:35 Magnesium Oxide (Mag-Ox) 800 mg BID PO 12/31/20 09:00 Magnesium Sulfate/ Dextrose 1 gm/IV Miscellaneous Supplies 100 ml @ 100 mls/hr Q1H IV 12/30/20 11:00 12/30/20 12:59 DC 12/30/20 13:15 Magnesium Sulfate/ Dextrose 1 gm/IV Miscellaneous Supplies 100 ml @ 100 mls/hr Q1H IV 12/31/20 11:00 12/31/20 12:59 Metoclopramide HCl (REGLAN INJection) 10 mg Q6H IV 12/25/20 12:00 12/31/20 06:07 Midodrine (Proamatine) 10 mg 08,12,16 PO 12/23/20 08:00 12/25/20 13:45 DC 12/25/20 08:27 Multivitamins (Fruity Chews-Children'S) 1 tab DAILY NG 12/27/20 09:00 12/31/20 10:16 DC 12/30/20 09:22 Multivitamins (Fruity Chews-Children'S) 1 tab DAILY PO 01/01/21 09:00 UNV Multivitamins (Theragram-M) 1 tab DAILY NG 12/26/20 09:00 12/26/20 10:26 DC 12/26/20 09:55 Multivitamins (Theragram-M) 1 tab DAILY PO 12/23/20 09:00 12/26/20 08:24 DC 12/24/20 09:48 Multivitamins 10 ml/Zinc/Copper/ Manganese/ Selenium 1 ml/ Amino Ac/Electrol/ Dextrose/Calcium 2,011 ml @ 80 mls/hr ONCE@1800 IV 12/28/20 18:00 12/29/20 17:59 DC 12/28/20 18:00 Multivitamins 10 ml/Zinc/Copper/ Manganese/ Selenium 1 ml/ Potassium Chloride 27.8 meq/ Insulin Human Regular 7 units/ Amino Ac/Electrol/ Dextrose/Calcium 2,024.97 ml @ 60 mls/hr ONCE@1800 IV 12/30/20 18:00 12/31/20 17:59 12/30/20 18:04 Nicotine (Nicoderm Cq 21mg) 1 patch DAILY TD 12/23/20 09:00 12/30/20 09:21 Norepinephrine Bitartrate 16 mg/ Dextrose 500 ml @ 18.75 mls/ hr Q24H IV 12/25/20 21:00 12/26/20 00:15 DC Octreotide Acetate (SandoSTATIN) 100 mcg Q8H SC 12/23/20 14:00 12/25/20 12:41 DC 12/25/20 05:55 Ondansetron HCl (ZOFRAN INJection) 4 mg Q4HP PRN IV NAUSEA OR VOMITING 12/27/20 11:20 12/27/20 13:00 DC Pantoprazole Sodium (Protonix) 40 mg BID IV 12/23/20 09:00 12/30/20 21:20 Piperacillin Sod/ Tazobactam Sod 3.375 gm/Dextrose 50 ml @ 50 mls/hr Q6H IV 12/25/20 13:00 12/27/20 18:17 DC 12/27/20 14:07 Piperacillin Sod/ Tazobactam Sod 3.375 gm/Dextrose 50 ml @ 50 mls/hr Q6H IV 12/27/20 20:00 12/28/20 10:44 DC 12/28/20 10:11 Potassium Chloride 10 meq/ IV Miscellaneous Supplies 100 ml @ 100 mls/hr Q1H IV 12/30/20 13:00 12/30/20 14:59 DC 12/30/20 15:48 Potassium Chloride 10 meq/ IV Miscellaneous Supplies 100 ml @ 100 mls/hr Q1H IV 12/31/20 13:00 12/31/20 14:59 Simethicone (Mylicon) 120 mg QID NG 12/26/20 17:00 12/31/20 08:58 DC 12/30/20 21:20 Simethicone (Mylicon) 120 mg QID PO 12/26/20 13:00 12/26/20 14:14 DC 12/26/20 13:01 Simethicone (Mylicon) 120 mg QID PO 12/31/20 09:00 Sodium Chloride 100 ml @ 25 mls/hr Q4H IV 12/24/20 09:00 12/24/20 12:59 DC 12/24/20 09:50 Sodium Chloride 100 ml @ 25 mls/hr Q4H IV 12/24/20 18:00 12/24/20 21:59 DC 12/24/20 16:38 Sodium Chloride 150 ml @ 25 mls/hr Q6H IV 12/25/20 05:00 12/25/20 07:10 DC 12/25/20 05:22 Sodium Chloride 1,000 ml @ 75 mls/hr [id number] IV 12/27/20 11:20 12/27/20 13:00 DC Sodium Chloride (Saline Lock Flush) 10 ml ASDIRECTED PRN IV SEE LABEL COMMENTS 12/23/20 18:20 12/31/20 00:10 Sodium Chloride (Saline Lock Flush) 10 ml PICC IV 12/24/20 06:00 12/31/20 06:07 Sucralfate (Carafate) 1 gm ACHS PO 12/23/20 07:30 12/25/20 12:31 DC 12/24/20 21:10 Thiamine HCl (Thiamine HCl) 100 mg DAILY NG 12/26/20 09:00 12/31/20 08:58 DC 12/30/20 09:22 Thiamine HCl (Thiamine HCl) 100 mg DAILY PO 12/23/20 09:00 12/26/20 08:24 DC 12/25/20 09:55 Thiamine HCl (Thiamine HCl) 100 mg DAILY PO 12/31/20 09:00 Vancomycin HCl 1000 mg/IV Miscellaneous Supplies 1 each/ Sodium Chloride 270 ml @ 270 mls/hr Q8H IV 12/26/20 07:15 12/26/20 10:02 DC Allergies Coded Allergies: No Known Allergies (Unverified , 02/15/19) Objective Physical Examination Examination GENERAL APPEARANCE:Patient seen, sitting on edge of bed, awake, alert, and oriented. Comfortable, in no acute distress SKIN: Warm and moist HEENT: Normocephalic, atraumatic. [place] palpebral conjunctiva, anicteric sclerae. Lips and mucosa appear moist. NG tube in place. NECK: Supple LUNGS: Clear to auscultation bilaterally. No wheezing appreciated HEART: No chest wall abnormalities. Regular rate and rhythm with no murmurs appreciated ABDOMEN: Abdomen is nontender, hard, distended. No grimacing with palpation. No masses appreciated. [place] catheter in place with good output. EXTREMITIES: Extremities have no deformities. 4+ pitting edema b/l LE identified. Vital Signs Vital Signs Date Time Temp Pulse Resp B/P (MAP) Pulse Ox O2 Delivery O2 Flow Rate FiO2 12/31/20 08:00 2.0 12/31/20 06:00 98.6 98 18 139/78 (98) 91 Nasal Cannula I&Os I&O- Last 24 Hours up to 6 AM 10/7/21 06:00 Intake Total 3295 ml Output Total 900 ml Balance 2395 ml Laboratory Data Labs 24H Laboratory Tests 2 12/30/20 11:30: Bedside Glucose (Misc Panel) 161H 12/30/20 17:13: Bedside Glucose (Misc Panel) 124H 12/30/20 23:55: Bedside Glucose (Misc Panel) 137H 12/31/20 05:52: Bedside Glucose (Misc Panel) 150H 12/31/20 06:47: Immature Granulocyte % (Auto) 0.6, Neutrophils (%) (Auto) 74.7H, Lymphocytes (%) (Auto) 12.4L, Monocytes (%) (Auto) 10.9H, Eosinophils (%) (Auto) 1.1, Basophils (%) (Auto) 0.3, Neutrophils # (Auto) 8.7H, Lymphocytes # (Auto) 1.4L, Monocytes # (Auto) 1.3H, Eosinophils # (Auto) 0.1, Basophils # (Auto) 0.0, Nucleated Red Blood Cells % (auto) 0.0, Anion Gap 9, Glomerular Filtration Rate > 60.0, Calcium Level 8.5, Magnesium Level 1.7L, Total Bilirubin 1.4H, Direct Bilirubin 1.0H, Aspartate Amino Transf (AST/SGOT) 40H, Alanine Aminotransferase (ALT/SGPT) 24, Alkaline Phosphatase 216H, Total Protein 6.6, Albumin 2.2L, Albumin/Globulin Ratio 0.5 CBC/BMP Laboratory Tests 12/31/20 06:47 Microbiology Microbiology 12/26/20 Gram Stain - Final, Complete 12/26/20 Sputum Culture - Final, Complete Klebsiella Pneumoniae Streptococcus Constellatus 12/25/20 Blood Culture - Final, Complete NO GROWTH AFTER 5 DAYS 12/25/20 Blood Culture - Final, Complete NO GROWTH AFTER 5 DAYS 12/23/20 Acid Fast Stain, Received Pending 12/23/20 Mycobacterial Culture, Received Pending 12/23/20 Fungal Smear, Received Pending 12/23/20 Fungal Culture, Received Pending 12/23/20 Gram Stain - Final, Complete 12/23/20 Body Fluid Culture - Final, Complete 12/22/20 Respiratory Virus Panel (PCR) (MAR[facility]) - Final, Complete Impression 45M admitted for hyponatremia and decompensated liver cirrhosis w/ ascites, found to have ileus and possible portal HTN now with stable/unimproved abdominal exam but improved bowel function. D/C NG tube. D/C NPO. Start clear liquids diet. If patient tolerates well, will consider further advancement to full liquids and, eventually, regular diet. Encourage OOB and frequent ambulation Continue Heparin for DVT prophylaxis N[place] catheter in place. Continue monitoring I&Os Plan / VTE VTE Prophylaxis Ordered?: Yes Plan / Urinary Catheter Reason for insertion/continuin: Acute obstruct/retention Trena Neri DO Dec 31, 2020 10:30
[2020-12-31] MEDS: SIMETHICONE 80MG CHEW TAB PO SCH ×4 (10:38→21:41)
[2020-12-31] MEDS: MAGNESIUM OXIDE 400MG TAB (MAG-OX) PO SCH ×2 (10:40→21:41)
[2020-12-31] MEDS: FOLIC ACID 1 MG TAB PO SCH (10:41)
[2020-12-31] MEDS: THIAMINE 100 MG TAB PO SCH (10:41)
[2020-12-31] MEDS: ENOXAPARIN 40MG/0.4ML SYRINGE (J1650 PER 10MG) SC SCH (10:42)
[2020-12-31] MEDS: PANTOPRAZOLE 40MG VIAL (C9113 PER 1) IV SCH ×2 (10:42→21:40)
[2020-12-31] MEDS: FLUTICASONE PROP 0.05% NASAL SPRAY 16 GM (FLONASE) NARES SCH (10:49)
[2020-12-31] MEDS: LACTULOSE 20 GM/30 ML SYRUP UD PO SCH ×4 (10:50→20:09)
[2020-12-31] MEDS: NICOTINE 21MG/24HR 1 EA TRANSDERMAL TD SCH (11:22)
[2020-12-31] MEDS: cefTRIAXone SOD 2 GM in D5W MINI-BAG PLUS 50 ML IV SCH (11:22)
[2020-12-31] MEDS: MAG SULF 1GM/100ML (MAG RUN) 1 GM in IV 1 EA IV SCH ×2 (12:55→14:43)
[2020-12-31 14:00] VITALS: BP 148/72
[2020-12-31] MEDS: KCL 10MEQ/100ML SWI (KRUN) 10 MEQ in IV 1 EA IV SCH ×2 (15:53→17:41)
[2020-12-31] MEDS ORDERED: KCL 10MEQ IN STERILE WATER 100ML As Ordered ONE (17:38)
[2020-12-31 22:00] VITALS: BP 134/70
[2021-01-01 06:00] VITALS: BP 133/71
[2021-01-01] MEDS: SODIUM CHLORIDE 0.9% INJ 10 ML SYR IV SCH ×2 (06:00→16:53)
[2021-01-01] MEDS: METOCLOPRAMIDE INJ 10MG/2ML VIAL (J2765 PER 1) IV SCH ×2 (06:00→10:29)
[2021-01-01] MEDS: HumaLOG INSULIN (NovoLOG) PER UNIT SC SCH ×4 (06:00→20:40)
[2021-01-01 07:08] LABS: BASO % 0.3 % (0.0-1.0); EOS # 0.1 10^3/uL (0.0-0.5); EOS % 1.1 % (0.0-3.0); HEMATOCRIT 27.5 % (42.0-52.0); LYMPH # 1.3 10^3/uL (1.5-5.0); MEAN CORPUSCULAR HGB CONC 32.7 g/dl (32.0-36.5); MEAN CORPUSCULAR VOLUME 91.7 fl (80.0-96.0); NEUTROPHILS # 6.5 10^3/uL (1.5-8.5); NEUTROPHILS % 73.2 % (36.0-66.0); PLATELET COUNT, AUTOMATED 185 10^3/uL (150-450); WHITE BLOOD COUNT 8.9 10^3/uL (4.0-10.0)
[2021-01-01 07:24] LABS: ALBUMIN 2.1 GM/DL (3.2-5.2); ALT/SGPT 26 U/L (12-78); BILIRUBIN,DIRECT 1.2 MG/DL (0.0-0.2); BILIRUBIN,TOTAL 1.7 MG/DL (0.2-1.0); BLOOD UREA NITROGEN 11 MG/DL (7-18); CALCIUM LEVEL 8.4 MG/DL (8.5-10.1); CARBON DIOXIDE LEVEL 31 MEQ/L (21-32); CHLORIDE LEVEL 94 MEQ/L (98-107); CREATININE FOR GFR 0.66 MG/DL (0.70-1.30); GLOMERULAR FILTRATION RATE > 60.0 (>60); GLUCOSE, FASTING 132 MG/DL (70-100); MAGNESIUM LEVEL 1.7 MG/DL (1.8-2.4); POTASSIUM SERUM 3.5 MEQ/L (3.5-5.1); SODIUM LEVEL 130 MEQ/L (136-145); TOTAL PROTEIN 6.2 GM/DL (6.4-8.2)
[2021-01-01] MEDS: LEVALBUTEROL 1.25 MG/0.5 ML CONCENTRATE NEB INH SCH ×3 (07:53→17:55)
--- NOTE | 2021-01-01 09:15 | IPNPDOC ---
Text Note Date of Service The patient was seen on 01/01/21. NOTE S: Pt seen and evaluated this AM. He tells me he is feeling well and has tole rated clear liquids diet. Denies abd pain, n/v. Reports watery stool, flatus. Denies chest pain, SOB. O: GEN: sitting on edge of bed eating breakfast, awake, alert. NAD HEENT: Normocephalic, atraumatic. [place] palpebral conjunctiva, anicteric sclerae. Lips and mucosa appear moist. LUNGS: Clear to auscultation bilaterally. No wheezing appreciated HEART: No chest wall abnormalities. Regular rate and rhythm with no murmurs appreciated ABDOMEN: Abdomen is nontender, hard, distended. No grimacing with palpation. No masses appreciated. [place] catheter in place with good output. EXTREMITIES: Extremities have no deformities. 4+ pitting edema b/l LE A/P: 45M with hyponatremia found to have ileus and possible portal HTN secondary to decompensated liver cirrhosis w/ ascites, with stable abd exam and improved bowel function #Ileus- improved Patient tolerated clear liquids diet well. Denies n/v, abd pain. Will advance to regular diet. [place] catheter in place with good output. Monitor I&Os From a general surgery standpoint, patient is optimized. General Surgery will sign off. #Loose stool, most likely secondary to lactulose Nurse tells me she held pt's lactulose 12/31, but he most likely is still having effect of it on bowels. Patient's bowel function has improved. Heparin for DVT Prophylaxis DIET: regular ACTIVITY: OOB, frequent ambulation DISPO: Home w/ services, as per PT recommendations. General Surgery sign off. VS,Fishbone, I+O VS, Fishbone, I+O Laboratory Tests 01/01/21 06:32 Vital Signs Date Time Temp Pulse Resp B/P (MAP) Pulse Ox O2 Delivery O2 Flow Rate FiO2 01/01/21 06:00 98.9 88 16 133/71 (91) 92 Nasal Cannula 2.0 I&O- Last 24 Hours up to 6 AM 01/01/21 06:00 Intake Total 1450 ml Output Total 1300 ml Balance 150 ml Trena Neri DO Jan 01, 2021 09:15
[2021-01-01] MEDS: cefTRIAXone SOD 2 GM in D5W MINI-BAG PLUS 50 ML IV SCH (10:27)
[2021-01-01] MEDS: FOLIC ACID 1 MG TAB PO SCH (10:27)
[2021-01-01] MEDS: SIMETHICONE 80MG CHEW TAB PO SCH ×4 (10:28→20:24)
[2021-01-01] MEDS: MAGNESIUM OXIDE 400MG TAB (MAG-OX) PO SCH ×2 (10:28→20:25)
[2021-01-01] MEDS: MULTIVITAMINS/MINERALS THERAP 1 TAB PO SCH (10:28)
[2021-01-01] MEDS: THIAMINE 100 MG TAB PO SCH (10:28)
[2021-01-01] MEDS: LACTULOSE 20 GM/30 ML SYRUP UD PO SCH ×2 (10:29→20:24)
[2021-01-01] MEDS: NICOTINE 21MG/24HR 1 EA TRANSDERMAL TD SCH (10:29)
[2021-01-01] MEDS: ENOXAPARIN 40MG/0.4ML SYRINGE (J1650 PER 10MG) SC SCH (10:29)
[2021-01-01] MEDS: PANTOPRAZOLE 40MG VIAL (C9113 PER 1) IV SCH ×2 (10:29→20:24)
[2021-01-01] MEDS: FLUTICASONE PROP 0.05% NASAL SPRAY 16 GM (FLONASE) NARES SCH (10:29)
--- NOTE | 2021-01-01 13:49 | IPNPDOC ---
Subjective Date Seen The patient was seen on 01/01/21. Subjective Chief Complaint/HPI Patient started on diet today. does not offer any complaints this morning. Working with PT. having loose bowel movements and passing flatus. Denies any abdominal pain or distension. Objective Physical Examination General Exam: Positive: Alert, Cooperative, No Acute Distress Eye Exam: Positive: PERRLA, Conjunctiva & lids normal, EOMI; Negative: Sclera icteric ENT Exam: Positive: Atraumatic, Mucous membr. moist/pink, Pharynx Normal Neck Exam: Positive: Supple; Negative: JVD, thyromegaly Chest Exam: Positive: Diminished (Diminished at bases), Other (Bilateral basal crackle); Negative: Rales, Rhonchi, Wheezing Heart Exam: Positive: Rate Normal, Regular Rhythm, Normal S1, Normal S2; Negative: Murmurs, Rubs Abdomen Exam: Positive: Normal bowel sounds, Soft; Negative: Tenderness Extremity Exam: Positive: Edema; Negative: Clubbing, Cyanosis Skin Exam: Positive: Other skin issue (stasis rubor) Psych Exam: Positive: Memory Intact, Oriented x 3 Assessment /Plan Assessment This is a 45-year-old male with history of alcoholic liver cirrhosis, tobacco abuse, presented with confusion, difficulty concentrating, anasarca, and increasing abdominal distention, found to have sodium of 108. Admitted for hyponatremia, metabolic encephalopathy and decompen sated cirrhosis of liver. Hospital course was complicated by Klebsiella pneumonia, bowel Ileus s/p decompressive colonoscopy remains on NG tube and on TPN. Ileus status post decompressive colonoscopy. now improving started on diet today. Hyponatremia Improved due to beer potomania and alcoholic liver cirrhosis. Appreciate nephrology consultation Decompensated alcoholic liver cirrhosis with portal hypertension, recurrent ascites, hepatic encephalopathy status post large-volume paracentesis. 6850 mL was removed. will start on torsemide and aldactone Acute metabolic encephalopathy improved due to Acute hepatic encephalopathy and hyponatremia Pneumonia with Klebsiella and Streptococcus constellatus Continue ceftriaxone. Will finish total of 7 days of antibiotics on 01/01/2021 Hypomagnesemia and hypokalemia Replaced Type 2 diabetes. On lispro sliding scale Morbid obesity/CAT Continue CPAP Alcohol use disorder On thiamine and folate and multivitamin Other chronic medical conditions Dyslipidemia. Abnormal thyroid stimulating hormone (TSH). Chronic low back pain. Tobacco abuse with nicotine dependence. Hypertension Carotid artery disease 50 to 69% right internal carotid artery stenosis 16 to 49% right and left common carotid gastroesophageal reflux disease lumbar disc disease internal hemorrhoids Urethral meatal dilation cystoscopy Plan/VTE VTE Prophylaxis Ordered?: Yes Plan/Urinary Catheter Reason for insertion/continuin: Acute obstruct/retention VS, I&O, 24H, Fishbone Vital Signs/I&O Vital Signs Date Time Temp Pulse Resp B/P (MAP) Pulse Ox O2 Delivery O2 Flow Rate FiO2 01/01/21 09:00 2.0 01/01/21 06:00 98.9 88 16 133/71 (91) 92 Nasal Cannula I&O- Last 24 Hours up to 6 AM 01/01/21 06:00 Intake Total 1450 ml Output Total 1300 ml Balance 150 ml Laboratory Data 24H LABS Laboratory Tests 2 12/31/20 16:45: Bedside Glucose (Misc Panel) 144H 12/31/20 23:44: Bedside Glucose (Misc Panel) 126H 01/01/21 03:10: Bedside Glucose (Misc Panel) 101 01/01/21 06:32: Immature Granulocyte % (Auto) 0.4, Neutrophils (%) (Auto) 73.2H, Lymphocytes (%) (Auto) 14.0L, Monocytes (%) (Auto) 11.0H, Eosinophils (%) (Auto) 1.1, Basophils (%) (Auto) 0.3, Neutrophils # (Auto) 6.5, Lymphocytes # (Auto) 1.3L, Monocytes # (Auto) 1.0H, Eosinophils # (Auto) 0.1, Basophils # (Auto) 0.0, Nucleated Red Blood Cells % (auto) 0.0, Anion Gap 5L, Glomerular Filtration Rate > 60.0, Calcium Level 8.4L, Magnesium Level 1.7L, Total Bilirubin 1.7H, Direct Bilirubin 1.2H, Aspartate Amino Transf (AST/SGOT) 51H, Alanine Aminotransferase (ALT/SGPT) 26, Alkaline Phosphatase 236H, Total Protein 6.2L, Albumin 2.1L, Albumin/Globulin Ratio 0.5 01/01/21 12:34: Bedside Glucose (Misc Panel) 141H CBC/BMP Laboratory Tests 01/01/21 06:32 Microbiology Microbiology 12/26/20 Gram Stain - Final, Complete 12/26/20 Sputum Culture - Final, Complete Klebsiella Pneumoniae Streptococcus Constellatus 12/25/20 Blood Culture - Final, Complete NO GROWTH AFTER 5 DAYS 12/25/20 Blood Culture - Final, Complete NO GROWTH AFTER 5 DAYS 12/23/20 Acid Fast Stain, Received Pending 12/23/20 Mycobacterial Culture, Received Pending 12/23/20 Fungal Smear, Received Pending 12/23/20 Fungal Culture, Received Pending 12/23/20 Gram Stain - Final, Complete 12/23/20 Body Fluid Culture - Final, Complete 12/22/20 Respiratory Virus Panel (PCR) ([facility]) - Final, Complete Myriam Richey MD Jan 01, 2021 13:49
[2021-01-01 14:00] VITALS: BP 127/74
[2021-01-01] MEDS ORDERED: TORSEMIDE 20 MG TAB PO ONE (14:00)
[2021-01-01] MEDS: TAMSULOSIN 0.4 MG CAP PO SCH (14:13)
[2021-01-01] MEDS: FINASTERIDE 5 MG TAB PO SCH (14:13)
[2021-01-01] MEDS: SPIRONOLACTONE 25 MG TAB PO SCH (14:13)
[2021-01-01 22:00] VITALS: BP 130/67
[2021-01-02] MEDS: SODIUM CHLORIDE 0.9% INJ 10 ML SYR IV SCH ×2 (05:45→17:29)
[2021-01-02 06:00] VITALS: BP 129/66
[2021-01-02 06:14] LABS: BASO % 0.1 % (0.0-1.0); EOS # 0.1 10^3/uL (0.0-0.5); HEMATOCRIT 26.9 % (42.0-52.0); HEMOGLOBIN 8.8 g/dl (13.5-17.5); LYMPH # 1.3 10^3/uL (1.5-5.0); LYMPH % 15.8 % (24.0-44.0); MEAN CORPUSCULAR HEMOGLOBIN 29.7 pg (27.0-33.0); MEAN CORPUSCULAR HGB CONC 32.7 g/dl (32.0-36.5); MEAN CORPUSCULAR VOLUME 90.9 fl (80.0-96.0); MONO # 0.8 10^3/uL (0.0-0.8); NEUTROPHILS # 5.9 10^3/uL (1.5-8.5); NEUTROPHILS % 72.5 % (36.0-66.0); PLATELET COUNT, AUTOMATED 194 10^3/uL (150-450); RED BLOOD COUNT 2.96 10^6/uL (4.30-6.10); WHITE BLOOD COUNT 8.2 10^3/uL (4.0-10.0)
[2021-01-02 06:40] LABS: BLOOD UREA NITROGEN 10 MG/DL (7-18); CALCIUM LEVEL 8.3 MG/DL (8.5-10.1); CARBON DIOXIDE LEVEL 30 MEQ/L (21-32); CHLORIDE LEVEL 97 MEQ/L (98-107); CREATININE FOR GFR 0.63 MG/DL (0.70-1.30); GLOMERULAR FILTRATION RATE > 60.0 (>60); GLUCOSE, FASTING 101 MG/DL (70-100); MAGNESIUM LEVEL 1.4 MG/DL (1.8-2.4); POTASSIUM SERUM 3.2 MEQ/L (3.5-5.1); SODIUM LEVEL 133 MEQ/L (136-145)
[2021-01-02] MEDS: HumaLOG INSULIN (NovoLOG) PER UNIT SC SCH ×4 (07:30→21:00)
[2021-01-02] MEDS: LEVALBUTEROL 1.25 MG/0.5 ML CONCENTRATE NEB INH SCH ×3 (08:00→20:00)
[2021-01-02] MEDS: LACTULOSE 20 GM/30 ML SYRUP UD PO SCH ×2 (09:00→21:31)
[2021-01-02] MEDS ORDERED: TORSEMIDE 20 MG TAB PO SCH (09:00)
[2021-01-02] MEDS: ENOXAPARIN 40MG/0.4ML SYRINGE (J1650 PER 10MG) SC SCH (09:35)
[2021-01-02] MEDS: FLUTICASONE PROP 0.05% NASAL SPRAY 16 GM (FLONASE) NARES SCH (09:35)
[2021-01-02] MEDS: NICOTINE 21MG/24HR 1 EA TRANSDERMAL TD SCH (09:36)
[2021-01-02] MEDS: TAMSULOSIN 0.4 MG CAP PO SCH (09:36)
[2021-01-02] MEDS: POTASSIUM CHLORIDE 10MEQ SR TABLET PO SCH (09:37)
[2021-01-02] MEDS: FOLIC ACID 1 MG TAB PO SCH (09:37)
[2021-01-02] MEDS: MULTIVITAMINS/MINERALS THERAP 1 TAB PO SCH (09:37)
[2021-01-02] MEDS: THIAMINE 100 MG TAB PO SCH (09:38)
[2021-01-02] MEDS: SPIRONOLACTONE 25 MG TAB PO SCH (09:38)
[2021-01-02] MEDS: FAMOTIDINE 20 MG TAB PO SCH ×2 (09:38→21:31)
[2021-01-02] MEDS: MAGNESIUM OXIDE 400MG TAB (MAG-OX) PO SCH ×3 (09:38→21:31)
[2021-01-02] MEDS: SIMETHICONE 80MG CHEW TAB PO SCH ×4 (09:39→21:32)
[2021-01-02] MEDS: FINASTERIDE 5 MG TAB PO SCH (09:39)
[2021-01-02 14:00] VITALS: BP 129/72
--- NOTE | 2021-01-02 17:22 | IPNPDOC ---
Subjective Date Seen The patient was seen on 01/02/21. Subjective Chief Complaint/HPI No issues overnight. Ambulating well. Patient had Covid exposure so is on quarantine till 01/11/2021, anticipate discharge home in the next 24 hours Objective Physical Examination General Exam: Positive: Alert, Cooperative, No Acute Distress Eye Exam: Positive: PERRLA, Conjunctiva & lids normal, EOMI; Negative: Sclera icteric ENT Exam: Positive: Atraumatic, Mucous membr. moist/pink, Pharynx Normal Neck Exam: Positive: Supple; Negative: JVD, thyromegaly Chest Exam: Positive: Diminished (Diminished at bases), Other (Bilateral basal crackle); Negative: Rales, Rhonchi, Wheezing Heart Exam: Positive: Rate Normal, Regular Rhythm, Normal S1, Normal S2; Negative: Murmurs, Rubs Abdomen Exam: Positive: Normal bowel sounds, Soft; Negative: Tenderness Extremity Exam: Positive: Edema; Negative: Clubbing, Cyanosis Skin Exam: Positive: Other skin issue (stasis rubor) Psych Exam: Positive: Memory Intact, Oriented x 3 Assessment /Plan Assessment This is a 45-year-old male with history of alcoholic liver cirrhosis, tobacco abuse, presented with confusion, difficulty concentrating, anasarca, and increasing abdominal distention, found to have sodium of 108. Admitted for hyponatremia, metabolic encephalopathy and decompensated cirrhosis of liver. Hospital course was complicated by Klebsiella pneumonia, bowel Ileus s/p decompressive colonoscopy remains on NG tube and on TPN. Ileus status post decompressive colonoscopy. now improving started on diet today. Hyponatremia Improved due to beer potomania and alcoholic liver cirrhosis. Appreciate nephrology consultation Decompensated alcoholic liver cirrhosis with portal hypertension, recurrent ascites, hepatic encephalopathy status post large-volume paracentesis. 6850 mL was removed. will start on torsemide and aldactone Acute metabolic encephalopathy improved due to Acute hepatic encephalopathy and hyponatremia Pneumonia with Klebsiella and Streptococcus constellatus Continue ceftriaxone. Will finish total of 7 days of antibiotics on 01/01/2021 Hypomagnesemia and hypokalemia Replaced Type 2 diabetes. On lispro sliding scale Morbid obesity/CAT Continue CPAP Alcohol use disorder On thiamine and folate and multivitamin Other chronic medical conditions Dyslipidemia. Abnormal thyroid stimulating hormone (TSH). Chronic low back pain. Tobacco abuse with nicotine dependence. Hypertension Carotid artery disease 50 to 69% right internal carotid artery stenosis 16 to 49% right and left common carotid gastroesophageal reflux disease lumbar disc disease internal hemorrhoids Urethral meatal dilation cystoscopy Dispo: Home in 24 hours to 48 hours Plan/VTE VTE Prophylaxis Ordered?: Yes Plan/Urinary Catheter Reason for insertion/continuin: Acute obstruct/retention VS, I&O, 24H, Fishbone Vital Signs/I&O Vital Signs Date Time Temp Pulse Resp B/P (MAP) Pulse Ox O2 Delivery O2 Flow Rate FiO2 01/02/21 14:00 98.9 104 22 129/72 (91) 91 Nasal Cannula 2.0 I&O- Last 24 Hours up to 6 AM 01/02/21 06:00 Intake Total 830 ml Output Total 525 ml Balance 305 ml Laboratory Data 24H LABS Laboratory Tests 2 01/01/21 20:31: Bedside Glucose (Misc Panel) 161H 01/02/21 05:45: Immature Granulocyte % (Auto) 0.6, Neutrophils (%) (Auto) 72.5H, Lymphocytes (%) (Auto) 15.8L, Monocytes (%) (Auto) 10.0H, Eosinophils (%) (Auto) 1.0, Basophils (%) (Auto) 0.1, Neutrophils # (Auto) 5.9, Lymphocytes # (Auto) 1.3L, Monocytes # (Auto) 0.8, Eosinophils # (Auto) 0.1, Basophils # (Auto) 0.0, Nucleated Red Blood Cells % (auto) 0.0, Anion Gap 6L, Glomerular Filtration Rate > 60.0, Calcium Level 8.3L, Magnesium Level 1.4L 01/02/21 11:39: Bedside Glucose (Misc Panel) 149H 01/02/21 16:34: Bedside Glucose (Misc Panel) 128H CBC/BMP Laboratory Tests 01/02/21 05:45 Microbiology Microbiology 12/26/20 Gram Stain - Final, Complete 12/26/20 Sputum Culture - Final, Complete Klebsiella Pneumoniae Streptococcus Constellatus 12/25/20 Blood Culture - Final, Complete NO GROWTH AFTER 5 DAYS 12/25/20 Blood Culture - Final, Complete NO GROWTH AFTER 5 DAYS 12/23/20 Acid Fast Stain, Received Pending 12/23/20 Mycobacterial Culture, Received Pending 12/23/20 Fungal Smear, Received Pending 12/23/20 Fungal Culture, Received Pending 12/23/20 Gram Stain - Final, Complete 12/23/20 Body Fluid Culture - Final, Complete Myriam Richey MD Jan 02, 2021 17:22
[2021-01-02 22:00] VITALS: BP 133/92
[2021-01-03] MEDS: SODIUM CHLORIDE 0.9% INJ 10 ML SYR IV SCH ×2 (05:20→16:54)
[2021-01-03 06:00] VITALS: BP 132/73
[2021-01-03] MEDS: LEVALBUTEROL 1.25 MG/0.5 ML CONCENTRATE NEB INH SCH ×3 (07:51→20:00)
[2021-01-03] MEDS ORDERED: TORSEMIDE 20 MG TAB PO SCH ×2 (09:00→17:00)
[2021-01-03 09:31] LABS: BASO % 0.3 % (0.0-1.0); EOS % 0.5 % (0.0-3.0); LYMPH # 1.3 10^3/uL (1.5-5.0); LYMPH % 14.6 % (24.0-44.0); MEAN CORPUSCULAR HGB CONC 33.3 g/dl (32.0-36.5); MONO # 0.9 10^3/uL (0.0-0.8); MONO % 9.8 % (2.0-8.0); NEUTROPHILS # 6.6 10^3/uL (1.5-8.5); NEUTROPHILS % 74.3 % (36.0-66.0); PLATELET COUNT, AUTOMATED 223 10^3/uL (150-450); WHITE BLOOD COUNT 8.8 10^3/uL (4.0-10.0)
[2021-01-03 09:57] LABS: BLOOD UREA NITROGEN 9 MG/DL (7-18); CALCIUM LEVEL 8.4 MG/DL (8.5-10.1); CARBON DIOXIDE LEVEL 29 MEQ/L (21-32); CHLORIDE LEVEL 99 MEQ/L (98-107); CREATININE FOR GFR 0.62 MG/DL (0.70-1.30); GLOMERULAR FILTRATION RATE > 60.0 (>60); GLUCOSE, FASTING 115 MG/DL (70-100); MAGNESIUM LEVEL 1.4 MG/DL (1.8-2.4); POTASSIUM SERUM 3.6 MEQ/L (3.5-5.1); SODIUM LEVEL 134 MEQ/L (136-145)
[2021-01-03] MEDS: MAGNESIUM OXIDE 400MG TAB (MAG-OX) PO SCH ×3 (10:19→21:45)
[2021-01-03] MEDS: FAMOTIDINE 20 MG TAB PO SCH ×2 (10:19→21:44)
[2021-01-03] MEDS: FOLIC ACID 1 MG TAB PO SCH (10:20)
[2021-01-03] MEDS: THIAMINE 100 MG TAB PO SCH (10:20)
[2021-01-03] MEDS: LACTULOSE 20 GM/30 ML SYRUP UD PO SCH ×2 (10:20→21:00)
[2021-01-03] MEDS: TAMSULOSIN 0.4 MG CAP PO SCH (10:20)
[2021-01-03] MEDS: FINASTERIDE 5 MG TAB PO SCH (10:20)
[2021-01-03] MEDS: MULTIVITAMINS/MINERALS THERAP 1 TAB PO SCH (10:20)
[2021-01-03] MEDS: SIMETHICONE 80MG CHEW TAB PO SCH ×4 (10:20→21:45)
[2021-01-03] MEDS: SPIRONOLACTONE 25 MG TAB PO SCH (10:20)
[2021-01-03] MEDS: NICOTINE 21MG/24HR 1 EA TRANSDERMAL TD SCH (10:21)
[2021-01-03] MEDS: POTASSIUM CHLORIDE 10MEQ SR TABLET PO SCH (10:21)
[2021-01-03] MEDS: ENOXAPARIN 40MG/0.4ML SYRINGE (J1650 PER 10MG) SC SCH (10:22)
[2021-01-03] MEDS: FLUTICASONE PROP 0.05% NASAL SPRAY 16 GM (FLONASE) NARES SCH (10:22)
[2021-01-03] MEDS: HumaLOG INSULIN (NovoLOG) PER UNIT SC SCH ×4 (10:29→21:00)
[2021-01-03] MEDS ORDERED: FUROSEMIDE 100MG/10ML VIAL (J1940) IV ONE (12:10)
--- NOTE | 2021-01-03 12:18 | IPNPDOC ---
Subjective Date Seen The patient was seen on 01/03/21. Subjective Chief Complaint/HPI Patient complains of heaviness and tightness of his legs and thighs. Both of his lower extremities are extremely edematous extending up to his hips. No fever or chills. He had soft bowel movements. He has been eating regular food. He has been ambulating in the room. Objective Physical Examination General Exam: Positive: Alert, Cooperative, No Acute Distress Eye Exam: Positive: PERRLA, Conjunctiva & lids normal, EOMI; Negative: Sclera icteric ENT Exam: Positive: Atraumatic, Mucous membr. moist/pink, Pharynx Normal Neck Exam: Positive: Supple; Negative: JVD, thyromegaly Chest Exam: Positive: Diminished (Diminished at bases), Other (Bilateral basal crackle); Negative: Rales, Rhonchi, Wheezing Heart Exam: Positive: Rate Normal, Regular Rhythm, Normal S1, Normal S2; Negative: Murmurs, Rubs Abdomen Exam: Positive: Normal bowel sounds, Soft; Negative: Tenderness Extremity Exam: Positive: Edema (4+ extending up to the upper part of thigh and hip); Negative: Clubbing, Cyanosis Skin Exam: Positive: Other skin issue (stasis rubor) Psych Exam: Positive: Memory Intact, Oriented x 3 Assessment /Plan Assessment This is a 45-year-old male with history of alcoholic liver cirrhosis, tobacco abuse, presented with confusion, difficulty concentrating, anasarca, and increasing abdominal distention, found to have sodium of 108. Admitted for hyponatremia, metabolic encephalopathy and decompensated cirrhosis of liver. Hospital course was complicated by Klebsiella pneumonia, bowel Ileus s/p decompressive colonoscopy , massive fluid overload. Decompensated alcoholic liver cirrhosis with portal hypertension, recurrent ascites, hepatic encephalopathy status post large-volume paracentesis. 6850 mL was removed. Now with massive edema of both lower extremities started on torsemide and aldactone Will give 1 dose of IV Lasix Ileus status post decompressive colonoscopy. Now improved On regular diet Hyponatremia Improved due to beer potomania and alcoholic liver cirrhosis. Appreciate nephrology consultation Acute metabolic encephalopathy improved due to Acute hepatic encephalopathy and hyponatremia Pneumonia with Klebsiella and Streptococcus constellatus finished total of 7 days of antibiotics on 01/01/2021 Hypomagnesemia and hypokalemia Getting replaced Type 2 diabetes. On lispro sliding scale Morbid obesity/CAT Continue CPAP Alcohol use disorder On thiamine and folate and multivitamin Other chronic medical conditions Dyslipidemia. Abnormal thyroid stimulating hormone (TSH). Chronic low back pain. Tobacco abuse with nicotine dependence. Hypertension Carotid artery disease 50 to 69% right internal carotid artery stenosis 16 to 49% right and left common carotid gastroesophageal reflux disease lumbar disc disease internal hemorrhoids Urethral meatal dilation cystoscopy Dispo: Home in 24 hours to 48 hours Plan/VTE VTE Prophylaxis Ordered?: Yes Plan/Urinary Catheter Reason for insertion/continuin: Acute obstruct/retention VS, I&O, 24H, Fishbone Vital Signs/I&O Vital Signs Date Time Temp Pulse Resp B/P (MAP) Pulse Ox O2 Delivery O2 Flow Rate FiO2 01/03/21 06:00 98.7 89 19 132/73 (92) 96 Nasal Cannula 2.0 I&O- Last 24 Hours up to 6 AM 01/03/21 05:59 Intake Total 1410 ml Output Total 0 ml Balance 1410 ml Laboratory Data 24H LABS Laboratory Tests 2 01/02/21 16:34: Bedside Glucose (Misc Panel) 128H 01/02/21 21:06: Bedside Glucose (Misc Panel) 145H 01/03/21 08:41: Bedside Glucose (Misc Panel) 118H 01/03/21 09:17: Immature Granulocyte % (Auto) 0.5, Neutrophils (%) (Auto) 74.3H, Lymphocytes (%) (Auto) 14.6L, Monocytes (%) (Auto) 9.8H, Eosinophils (%) (Auto) 0.5, Basophils (%) (Auto) 0.3, Neutrophils # (Auto) 6.6, Lymphocytes # (Auto) 1.3L, Monocytes # (Auto) 0.9H, Eosinophils # (Auto) 0.0, Basophils # (Auto) 0.0, Nucleated Red Blood Cells % (auto) 0.0, Anion Gap 6L, Glomerular Filtration Rate > 60.0, Calcium Level 8.4L, Magnesium Level 1.4L 01/03/21 11:54: Bedside Glucose (Misc Panel) 146H CBC/BMP Laboratory Tests 01/03/21 09:17 Microbiology Microbiology 12/26/20 Gram Stain - Final, Complete 12/26/20 Sputum Culture - Final, Complete Klebsiella Pneumoniae Streptococcus Constellatus 12/25/20 Blood Culture - Final, Complete NO GROWTH AFTER 5 DAYS 12/25/20 Blood Culture - Final, Complete NO GROWTH AFTER 5 DAYS Myriam Richey MD Jan 03, 2021 12:18
[2021-01-03 14:00] VITALS: BP 132/73
[2021-01-03] MEDS: SODIUM CHLORIDE 0.9% INJ 10 ML SYR IV PRN (16:54)
[2021-01-03 20:00] VITALS: BP 143/81
[2021-01-04 06:00] VITALS: BP 135/78
[2021-01-04 06:10] LABS: BASO % 0.4 % (0.0-1.0); EOS % 0.5 % (0.0-3.0); HEMATOCRIT 26.6 % (42.0-52.0); HEMOGLOBIN 8.7 g/dl (13.5-17.5); LYMPH # 1.3 10^3/uL (1.5-5.0); LYMPH % 16.1 % (24.0-44.0); MEAN CORPUSCULAR HEMOGLOBIN 29.7 pg (27.0-33.0); MEAN CORPUSCULAR HGB CONC 32.7 g/dl (32.0-36.5); MEAN CORPUSCULAR VOLUME 90.8 fl (80.0-96.0); MONO # 0.8 10^3/uL (0.0-0.8); MONO % 10.1 % (2.0-8.0); NEUTROPHILS # 5.9 10^3/uL (1.5-8.5); NEUTROPHILS % 72.4 % (36.0-66.0); PLATELET COUNT, AUTOMATED 238 10^3/uL (150-450); RED BLOOD COUNT 2.93 10^6/uL (4.30-6.10); WHITE BLOOD COUNT 8.2 10^3/uL (4.0-10.0)
[2021-01-04 06:32] LABS: BLOOD UREA NITROGEN 7 MG/DL (7-18); CARBON DIOXIDE LEVEL 30 MEQ/L (21-32); CHLORIDE LEVEL 97 MEQ/L (98-107); GLOMERULAR FILTRATION RATE > 60.0 (>60); GLUCOSE, FASTING 103 MG/DL (70-100); POTASSIUM SERUM 3.3 MEQ/L (3.5-5.1); SODIUM LEVEL 135 MEQ/L (136-145)
[2021-01-04] MEDS ORDERED: SIMETHICONE 80MG CHEW TAB PO PRN (07:05)
[2021-01-04] MEDS: LEVALBUTEROL 1.25 MG/0.5 ML CONCENTRATE NEB INH SCH ×3 (07:25→20:00)
[2021-01-04] MEDS: HumaLOG INSULIN (NovoLOG) PER UNIT SC SCH ×4 (07:30→21:00)
[2021-01-04] MEDS: SODIUM CHLORIDE 0.9% INJ 10 ML SYR IV SCH ×2 (07:41→17:30)
[2021-01-04] MEDS: TAMSULOSIN 0.4 MG CAP PO SCH (10:07)
[2021-01-04] MEDS: ENOXAPARIN 40MG/0.4ML SYRINGE (J1650 PER 10MG) SC SCH (10:07)
[2021-01-04] MEDS: MAG SULF 1GM/100ML (MAG RUN) 1 GM in IV 1 EA IV SCH ×4 (10:07→13:41)
[2021-01-04] MEDS: THIAMINE 100 MG TAB PO SCH (10:07)
[2021-01-04] MEDS: FOLIC ACID 1 MG TAB PO SCH (10:07)
[2021-01-04] MEDS: FAMOTIDINE 20 MG TAB PO SCH ×2 (10:07→21:17)
[2021-01-04] MEDS: MAGNESIUM OXIDE 400MG TAB (MAG-OX) PO SCH ×2 (10:08→21:18)
[2021-01-04] MEDS: MULTIVITAMINS/MINERALS THERAP 1 TAB PO SCH (10:08)
[2021-01-04] MEDS: POTASSIUM CHLORIDE 10MEQ SR TABLET PO SCH ×2 (10:08→21:17)
[2021-01-04] MEDS: FINASTERIDE 5 MG TAB PO SCH (10:08)
[2021-01-04] MEDS: SPIRONOLACTONE 50 MG TAB PO SCH (10:08)
[2021-01-04] MEDS: FUROSEMIDE 100MG/10ML VIAL (J1940) IV SCH ×2 (10:09→17:29)
[2021-01-04] MEDS: NICOTINE 21MG/24HR 1 EA TRANSDERMAL TD SCH (10:09)
[2021-01-04] MEDS: FLUTICASONE PROP 0.05% NASAL SPRAY 16 GM (FLONASE) NARES SCH (10:09)
--- NOTE | 2021-01-04 13:22 | IPNPDOC ---
Subjective Date Seen The patient was seen on 01/04/21. Subjective Chief Complaint/HPI Had 8 liquid bowel movements yesterday. Will stop lactulose. Magnesium very low will replace IV. Did have good urine output yesterday. Patient reports that the legs and thighs and groin remain very swollen. He is having difficulty in ambulation because of the swelling. This morning he was having a difficult difficulty in urination so we did a bladder scan which showed 529 and he was able to void. Objective Physical Examination General Exam: Positive: Alert, Cooperative, No Acute Distress Eye Exam: Positive: PERRLA, Conjunctiva & lids normal, EOMI; Negative: Sclera icteric ENT Exam: Positive: Atraumatic, Mucous membr. moist/pink, Pharynx Normal Neck Exam: Positive: Supple; Negative: JVD, thyromegaly Chest Exam: Positive: Diminished (Diminished at bases), Other (Bilateral basal crackle); Negative: Rales, Rhonchi, Wheezing Heart Exam: Positive: Rate Normal, Regular Rhythm, Normal S1, Normal S2; Negative: Murmurs, Rubs Abdomen Exam: Positive: Normal bowel sounds, Soft; Negative: Tenderness Extremity Exam: Positive: Edema (4+ extending up to the upper part of thigh and hip); Negative: Clubbing, Cyanosis Skin Exam: Positive: Other skin issue (stasis rubor) Psych Exam: Positive: Memory Intact, Oriented x 3 Assessment /Plan Assessment This is a 45-year-old male with history of alcoholic liver cirrhosis, tobacco abuse, presented with confusion, difficulty concentrating, anasarca, and increasing abdominal distention, found to have sodium of 108. Admitted for hyponatremia, metabolic encephalopathy and decompensated cirrhosis of liver. Hospital course was complicated by Klebsiella pneumonia, bowel Ileus s/p decompressive colonoscopy , massive fluid overload. Decompensated alcoholic liver cirrhosis with portal hypertension, recurrent ascites, hepatic encephalopathy status post large-volume paracentesis. 6850 mL was removed. Now with massive edema of both lower extremities started on IV lasix and aldactone Will stop lactulose as having multiple bowel movements. Hypomagnesemia and hypokalemia Getting replaced IV and PO. Ileus status post decompressive colonoscopy. Now improved On regular diet Hyponatremia Improved due to beer potomania and alcoholic liver cirrhosis. Appreciate nephrology consultation Acute metabolic encephalopathy improved due to Acute hepatic encephalopathy and hyponatremia Pneumonia with Klebsiella and Streptococcus constellatus finished total of 7 days of antibiotics on 01/01/2021 Type 2 diabetes. On lispro sliding scale Morbid obesity/CAT Continue CPAP, using 2 liters at night in hospital. Alcohol use disorder On thiamine and folate and multivitamin Other chronic medical conditions Dyslipidemia. Abnormal thyroid stimulating hormone (TSH). Chronic low back pain. Tobacco abuse with nicotine dependence. Hypertension Carotid artery disease 50 to 69% right internal carotid artery stenosis 16 to 49% right and left common carotid gastroesophageal reflux disease lumbar disc disease internal hemorrhoids Urethral meatal dilation cystoscopy Plan/VTE VTE Prophylaxis Ordered?: Yes Plan/Urinary Catheter Reason for insertion/continuin: Acute obstruct/retention VS, I&O, 24H, Fishbone Vital Signs/I&O Vital Signs Date Time Temp Pulse Resp B/P (MAP) Pulse Ox O2 Delivery O2 Flow Rate FiO2 01/04/21 06:00 98.2 76 17 135/78 (97) 96 Nasal Cannula 2.0 I&O- Last 24 Hours up to 6 AM 01/04/21 06:00 Intake Total 1200 ml Balance 1200 ml Laboratory Data 24H LABS Laboratory Tests 2 01/03/21 08:41: Bedside Glucose (Misc Panel) 118H 01/03/21 09:17: Immature Granulocyte % (Auto) 0.5, Neutrophils (%) (Auto) 74.3H, Lymphocytes (%) (Auto) 14.6L, Monocytes (%) (Auto) 9.8H, Eosinophils (%) (Auto) 0.5, Basophils (%) (Auto) 0.3, Neutrophils # (Auto) 6.6, Lymphocytes # (Auto) 1.3L, Monocytes # (Auto) 0.9H, Eosinophils # (Auto) 0.0, Basophils # (Auto) 0.0, Nucleated Red Blood Cells % (auto) 0.0, Anion Gap 6L, Glomerular Filtration Rate > 60.0, Calcium Level 8.4L, Magnesium Level 1.4L 01/03/21 11:54: Bedside Glucose (Misc Panel) 146H 01/03/21 16:44: Bedside Glucose (Misc Panel) 168H 01/03/21 21:21: Bedside Glucose (Misc Panel) 148H 01/04/21 05:44: Immature Granulocyte % (Auto) 0.5, Neutrophils (%) (Auto) 72.4H, Lymphocytes (%) (Auto) 16.1L, Monocytes (%) (Auto) 10.1H, Eosinophils (%) (Auto) 0.5, Basophils (%) (Auto) 0.4, Neutrophils # (Auto) 5.9, Lymphocytes # (Auto) 1.3L, Monocytes # (Auto) 0.8, Eosinophils # (Auto) 0.0, Basophils # (Auto) 0.0, Nucleated Red Blood Cells % (auto) 0.0, Anion Gap 8, Glomerular Filtration Rate > 60.0, Calcium Level 8.0L, Magnesium Level 1.0L CBC/BMP Laboratory Tests 01/03/21 09:17 01/04/21 05:44 Microbiology Microbiology 12/26/20 Gram Stain - Final, Complete 12/26/20 Sputum Culture - Final, Complete Klebsiella Pneumoniae Streptococcus Constellatus 12/25/20 Blood Culture - Final, Complete NO GROWTH AFTER 5 DAYS 12/25/20 Blood Culture - Final, Complete NO GROWTH AFTER 5 DAYS Myriam Richey MD Jan 04, 2021 07:10
[2021-01-04 14:00] VITALS: BP 132/78
[2021-01-04 22:00] VITALS: BP 133/74
[2021-01-05] MEDS: SODIUM CHLORIDE 0.9% INJ 10 ML SYR IV SCH ×2 (05:37→17:53)
[2021-01-05 06:00] VITALS: BP 133/72
[2021-01-05] MEDS: LEVALBUTEROL 1.25 MG/0.5 ML CONCENTRATE NEB INH SCH ×3 (08:00→20:00)
[2021-01-05] MEDS: NICOTINE 21MG/24HR 1 EA TRANSDERMAL TD SCH (09:00)
[2021-01-05] MEDS: FLUTICASONE PROP 0.05% NASAL SPRAY 16 GM (FLONASE) NARES SCH (10:12)
[2021-01-05] MEDS: FUROSEMIDE 100MG/10ML VIAL (J1940) IV SCH ×2 (10:12→16:32)
[2021-01-05] MEDS: ENOXAPARIN 40MG/0.4ML SYRINGE (J1650 PER 10MG) SC SCH (10:12)
[2021-01-05] MEDS: THIAMINE 100 MG TAB PO SCH (10:13)
[2021-01-05] MEDS: FAMOTIDINE 20 MG TAB PO SCH ×2 (10:13→21:22)
[2021-01-05] MEDS: HumaLOG INSULIN (NovoLOG) PER UNIT SC SCH ×4 (10:13→20:25)
[2021-01-05] MEDS: SPIRONOLACTONE 50 MG TAB PO SCH (10:13)
[2021-01-05] MEDS: TAMSULOSIN 0.4 MG CAP PO SCH (10:13)
[2021-01-05] MEDS: FINASTERIDE 5 MG TAB PO SCH (10:13)
[2021-01-05] MEDS: MAGNESIUM OXIDE 400MG TAB (MAG-OX) PO SCH ×2 (10:14→21:22)
[2021-01-05] MEDS: POTASSIUM CHLORIDE 10MEQ SR TABLET PO SCH ×2 (10:14→21:22)
[2021-01-05] MEDS: MULTIVITAMINS/MINERALS THERAP 1 TAB PO SCH (10:14)
[2021-01-05] MEDS: FOLIC ACID 1 MG TAB PO SCH (10:14)
[2021-01-05 12:11] LABS: BASO % 0.5 % (0.0-1.0); EOS # 0.1 10^3/uL (0.0-0.5); EOS % 0.8 % (0.0-3.0); HEMATOCRIT 29.6 % (42.0-52.0); HEMOGLOBIN 9.6 g/dl (13.5-17.5); LYMPH # 1.3 10^3/uL (1.5-5.0); LYMPH % 17.4 % (24.0-44.0); MEAN CORPUSCULAR HEMOGLOBIN 29.8 pg (27.0-33.0); MEAN CORPUSCULAR HGB CONC 32.4 g/dl (32.0-36.5); MEAN CORPUSCULAR VOLUME 91.9 fl (80.0-96.0); MONO # 0.7 10^3/uL (0.0-0.8); MONO % 9.4 % (2.0-8.0); NEUTROPHILS # 5.3 10^3/uL (1.5-8.5); NEUTROPHILS % 71.5 % (36.0-66.0); PLATELET COUNT, AUTOMATED 305 10^3/uL (150-450); RED BLOOD COUNT 3.22 10^6/uL (4.30-6.10); WHITE BLOOD COUNT 7.5 10^3/uL (4.0-10.0)
--- NOTE | 2021-01-05 13:29 | IPNPDOC ---
Text Note Date of Service The patient was seen on 01/05/21. NOTE Subjective: Patient is a 45-year-old male who presented with confusion, diff iculty concentration, anasarca, and increased abdominal distention is found to have a sodium of 108 who was admitted for hyponatremia. Patient says he is feeling better. Large volume paracentesis were 6850 mL were removed. Patient still has massive edema of both lower extremities. Patient is on IV Lasix and Aldactone. Lactulose has been stopped as the patient had 8 bowel movements. Patient states he is feeling well and earlier wanted to leave AGAINST MEDICAL ADVICE however, nursing was able to convince the patient to stay. Patient states that other than his legs being very swollen, he is feeling otherwise well. Review of systems: General: Patient denies fevers HEENT: Patient denies headaches Cardiovascular: Patient denies chest pain Respiratory: Patient denies shortness of breath, cough GI: Patient reports his abdomen is about the same size as it has been since paracentesis : Patient denies increased frequency or pain with urination Extremities: Patient denies swelling or pain in extremities Neurological: Patient reports massive edema in both legs up to the level of the hip Physical exam: Vitals: See below General: Alert and oriented male patient was sitting on the bedside edge of the bed when I walked in. Patient did not appear to be in any acute distress. HEENT: Normocephalic, atraumatic, moist mucous membranes. Neck: No lymphadenopathy or thyromegaly Cardiac: Regular rate and rhythm, no murmurs, normal S1, normal S2 Pulm: Clear to auscultation bilaterally. No wheezes, rhonchi, rales Abd: Nondistended, nontender to palpation, normal bowel sounds Ext: 3+ pitting edema up to the level of the knee bilaterally, 2+ pitting edema up to the level of the hip bilaterally Labs: See below Imaging: No new imaging has been performed Assessment/plan: 45-year-old male with a history of alcoholic liver cirrhosis, tobacco abuse, presented with confusion, difficulty concentrating, anasarca, increased abdominal distention found to have a sodium of 108. Admitted for hyponatremia, metabolic encephalopathy and decompensated cirrhosis of the liver. Hospital course complicated by Klebsiella pneumonia, bowel ileus status post decompressive colonoscopy, massive fluid overload. 1. Decompensated alcoholic liver cirrhosis with portal hypertension, recurrent ascites, hepatic encephalopathy status post large-volume paracentesis. 6850 mL were removed. Patient now has massive edema of both lower extremities. Started on IV Lasix and Aldactone. We will stop lactulose as patient is having multiple bowel movements. 2. Hypomagnesemia. Replace via IV. Continue to monitor. 3. Hypokalemia. Replace p.o. and will continue to monitor. Patient is now on potassium sparing diuretic. 4. Ileus status post decompressive colonoscopy. Now improved. On regular di et. 5. Hyponatremia, improved. Due to beer portal vandana and alcoholic liver cirrhosis. 6. Acute metabolic encephalopathy, improved. Due to acute hepatic encephalopathy and/or hyponatremia. 7. Pneumonia with Klebsiella and Streptococcus constellatus. Status post 7 days of antibiotics. 8. Type 2 diabetes mellitus. On lispro sliding scale. 9. Class III obesity. Complicating patient's care. 10. Alcohol use disorder. On thiamine and folate. DVT Prophylaxis: Lovenox Disposition: Pending clinical improvement, possible discharge tomorrow VS,Jose Roberto, I+O VS, Jose Roberto, I+O Laboratory Tests 01/05/21 10:44 Vital Signs Date Time Temp Pulse Resp B/P (MAP) Pulse Ox O2 Delivery O2 Flow Rate FiO2 01/05/21 06:00 98.2 89 18 133/72 (92) 94 Nasal Cannula 2.0 I&O- Last 24 Hours up to 6 AM 01/05/21 05:59 Intake Total 520 ml Output Total 2900 ml Balance -2380 ml WILL DUMONT DO Jan 05, 2021 13:29
[2021-01-05 14:00] VITALS: BP 129/72
[2021-01-05 22:00] VITALS: BP 133/71
[2021-01-06 05:58] LABS: BASO % 0.5 % (0.0-1.0); EOS % 0.6 % (0.0-3.0); HEMATOCRIT 26.6 % (42.0-52.0); HEMOGLOBIN 8.7 g/dl (13.5-17.5); LYMPH # 1.4 10^3/uL (1.5-5.0); LYMPH % 22.5 % (24.0-44.0); MEAN CORPUSCULAR HEMOGLOBIN 29.8 pg (27.0-33.0); MEAN CORPUSCULAR HGB CONC 32.7 g/dl (32.0-36.5); MEAN CORPUSCULAR VOLUME 91.1 fl (80.0-96.0); MONO # 0.7 10^3/uL (0.0-0.8); MONO % 11.3 % (2.0-8.0); NEUTROPHILS # 4.1 10^3/uL (1.5-8.5); NEUTROPHILS % 64.6 % (36.0-66.0); PLATELET COUNT, AUTOMATED 275 10^3/uL (150-450); RED BLOOD COUNT 2.92 10^6/uL (4.30-6.10); WHITE BLOOD COUNT 6.4 10^3/uL (4.0-10.0)
[2021-01-06 06:00] VITALS: BP 130/68
[2021-01-06] MEDS: SODIUM CHLORIDE 0.9% INJ 10 ML SYR IV SCH ×2 (06:00→17:45)
[2021-01-06 06:27] LABS: BLOOD UREA NITROGEN 5 MG/DL (7-18); CALCIUM LEVEL 7.6 MG/DL (8.5-10.1); CARBON DIOXIDE LEVEL 31 MEQ/L (21-32); CHLORIDE LEVEL 98 MEQ/L (98-107); CREATININE FOR GFR 0.69 MG/DL (0.70-1.30); GLOMERULAR FILTRATION RATE > 60.0 (>60); GLUCOSE, FASTING 102 MG/DL (70-100); MAGNESIUM LEVEL 1.4 MG/DL (1.8-2.4); POTASSIUM SERUM 3.8 MEQ/L (3.5-5.1); SODIUM LEVEL 134 MEQ/L (136-145)
[2021-01-06] MEDS: HumaLOG INSULIN (NovoLOG) PER UNIT SC SCH ×4 (07:30→21:00)
[2021-01-06] MEDS: LEVALBUTEROL 1.25 MG/0.5 ML CONCENTRATE NEB INH SCH ×3 (08:00→20:00)
[2021-01-06] MEDS: FOLIC ACID 1 MG TAB PO SCH (08:45)
[2021-01-06] MEDS: ENOXAPARIN 40MG/0.4ML SYRINGE (J1650 PER 10MG) SC SCH (08:45)
[2021-01-06] MEDS: FLUTICASONE PROP 0.05% NASAL SPRAY 16 GM (FLONASE) NARES SCH (08:45)
[2021-01-06] MEDS: MULTIVITAMINS/MINERALS THERAP 1 TAB PO SCH (08:45)
[2021-01-06] MEDS: THIAMINE 100 MG TAB PO SCH (08:45)
[2021-01-06] MEDS: MAGNESIUM OXIDE 400MG TAB (MAG-OX) PO SCH ×2 (08:46→22:48)
[2021-01-06] MEDS: FAMOTIDINE 20 MG TAB PO SCH ×2 (08:46→22:47)
[2021-01-06] MEDS: POTASSIUM CHLORIDE 10MEQ SR TABLET PO SCH ×2 (08:46→22:47)
[2021-01-06] MEDS: TAMSULOSIN 0.4 MG CAP PO SCH (08:46)
[2021-01-06] MEDS: FUROSEMIDE 80 MG TAB PO SCH (08:46)
[2021-01-06] MEDS: SPIRONOLACTONE 50 MG TAB PO SCH (08:46)
[2021-01-06] MEDS: FINASTERIDE 5 MG TAB PO SCH (08:47)
[2021-01-06] MEDS: NICOTINE 21MG/24HR 1 EA TRANSDERMAL TD SCH (08:47)
[2021-01-06 14:00] VITALS: BP 131/76
--- NOTE | 2021-01-06 16:24 | IPNPDOC ---
Text Note Date of Service The patient was seen on 01/06/21. NOTE Subjective: Patient is a 45-year-old male presented with confusion, difficulty with concentration, anasarca, and increased abdominal distention found to have a sodium of 108 who was admitted for hyponatremia. Patient is feeling better. Patient had a large volume paracentesis performed earlier his admission. Patient has massive edema both extremities. Patient had a documented fever last night but patient does not remember having a fever last night. Patient did not receive any Tylenol or other medications for the fever and the fever spontaneously went away however, patient did have pneumonia earlier in his hospitalization. Patient's diuretics needed to be changed. Patient was otherwise feeling well today. Review of systems: General: Patient denies fevers HEENT: Patient denies headaches Cardiovascular: Patient denies chest pain Respiratory: Patient denies shortness of breath, cough GI: Patient denies abdominal pain, nausea, vomiting, diarrhea : Patient denies increased frequency or pain with urination Extremities: Patient reports swelling in his legs bilaterally Neurological: Patient denies numbness or tingling in legs Physical exam: Vitals: See below General: Alert and oriented male patient who was sleeping when I walked in. Patient woke up easily and did not appear to be in any acute distress. HEENT: Normocephalic, atraumatic, moist mucous membranes. Neck: No lymphadenopathy or thyromegaly Cardiac: Regular rate and rhythm, no murmurs, normal S1, normal S2 Pulm: Clear to auscultation bilaterally. No wheezes, rhonchi, rales Abd: Minimally distended, nontender to palpation, normal bowel sounds Ext: 3+ pitting edema up to the level of the knees bilaterally, 2+ pitting edema above the level of hip bilaterally Labs: See below Imaging: No new imaging is been performed Assessment/plan: 45-year-old male with history of alcoholic liver cirrhosis, tobacco abuse, presented with confusion, difficulty concentrating, anasarca, increased abdo monik distention found to have sodium of 108. Admitted for hyponatremia, metabolic encephalopathy and decompensated cirrhosis of the liver. Hospital course complicated by Klebsiella pneumonia, bowel ileus status post decompressive colonoscopy, massive fluid overload. 1. Decompensated alcoholic liver cirrhosis with portal hypertension, recurrent ascites and hepatic cephalopathy status post large-volume paracentesis. 6850 mL were removed. Patient still has massive edema both lower extremities. Patient is currently on spinal lactone 100 mg and Lasix 80 mg. If patient is electrolytes are within normal range and the patient is still edematous, this can be changed spironolactone 200 mg with Lasix 80 mg and we will see how the patient does with this diuretic regimen. 2. Hypomagnesemia. Will need magnesium rounds today. Continue to monitor. 3. Hypokalemia. Continue to monitor now the patient is on oral diuretics. 4. Ileus status post decompressive colonoscopy now improved. On regular diet. 5. Hyponatremia, improved. Due to beer Potomania and alcoholic liver cirrhosis. Continue to monitor and treat with diuretics. 6. Acute metabolic encephalopathy, improved. Due to acute hepatic encephalopathy and/or hyponatremia. 7. Pneumonia with Klebsiella and Streptococcus constellatus. Status post 7 days of antibiotics. Did have a fever last night but no other symptoms, if the patient is afebrile for 24 hours, can be discharged. 8. Type 2 diabetes mellitus. On lispro sliding scale. 9. Class III obesity. Complicating patient's care. 10. Alcohol use disorder. On thiamine and folate. DVT Prophylaxis: Lovenox Disposition: Pending clinical improvement, possible discharge tomorrow if afebrile for 24 hours and tolerating diuretics well. VS,Fishbone, I+O VS, Fishbone, I+O Laboratory Tests 01/06/21 05:35 Vital Signs Date Time Temp Pulse Resp B/P (MAP) Pulse Ox O2 Delivery O2 Flow Rate FiO2 01/06/21 06:00 99.1 89 18 130/68 (88) 96 Nasal Cannula 3.0 I&O- Last 24 Hours up to 6 AM 01/06/21 06:00 Intake Total 150 ml Output Total 720 ml Balance -570 ml WILL DUMONT DO Jan 06, 2021 16:24
[2021-01-06] MEDS: MAG SULF 1GM/100ML (MAG RUN) 1 GM in IV 1 EA IV SCH ×2 (17:43→22:47)
[2021-01-06 22:00] VITALS: BP 152/69
[2021-01-06] MEDS: SODIUM CHLORIDE 0.9% INJ 10 ML SYR IV PRN (22:49)
[2021-01-07] MEDS: SODIUM CHLORIDE 0.9% INJ 10 ML SYR IV SCH (05:25)
[2021-01-07 06:00] VITALS: BP 115/64
[2021-01-07] MEDS: LEVALBUTEROL 1.25 MG/0.5 ML CONCENTRATE NEB INH SCH ×2 (08:00→12:42)
[2021-01-07 08:10] LABS: HEMATOCRIT 25.6 % (42.0-52.0); HEMOGLOBIN 8.2 g/dl (13.5-17.5); MEAN CORPUSCULAR HEMOGLOBIN 29.7 pg (27.0-33.0); MEAN CORPUSCULAR VOLUME 92.8 fl (80.0-96.0); PLATELET COUNT, AUTOMATED 288 10^3/uL (150-450); RED BLOOD COUNT 2.76 10^6/uL (4.30-6.10); WHITE BLOOD COUNT 5.8 10^3/uL (4.0-10.0)
[2021-01-07 08:30] LABS: BLOOD UREA NITROGEN 5 MG/DL (7-18); CALCIUM LEVEL 8.1 MG/DL (8.5-10.1); CARBON DIOXIDE LEVEL 28 MEQ/L (21-32); CHLORIDE LEVEL 100 MEQ/L (98-107); CREATININE FOR GFR 0.71 MG/DL (0.70-1.30); GLOMERULAR FILTRATION RATE > 60.0 (>60); GLUCOSE, FASTING 163 MG/DL (70-100); MAGNESIUM LEVEL 1.6 MG/DL (1.8-2.4); SODIUM LEVEL 134 MEQ/L (136-145)
[2021-01-07 08:56] VITALS: BP 130/74
[2021-01-07] MEDS: HumaLOG INSULIN (NovoLOG) PER UNIT SC SCH (09:05)
[2021-01-07] MEDS: FINASTERIDE 5 MG TAB PO SCH (09:06)
[2021-01-07] MEDS: ENOXAPARIN 40MG/0.4ML SYRINGE (J1650 PER 10MG) SC SCH (09:06)
[2021-01-07] MEDS: MAGNESIUM OXIDE 400MG TAB (MAG-OX) PO SCH (09:06)
[2021-01-07] MEDS: NICOTINE 21MG/24HR 1 EA TRANSDERMAL TD SCH (09:06)
[2021-01-07] MEDS: TAMSULOSIN 0.4 MG CAP PO SCH (09:07)
[2021-01-07] MEDS: FUROSEMIDE 80 MG TAB PO SCH (09:07)
[2021-01-07] MEDS: FOLIC ACID 1 MG TAB PO SCH (09:07)
[2021-01-07] MEDS: MULTIVITAMINS/MINERALS THERAP 1 TAB PO SCH (09:07)
[2021-01-07] MEDS: SPIRONOLACTONE 50 MG TAB PO SCH (09:07)
[2021-01-07] MEDS: FAMOTIDINE 20 MG TAB PO SCH (09:07)
[2021-01-07] MEDS: THIAMINE 100 MG TAB PO SCH (09:07)
[2021-01-07] MEDS: POTASSIUM CHLORIDE 10MEQ SR TABLET PO SCH (09:07)
[2021-01-07] MEDS: FLUTICASONE PROP 0.05% NASAL SPRAY 16 GM (FLONASE) NARES SCH (09:08)
[2021-01-07] MEDS ORDERED: SPIRONOLACTONE 50 MG TAB PO ONE (09:25)
[2021-01-07] MEDS ORDERED: SPIR100T3 PO (09:46)
[2021-01-07] MEDS ORDERED: FURO80TA2 PO (09:46)
--- NOTE | 2021-01-07 17:02 | DS.PDOC ---
Discharge Summary General Date of Admission Dec 22, 2020 at 16:17 Date of Discharge 01/07/2021 Primary Care Physician: BAO HOGAN PA-C Attending Physician: WILL DUMONT DO Specialist/Consultants Involve: RACHAEL RESTREPO DO Specialist/Consultants Involve Dale Restrepo MD nephrology, Meet Lamb MD, general surgery; Henrique Berumen MD, gastroenterology Discharge Summary PROCEDURES PERFORMED DURING STAY: Decompressive colonoscopy. ADMITTING DIAGNOSES: 1. Chronic hyponatremia, symptomatic. 2. Acute metabolic encephalopathy 3. Anasarca 4. Nonalcoholic steatohepatitis/diffuse fatty liver with portal hypertension 5. Type 2 diabetes 6. Hyperlipidemia 7. Abnormal TSH 8. Carotid artery stenosis 9. Hypertension 10. Chronic low back pain 11. Obstructive of sleep apnea 12. Class III obesity 13. Nicotine dependence DISCHARGE DIAGNOSES: 1. Decompensated alcoholic liver cirrhosis with portal hypertension, recurrent ascites and hepatic encephalopathy status post large-volume paracentesis. 2. Hypomagnesemia 3. Hypokalemia 4. Hyponatremia 5. Ileus status post decompressive colonoscopy 6. Acute metabolic encephalopathy, resolved 7. Pneumonia with Klebsiella and Streptococcus constellatus 8. Type 2 diabetes mellitus 9. Class III obesity 10. Alcohol use disorder COMPLICATIONS/CHIEF COMPLAINT: Hyponatremia. HISTORY OF PRESENT ILLNESS: Patient is a 45-year-old male who presented to the emergency room with a 6-month history of increasing anasarca, weight gain of 20 pounds in December 03, 2020, difficulty concentrating with slight confusion and lethargy with increasing abdominal distention, lower extremity edema and shortness of breath with dyspnea on exertion after walking about 1520 feet. Patient complains of abdominal fullness and decreased appetite for the past 4 days with some nausea and overt vomiting. Patient denies any coffee-ground emesis or bright red blood per rectum. He has not been on fluid restriction his primary care has been giving him increasing doses of diuretics with no significant improvement. Otherwise denies any paroxysmal nocturnal dyspnea, orthopnea but has using 2-3 pillows to sleep at night. Patient does not abide by a fluid or salt restriction at baseline. In the emergency room, patient was found to be anasarca with a sodium level of 108. Hospitalist was called to admit for symptomatic hyponatremia and anasarca and most likely decompensated liver cirrhosis with history of alcohol abuse HOSPITAL COURSE: Patient was admitted to the hospital for hyponatremia nephrology was consulted. Patient's sodium level was slowly improved. Henry hyman's sodium level did improve to the point around 134-135. Patient developed a fever 3 days into the patient's hospitalization and chest x-ray increased lung markings the patient was started on antibiotics. Patient had Klebsiella and Streptococcus constellatus grow. Patient was treated with Zosyn initially which was changed to ceftriaxone once cultures came back. Patient developed increasin g abdominal pain and was found to have an ileus or bowel obstruction. General surgery was consulted who did not recommend any surgical intervention. Gastroenterology was also consulted who recommended large volume paracentesis with albumin infusion which was performed. Patient had neostigmine given IV to try to help with the ileus however, this was unsuccessful and a decompressive colonoscopy was performed on 12/27/2020. Patient did well with this procedure and did not have any other issues. Patient's diet was advanced. Patient's sodium continued to rise back into the normal range. Patient continue to have issues with fluid overload. Patient ended up having his diuretics switched to 1 00 mg of spironolactone and 80 mg of Lasix in the hospital. This can be continued as 100 mg spironolactone and 40 mg Lasix outpatient and can be changed in a ratio of 50 mg spironolactone to 20 mg of Lasix. Patient did well with this. Patient did develop a fever overnight on 01/05/2021 however, there was no other documentation and the fever resolved without any intervention. Patient did not have a fever and was doing better. Patient was doing better and was discharged home on 01/07/2021. DISCHARGE MEDICATIONS: Please see below. ALLERGIES: Please see below. PHYSICAL EXAMINATION ON DISCHARGE: VITAL SIGNS: Please see below. General: Alert and oriented male patient was sitting up in bed when I walked in. Patient did not appear to be in any acute distress. HEENT: Normocephalic, atraumatic, moist mucous membranes. Neck: No lymphadenopathy or thyromegaly Cardiac: Regular rate and rhythm, no murmurs, normal S1, normal S2 Pulm: Clear to auscultation bilaterally. No wheezes, rhonchi, rales Abd: Minimally distended, nontender to palpation, normal bowel sounds Ext: 3+ edema in the lower extremities bilaterally at the level of the knee. 2+ in the lower extremities from the knee to the hip LABORATORY DATA: Please see below. IMAGING: Chest x-ray performed on 12/22/2020 is reported to show no acute cardiopulmonary disease. CT abdomen pelvis without contrast found on 12/22/2020 was reported to show significant ascites along with findings suggesting underlying hepatocellular disease and/or hepatic steatosis. CT of the chest performed without contrast on 12/22/2020 was reported to show no acute thoracic abnormality. Noncalcified anterior left lung base nodule measuring 8 mm, and a thin-walled cavitary right apical lung lesion measuring 11 mm. Fleischner Society recommends for follow-up and management nodule small at 8 mm detected incidentally on screening CT for high risk patients initial follow-up CT in 3 to 6 months and then at 9 to 12 months and 24 months if no change. Hepatomegaly, hepatic steatosis and large volume ascites. CT of the head performed without contrast on 12/22/2020 was reported to show no acute intracranial pathology. Partial opacification of left mastoid air cells and left middle ear cavity. Correlate clinically for signs/symptoms of ostial m astoiditis. Chest x-ray performed on 12/23/2020 was reported to show no acute or focal cardiopulmonary disease. Paracentesis ultrasound was reported to show ultrasound-guided paracentesis yielding 6850 mL of yellow fluid. Duplex lower extremity bilateral ultrasound performed on 12/23/2020 was reported to show there is no ultrasonographic evidence of DVT involving any visualized deep venous structure of the bilateral lower extremity. Abdominal ultrasound performed on 12/23/2020 was reported to show there is diffuse decrease in hepatic parenchymal density, consistent with steatosis and/or cirrhotic morphology. Moderate ascites demonstrated. No evidence of portal vein thrombosis. Normal velocities in the main, right, and left portal veins Abdominal x-ray performed on 12/25/2020 was reported to show rather diffuse small and probable partial large bowel gas distention with limited detail assessment for abdominal bowel gas pattern. Chest x-ray performed on 12/25/2020 was reported to show minimal right perihilar platelike atelectasis. Otherwise no acute disease. Abdominal ultrasound performed on 12/25/2020 was reported to show minimal ascites. Large fluid-filled and air-filled dilated bowel loops throughout the abdomen. Paracentesis deferred. Chest x-ray performed on 12/25/2020 was reported to show no NG tube seen. Discoid atelectasis suspected in the right base. Increased interstitial markings left base. Abdominal x-ray performed on 12/25/2020 is reported to show dilated loops of small bowel consistent with small bowel obstruction versus incompetent ileocecal valve in the setting of colonic obstruction. Dilated colon demonstrate as well. Colonic obstruction to be considered clinically. Chest x-ray performed on 12/25/2020 was reported to show increased markings left lung base consistent with pneumonitis. CT of the abdomen and pelvis with contrast from 01/03/2021 was reported to show bilateral new pulmonary infiltrate/pneumonia. Worsening small and large bowel dilatation may be secondary to ileus or obstruction. Moderate amount of ascites again noted. Hepatic enlargement steatosis. Abdominal x-ray performed on 12/2020 reported to show moderate gas throughout the GI tract with mild small bowel distention mild distention of the transverse colon which is similar to CT done earlier in the day. Abdominal x-ray performed on 12/27/2020 was reported to show small bowel loops less prominent. Ileus pattern persist. Marked colonic distention is seen. 14.1 cm in the [place] flexure transverse dimension. Abdominal x-ray performed on 12/27/2020 was reported to show significantly improved colonic distention. There is moderate distention of the small bowel loops in the central abdomen. PROGNOSIS: Fair ACTIVITY: As tolerated. DIET: Regular diet with 2 L fluid restriction DISCHARGE PLAN: Discharge home DISPOSITION: 01 Home, Self-Care. DISCHARGE INSTRUCTIONS: 1. Follow-up with your primary care provider within 3 to 5 days of discharge. 2. Continue taking Lasix 40 mg but add spironolactone 100 mg to your regimen. 3. Avoid drinking alcohol 4. Return to the emergency department if symptoms worsen ITEMS TO FOLLOWUP ON ON OUTPATIENT: 1. Fluid status and increasing diuretics as necessary. DISCHARGE CONDITION: Stable. TIME SPENT ON DISCHARGE: 45 minutes. Vital Signs/I&Os Vital Signs Date Time Temp Pulse Resp B/P (MAP) Pulse Ox O2 Delivery O2 Flow Rate FiO2 01/07/21 08:56 90 130/74 (92) 01/07/21 06:00 98.7 20 91 Nasal Cannula 3.0 I&O- Last 24 Hours up to 6 AM 01/07/21 06:00 Intake Total 810 ml Output Total 450 ml Balance 360 ml Laboratory Data Labs 24H Laboratory Tests 2 01/06/21 17:55: Bedside Glucose (Misc Panel) 151H 01/06/21 21:14: Bedside Glucose (Misc Panel) 158H 01/07/21 07:35: Nucleated Red Blood Cells % (auto) 0.0, Anion Gap 6L, Glomerular Filtration Rate > 60.0, Calcium Level 8.1L, Magnesium Level 1.6L 01/07/21 11:41: Bedside Glucose (Misc Panel) 140H CBC/BMP Laboratory Tests 01/07/21 07:35 FSBS Laboratory Tests Test 01/06/21 17:55 01/06/21 21:14 01/07/21 11:41 Range/Units Bedside Glucose (Misc Panel) 151 158 140 70-105 MG/DL Discharge Medications Scheduled Amlodipine Besylate (Amlodipine Besylate) 5 Mg Tablet, 5 MG PO DAILY, (Reported) Aspirin (Aspirin EC) 81 Mg Tablet.dr, 81 MG PO DAILY, (Reported) Atorvastatin Calcium (Atorvastatin Calcium) 80 Mg Tablet, 80 MG PO QHS, (Reported) Cholecalciferol (Vitamin D3) (Vitamin D3) 50 Mcg Capsule, 50 MCG PO DAILY, (Reported) Finasteride (Finasteride) 5 Mg Tablet, 5 MG PO DAILY, (Reported) Furosemide (Furosemide) 40 Mg Tablet, 40 MG PO DAILY, (Reported) Metformin HCl (Metformin HCl) 850 Mg Tablet, 850 MG PO BID, (Reported) Morphine Sulfate (Morphine Sulfate ER) 15 Mg Tablet.er, 15 MG PO DAILY, (Reported) Multivitamins (Thera M Plus Tablet) 1 Each Tablet, 1 TAB PO DAILY, (Reported) Omeprazole (Omeprazole) 20 Mg Capsule.dr, 20 MG PO DAILY, (Reported) Spironolactone (Spironolactone) 100 Mg Tablet, 1 TAB PO DAILY Tamsulosin Hcl (Tamsulosin HCl) 0.4 Mg Capsule, 0.4 MG PO DAILY, (Reported) Scheduled PRN Fluticasone Propionate (Flonase Allergy Relief) 9.9 Ml [place].susp, 2 SPRAYS NARES DAILY PRN for CONGESTION, (Reported) Hydrocodone/Acetaminophen (Hydrocodone-Acetamin 7.5-325) 1 Each Tablet, 2 TABS PO Q6H PRN for PAIN LEVEL 7-10, (Reported) Allergies Coded Allergies: No Known Allergies (Unverified , 02/15/19) WILL DUMONT DO Jan 07, 2021 17:02
== END 2021-01-07 15:45 | disposition home or self-care (01) | DRG 280 ==
LOC: M ED 11:30 → M ED INP 16:17 → M ICU 19:18 → M PCU 12-27 18:00 → M MSPAV 12-29 14:40
PROVIDERS: ADMIT General Practice; ATTEND Family Medicine
PROC: 30233J1 Transfusion of Nonautologous Serum Albumin into Peripheral Vein, Percutaneous Approach (ICD-10-PCS; 2020-12-22)
PROC: 0W9G3ZZ Drainage of Peritoneal Cavity, Percutaneous Approach (ICD-10-PCS; 2020-12-23)
PROC: 02HV33Z Insertion of Infusion Device into Superior Vena Cava, Percutaneous Approach (ICD-10-PCS; 2020-12-23)
PROC: 3E0436Z Introduction of Nutritional Substance into Central Vein, Percutaneous Approach (ICD-10-PCS; 2020-12-27)
PROC: 0D7E8ZZ Dilation of Large Intestine, Via Natural or Artificial Opening Endoscopic (ICD-10-PCS; principal; 2020-12-27 08:51)
DX: K70.31 Alcoholic cirrhosis of liver with ascites (principal); J15.0 Pneumonia due to Klebsiella pneumoniae; G93.41 Metabolic encephalopathy; N17.9 Acute kidney failure, unspecified; K59.39 Other megacolon; K72.90 Hepatic failure, unspecified without coma; K76.6 Portal hypertension; K75.81 Nonalcoholic steatohepatitis (NASH); I65.23 Occlusion and stenosis of bilateral carotid arteries; E87.5 Hyperkalemia; E87.1 Hypo-osmolality and hyponatremia; E83.42 Hypomagnesemia; K56.7 Ileus, unspecified; J44.1 Chronic obstructive pulmonary disease with (acute) exacerbation; Z68.42 Body mass index [BMI] 45.0-49.9, adult; K70.11 Alcoholic hepatitis with ascites; E11.9 Type 2 diabetes mellitus without complications; I10 Essential (primary) hypertension; K29.70 Gastritis, unspecified, without bleeding; M54.50 Low back pain, unspecified; E78.5 Hyperlipidemia, unspecified; I25.10 Atherosclerotic heart disease of native coronary artery without angina pectoris; G47.33 Obstructive sleep apnea (adult) (pediatric); F17.210 Nicotine dependence, cigarettes, uncomplicated; K21.9 Gastro-esophageal reflux disease without esophagitis; K64.8 Other hemorrhoids; F10.10 Alcohol abuse, uncomplicated; E66.9 Obesity, unspecified; Z79.82 Long term (current) use of aspirin; Z79.891 Long term (current) use of opiate analgesic; Z79.899 Other long term (current) drug therapy; Z20.822 Contact with and (suspected) exposure to COVID-19

== ENCOUNTER → 2021-01-14 | Outpatient (REF) | payer OTHER ==
[~2021-01-14] MED LIST changes: +FURO80TA2 PO; +SPIR100T3 PO; +VITA200016 PO; +VITMTA PO
[2021-01-14 17:01] LABS: BASO % 0.5 % (0.0-1.0); EOS # 0.2 10^3/uL (0.0-0.5); EOS % 3.1 % (0.0-3.0); HEMATOCRIT 32.7 % (42.0-52.0); HEMOGLOBIN 10.3 g/dl (13.5-17.5); LYMPH # 1.7 10^3/uL (1.5-5.0); LYMPH % 27.2 % (24.0-44.0); MEAN CORPUSCULAR HEMOGLOBIN 28.6 pg (27.0-33.0); MEAN CORPUSCULAR HGB CONC 31.5 g/dl (32.0-36.5); MEAN CORPUSCULAR VOLUME 90.8 fl (80.0-96.0); MONO # 0.8 10^3/uL (0.0-0.8); MONO % 12.7 % (2.0-8.0); NEUTROPHILS # 3.5 10^3/uL (1.5-8.5); PLATELET COUNT, AUTOMATED 545 10^3/uL (150-450); WHITE BLOOD COUNT 6.2 10^3/uL (4.0-10.0)
[2021-01-14 17:21] LABS: INR 1.27; PROTHROMBIN TIME 16.4 SECONDS (12.7-14.5)
[2021-01-14 19:43] LABS: ALBUMIN 2.7 GM/DL (3.2-5.2); ALT/SGPT 25 U/L (12-78); BLOOD UREA NITROGEN 6 MG/DL (7-18); CALCIUM LEVEL 9.7 MG/DL (8.5-10.1); CARBON DIOXIDE LEVEL 25 MEQ/L (21-32); CHLORIDE LEVEL 101 MEQ/L (98-107); CREATININE FOR GFR 0.85 MG/DL (0.70-1.30); GLOMERULAR FILTRATION RATE > 60.0 (>60); GLUCOSE, FASTING 134 MG/DL (70-100); POTASSIUM SERUM 4.4 MEQ/L (3.5-5.1); SODIUM LEVEL 133 MEQ/L (136-145); TOTAL PROTEIN 8.3 GM/DL (6.4-8.2)
== END ==
LOC: M LABDRWAD 16:26
PROVIDERS: ATTEND Internal Medicine Gastroenterology
DX: K70.31 Alcoholic cirrhosis of liver with ascites (principal)

== ENCOUNTER → 2021-01-14 | Outpatient (REF) | payer OTHER ==
[2021-01-14 19:27] LABS: ALBUMIN 2.7 GM/DL (3.2-5.2); ALT/SGPT 24 U/L (12-78); BLOOD UREA NITROGEN 7 MG/DL (7-18); CALCIUM LEVEL 9.9 MG/DL (8.5-10.1); CARBON DIOXIDE LEVEL 28 MEQ/L (21-32); CHLORIDE LEVEL 101 MEQ/L (98-107); CREATININE FOR GFR 0.84 MG/DL (0.70-1.30); GLOMERULAR FILTRATION RATE > 60.0 (>60); GLUCOSE, FASTING 139 MG/DL (70-100); MAGNESIUM LEVEL 1.2 MG/DL (1.8-2.4); POTASSIUM SERUM 4.4 MEQ/L (3.5-5.1); SODIUM LEVEL 134 MEQ/L (136-145); TOTAL PROTEIN 8.3 GM/DL (6.4-8.2)
== END ==
LOC: M SFHCADAM 14:47
PROVIDERS: ATTEND Family Medicine
DX: K76.9 Liver disease, unspecified (principal); E87.1 Hypo-osmolality and hyponatremia; E83.42 Hypomagnesemia

== ENCOUNTER → 2021-01-29 | Outpatient (REF) | payer OTHER ==
[2021-01-29 17:29] LABS: BASO % 0.3 % (0.0-1.0); EOS # 0.1 10^3/uL (0.0-0.5); HEMATOCRIT 35.7 % (42.0-52.0); HEMOGLOBIN 11.3 g/dl (13.5-17.5); LYMPH % 30.9 % (24.0-44.0); MEAN CORPUSCULAR HEMOGLOBIN 27.4 pg (27.0-33.0); MEAN CORPUSCULAR HGB CONC 31.7 g/dl (32.0-36.5); MEAN CORPUSCULAR VOLUME 86.4 fl (80.0-96.0); MONO # 0.8 10^3/uL (0.0-0.8); MONO % 12.4 % (2.0-8.0); NEUTROPHILS # 3.5 10^3/uL (1.5-8.5); NEUTROPHILS % 54.1 % (36.0-66.0); PLATELET COUNT, AUTOMATED 262 10^3/uL (150-450); RED BLOOD COUNT 4.13 10^6/uL (4.30-6.10); WHITE BLOOD COUNT 6.5 10^3/uL (4.0-10.0)
[2021-01-29 17:49] LABS: BLOOD UREA NITROGEN 8 MG/DL (7-18); CALCIUM LEVEL 10.4 MG/DL (8.5-10.1); CARBON DIOXIDE LEVEL 26 MEQ/L (21-32); CHLORIDE LEVEL 96 MEQ/L (98-107); CREATININE FOR GFR 0.89 MG/DL (0.70-1.30); GLOMERULAR FILTRATION RATE > 60.0 (>60); GLUCOSE, FASTING 165 MG/DL (70-100); MAGNESIUM LEVEL 1.5 MG/DL (1.8-2.4); POTASSIUM SERUM 4.3 MEQ/L (3.5-5.1); SODIUM LEVEL 133 MEQ/L (136-145)
== END ==
LOC: M SFHCADAM 14:18
PROVIDERS: ATTEND Physician Assistant Medical
DX: D75.839 Thrombocytosis, unspecified (principal); E83.42 Hypomagnesemia; K70.31 Alcoholic cirrhosis of liver with ascites

== ENCOUNTER → 2021-01-29 | Outpatient (CLI) | payer OTHER ==
--- NOTE | 2021-01-29 14:47 | REP ---
INDICATION: DDD. COMPARISON: None. TECHNIQUE: Five views FINDINGS: There is bilateral marginal osteophytosis at L1-2 and L4-5. There is advanced L5-S1 and L1-2 disc space narrowing. There is more mild to moderate posterior disc space narrowing at all other levels. Vertebral body height and alignment is within normal limits. There is no evidence of spondylolysis or spondylolisthesis. The pedicles are intact bilaterally. Degenerative facet joint changes are seen bilaterally L3-4 to L5-S1. IMPRESSION: Chronic changes as described above. <Electronically signed by Nitin Martinez > 01/29/21 [id number]
== END ==
LOC: M ADAMS 14:19
PROVIDERS: ATTEND Physician Assistant Medical
DX: M51.36 Other intervertebral disc degeneration, lumbar region (principal)

== ENCOUNTER → 2021-02-11 | Outpatient (CLI) | payer OTHER ==
--- NOTE | 2021-02-11 14:14 | REPVR ---
PROCEDURE INFORMATION: Exam: MR Lumbar Spine Without Contrast Exam date and time: 02/11/2021 10:57 AM Age: 45 years old Clinical indication: Low back pain; Additional info: Ollie leg pain w/tingling lbp TECHNIQUE: Imaging protocol: Multiplanar magnetic resonance images of the lumbar spine without intravenous contrast. COMPARISON: DX SPINE LS COMPLETE 01/29/2021 2:10 PM FINDINGS: Vertebrae: There is 4 mm of grade 1 retrolisthesis of L5 with respect to S1. Normal vertebral body alignment is otherwise preserved. There is moderate to severe intervertebral disc space loss at L5/S1, with endplate changes. Spinal cord: Normal signal. No cord compression. L1-L2: Assessment is limited by artifact. There is shallow disc bulging and mild facet hypertrophy. The neural foramina are not adequately evaluated. L2-L3: There is shallow disc bulging. There is mild facet hypertrophy. There is mild bilateral neural foraminal narrowing. L3-L4: There is shallow disc bulging. There is mild facet hypertrophy. There is mild bilateral neural foraminal narrowing. L4-L5: There is diffuse disc bulging. There is moderate facet hypertrophy. There is mild canal stenosis. There is mild to moderate bilateral neural foraminal narrowing. L5-S1: There is diffuse disc bulging/uncovering related to listhesis with a focal left inferior extrusion. This narrows the left lateral recess. There is moderate facet hypertrophy. There is moderate to severe right and severe left neural foraminal narrowing. Soft tissues: Unremarkable. IMPRESSION: Degenerative disc disease and spondylosis. At L5/S1, changes contribute to moderate to severe right and severe left neural foraminal narrowing. Electronically signed by: Coby Savage On 02/11/2021 14:14:01 PM
== END ==
LOC: M PLAIMG 10:05
PROVIDERS: ATTEND Physician Assistant Medical
DX: M51.26 Other intervertebral disc displacement, lumbar region (principal)

== ENCOUNTER 2021-10-18 10:41 | Emergency (ER) | payer OTHER ==
[~2021-10-18] VITALS: Ht 185.4 cm; Wt 129.4 kg
[~2021-10-18 10:41] MED LIST changes: +OMEP-173 PO; -OMEP-218 PO
[2021-10-18 11:48] LABS: BASO % 0.3 % (0.0-1.0); EOS % 0.3 % (0.0-3.0); HEMATOCRIT 31.6 % (42.0-52.0); HEMOGLOBIN 10.4 g/dl (13.5-17.5); LYMPH # 1.1 10^3/uL (1.5-5.0); LYMPH % 17.8 % (24.0-44.0); MEAN CORPUSCULAR HEMOGLOBIN 29.2 pg (27.0-33.0); MEAN CORPUSCULAR HGB CONC 32.9 g/dl (32.0-36.5); MEAN CORPUSCULAR VOLUME 88.8 fl (80.0-96.0); MONO # 0.8 10^3/uL (0.0-0.8); MONO % 13.6 % (2.0-8.0); NEUTROPHILS # 4.1 10^3/uL (1.5-8.5); NEUTROPHILS % 67.7 % (36.0-66.0); PLATELET COUNT, AUTOMATED 124 10^3/uL (150-450); RED BLOOD COUNT 3.56 10^6/uL (4.30-6.10)
[2021-10-18 12:00] LABS: INR 1.41; PROTHROMBIN TIME 17.7 SECONDS (12.7-14.5)
[2021-10-18 12:24] LABS: CK-MB VALUE MASS 4.5 NG/ML (<3.6); MB/CK RELATIVE INDEX 0.93 (< OR =4)
[2021-10-18 12:29] LABS: ALBUMIN 2.8 GM/DL (3.2-5.2); ALT/SGPT 32 U/L (12-78); BILIRUBIN,DIRECT 2.4 MG/DL (0.0-0.2); BILIRUBIN,TOTAL 3.7 MG/DL (0.2-1.0); BLOOD UREA NITROGEN 4 MG/DL (7-18); CALCIUM LEVEL 9.3 MG/DL (8.5-10.1); CARBON DIOXIDE LEVEL 24 MEQ/L (21-32); CHLORIDE LEVEL 98 MEQ/L (98-107); CREATININE FOR GFR 1.01 MG/DL (0.70-1.30); GLOMERULAR FILTRATION RATE > 60.0 (>60); GLUCOSE, FASTING 179 MG/DL (70-100); LIPASE 121 U/L (73-393); POTASSIUM SERUM 3.7 MEQ/L (3.5-5.1); SODIUM LEVEL 133 MEQ/L (136-145)
[2021-10-18] MEDS ORDERED: IPRATROPIUM 0.5MG/ALBUTEROL 2.5MG INH SOL UD 3ML (DUONEB) NEB ONE (12:40)
[2021-10-18] MEDS ORDERED: FUROSEMIDE 40MG/4ML VIAL (J1940) IV ONE (12:40)
[2021-10-18 13:58] LABS: APPEARANCE, URINE CLEAR (CLEAR); BACTERIA, URINE AUTO NEGATIVE (NEGATIVE); BILIRUBIN, URINE AUTO NEGATIVE (NEGATIVE); BLOOD, URINE BLOOD NEGATIVE (NEGATIVE); COLOR, URINE YELLOW (YELLOW); GLUCOSE, URINE (UA) AUTO NEGATIVE (NEGATIVE); KETONE, URINE AUTO NEGATIVE (NEGATIVE); LEUKOCYTE ESTERASE, URINE AUTO NEGATIVE (NEGATIVE); MUCUS, URINE SMALL (NEGATIVE); NITRITE, URINE AUTO NEGATIVE (NEGATIVE); PROTEIN, URINE AUTO NEGATIVE (NEGATIVE); RBC, URINE AUTO 0 /HPF (0-3); SPECIFIC GRAVITY URINE AUTO 1.009 (1.002-1.035); SQUAMOUS EPITHELIAL CELL UR AU 0 /HPF (0-6); WBC, URINE AUTO 1 /HPF (0-3)
[2021-10-18] MEDS ORDERED: SPIR100T3 PO (14:44)
[2021-10-18] MEDS ORDERED: VENTAER INH (14:45)
[2021-10-18 14:59] LABS: NT-PRO BNP 85 PG/ML (<125)
[2021-10-18 15:15] VITALS: BP 127/70
== END 2021-10-18 15:27 | disposition home or self-care (01) ==
LOC: M ED 10:41
DX: R60.9 Edema, unspecified (principal); K74.60 Unspecified cirrhosis of liver; E80.6 Other disorders of bilirubin metabolism; J98.01 Acute bronchospasm; I10 Essential (primary) hypertension; E11.9 Type 2 diabetes mellitus without complications; F17.200 Nicotine dependence, unspecified, uncomplicated; Z79.84 Long term (current) use of oral hypoglycemic drugs; Z79.899 Other long term (current) drug therapy; Z79.82 Long term (current) use of aspirin
CPT/HCPCS: 71045; 76705; 80048; 80076; 81001; 82550; 82553; 83690; 83880; 85025; 85610; 93005; 93041; 93970; 94640; 94760; 96374; 99285; J1940